=== PATIENT | female | born 1950 | race Caucasian/White ===

== ENCOUNTER → 2017-08-03 | Outpatient (CLI) | payer OTHER, MEDICAID ==
[~2017-08-03] MED LIST: ABILIFY 5 MG TAB5 M1 PO; ALBUTEROL SULF8.5 GM INH; AMBIEN 10 MG TA10 MG PO; AMBIEN 5 MG TABL5 M1 PO; ASPIR 8181 MG PO; ASPIRIN EC81 M1 PO; ASPIRIN81 M2 PO; AUGMENTIN 875-1 EACH PO; AUGMENTIN 875875 MG PO; AZITHROMYCIN 2250 MG PO; BACLOFEN20 MG PO; CALCIUM PO; CARBIDOPA-LEVO1 EAC6 PO; CARBIDOPA-LEVO1 EAC8 PO; CARBIDOPA-LEVO1 EAC9 PO; CARDIZEM30 MG PO; CEFDINIR300 MG PO; CEFUROXIME250 MG PO; CLONAZEPAM 0.50.5 M1 PO; CLONAZEPAM 1 MG1 M1 PO; COLACE100 MG PO; COUMADIN 3 MG TA3 M1 PO; CRESTOR5 MG PO; DILAUDID2 MG PO; DILTIAZEM 24HR120 M1 PO; DOXYCYCLINE 10100 MG PO; DUONEB 2.5-0.5 M3 ML INH; EFFEXOR XR150 MG PO; EFFEXOR XR75 MG PO; ESZOPICLONE3 MG PO; FENTANYL PA25 MCG/HR TRANSDERM; FENTANYL PA50 MCG/HR TRANSDERM; FLEXERIL PO; FLUCONAZOLE 10100 MG PO; FUROSEMIDE 20 M20 M1 PO; GABAPENTIN 100100 MG PO; HYDROCODON-ACE1 EAC7 PO; HYDROXYZINE HCL50 MG PO; IBUPROFEN 600600 M1 PO; IRON325 PO; K-DUR10 MEQ PO; KLONOPIN0.5 MG PO; KLOR-CON M2020 MEQ PO; LASIX 40 MG TAB40 M2 PO; LEVAQUIN 500 M500 M2 PO; LEVOTHYROXINE0.05 MG PO; LIDOCAINE 4% K1 EACH TOP; LIORESAL 10 MG10 MG PO; LIPITOR 10 MG10 M1 PO; LIPITOR10 MG PO; LISINOPRIL5 MG PO; LUNESTA3 MG PO; MELATONIN1 MG PO; MELATONIN3 M1 PO; MELATONIN5 M4 PO; METOPROLOL SUCC25 M1 PO; MIRALAX17 GM PO; MUCINEX600 MG PO; NEBULIZER MISCELL; NEURONTIN 300300 M1 PO; NEURONTIN100 MG PO; NORCO 5-325 TA1 EACH PO; OMEPRAZOLE 20 M20 M1 PO; OMEPRAZOLE20 M2 PO; OMEPRAZOLE20 MG PO; ONDANSETRON HCL4 M2 PO; OXYGEN MISCELL; PAROXETINE HCL10 MG PO; PAXIL 20 MG TAB20 MG PO; PAXIL10 MG; PAXIL10 MG PO; PAXIL20 MG PO; PERCOCET 5-3251 EACH PO; PERCOCET 7.5-31 EACH PO; POTASSIUM20 PO; PREDNISONE 10 M10 MG PO; PREDNISONE 20 M20 MG PO; PRILOSEC20 MG PO; PROAIR HFA8.5 GM INH; PROTONIX40 M4 PO; PROVENTIL HFA6.7 G1 INH; RANITIDINE 150150 M1 PO; RECLAST 55 MG/1002 IV; SENNA LAX8.6 MG PO; SENOKOT-S1 TA1 PO; SINEMET 25-1001 EAC1 PO; SPIRIVA INH; SSD CREAM 1% 5050 G1; SYNTHROID88 MCG PO; TRAMADOL 50 MG50 MG PO; TRAZODONE HCL50 MG PO; VENTOLIN HFA 1818 GM INH; VISTARIL 25 MG25 M1 PO; VITAMIN D31000 UNI2 PO; ZOFRAN ODT4 MG PO; [UNRECOGNIZED DRUG - OTHER] TOP
== END ==
LOC: M.MRI 08-01 07:30
DX: M51.36 Other intervertebral disc degeneration, lumbar region (principal); M25.551 Pain in right hip; M25.552 Pain in left hip; G20 Parkinson's disease; G62.9 Polyneuropathy, unspecified; R26.9 Unspecified abnormalities of gait and mobility

== ENCOUNTER → 2017-09-07 | Outpatient (CLI) | payer OTHER, MEDICAID ==
--- NOTE | 2017-10-11 13:59 | PAINCON ---
[address] [address] PAIN MANAGEMENT CONSULTATION Name: JOELCORAJOANNA PABLO Room: [facility] Fabian#: [id number] Admission: 09/07/17 Attend Phys: Anurag Boudreaux MD Discharge: Date of : 52 Report #: [id number] THIS REPORT FOR: //name// CC: Maylin Doty DATE OF SERVICE: 09/07/2017 CHIEF COMPLAINT: Chronic pain in the low back, hips, and knees. FOLLOWUP HISTORY: The patient is a 67-year-old female who has been referred to the pain clinic. She has a history of chronic pain. She has been on opioid medications. A number of months ago, she was on a Duragesic patch as well as 10 mg Broseley for pain control. The patient had a number of falls as well as orthostatic hypotension. As a result of that, the patient has been tapered from her medication opioids. At this juncture, she seems to be at the lowest effective dose without side effects. The patient also uses Neurontin. Chronic pain continues to limit the patient's activity levels. She spends a significant amount of her time in a wheelchair. She also suffers from Parkinson's disease and is followed by her doctor in that regard. She feels that her pain is about 50% improved with use of her current medications. She rates her pain as a 6/10. The patient feels that she is "hurting all the time." Describes as it is continuous, shooting and sharp. She has had hip replacements. The patient has been noting some constipation. She has been started on most Movantik to help with this narcotic-induced constipation. ALLERGIES: NEOSPORIN, BUSPAR AND TIZANIDINE. CURRENT MEDICATIONS: CompAir nebulizer, aspirin 81 mg daily, stool softener 100 mg 2 tablets by mouth at bedtime, omeprazole 20 mg, Lasix 20 mg p.r.n. edema, trazodone 50 mg at bedtime, paroxetine 20 mg, Lidoderm cream external painful areas, levothyroxine 81 mcg, carbidopa/levodopa 25/175 mg in the a.m. and 4 times daily, MiraLax 17 grams, baclofen 10 mg t.i.d. spasms, gabapentin 100 mg t.i.d., Broseley 5/325 one p.o. t.i.d., Klonopin 0.5 mg t.i.d. anxiety, Symbicort 160/4.5 aerosol pulse 2 times daily, benzonatate 200 mg p.r.n. cough t.i.d., ProAir 2 puffs q. 4 hours p.r.n. shortness of breath, ipratropium-albuterol 0.5/2.5 nebulizer q.i.d., shortness of breath, oxygen 3 liters 24 hours daily, Claritin 10 mg and Movantik 12.5 mg. PAST MEDICAL HISTORY: Anxiety/depression, hypertension, atrial fibrillation, peripheral vascular disease, colonic polyp, gastritis, metabolic syndrome, chronic obstructive pulmonary disease, gastroesophageal reflux, hypothyroidism, hyperlipidemia, non-Hodgkin's lymphoma, degenerative joint disease, chronic pain, osteoarthritis, diverticulosis, Parkinson's disease, atrophic vaginitis, and iron deficiency anemia. [address] [place] [address] PAIN MANAGEMENT CONSULTATION Name: CORA MALDONADO [id number] Admission: 09/07/17 Attend Phys: Anurag Boudreaux MD Discharge: Date of : 52 Report #: [id number] PAST SURGICAL HISTORY: Hysterectomy 1982, cholecystectomy in 2006, left hip fracture and nailing, left hip total replacement and revision in 1993 -- 01/2010, right elbow bone spur removed, right elbow fracture and repair, right elbow surgery in 2000 -- 12/2008 -- 06/2009, breast biopsy 2005, right axillary lymph node resection, polypectomy in 2006, left browplasty 07/2009, bilateral eye Lasik surgery, right cataract removal in 10/2011, trimalleolar fracture, status post ORIF in Fall 12/2016. HOSPITALIZATIONS/MAJOR DIAGNOSTIC PROCEDURES: 1. Bronchitis in 2011; pneumonia, nausea and vomiting in 2011; lethargy, low oxygen on 05/18/2012; tremors; Cardiac oxygen, started to 2013; pneumonia in 06/2015; Congestive heart failure in 10/2015; Congestive failure in 12/2015. SOCIAL HISTORY: The patient is a former smoker, quit in 2012. Marital status, devoiced; ambulates, using a wheelchair. REVIEW OF SYSTEMS: A 12-point review recent weight change, fatigue, weakness, headaches, wears glasses, walking, shortness of breath, swelling of feet, ankles, frequent coughs, shortness of breath, constipation, wakes at night to urinate, joint pain, joint stiffness, weakness of muscles, muscle pain and cramps, back pain, difficulty walking; varicose veins; frequent recurrent headaches, lightheadedness, dizziness, numbness and tingling, tremors, memory loss, nervousness, depression, slow to heal. LABORATORY DATA: MRI of the cervical spine dated 12/11/2012 reveals findings of C3-C4 widely patent foramen. Mild broad-based disk bulge. This represents the level of greatest disk bulge. It does not impinge upon the spinal cord or foramen. C4-C5 widely patent broad disk bulge. C5-C6 widely patent broad disk bulge. C6-C7 right foraminal narrowing, left foramen intact, mild broad-based disk bulge. C7-T1 widely patent bilaterally. No significant bulging. MRI lumbar spine without contrast on 08/03/2017 reveals lumbar spine is anatomically aligned. The L1-L2, L2-L3 and L3-L4 spaces are normal in appearance. There is minimal degenerative disk disease at L4-L5 without disk bulge. Spinal stenosis or neural foraminal narrowing. Mild degenerative disk disease at L5-S1 with mild broad-based disk bulge with no spinal stenosis or neural foraminal narrowing. IMPRESSION: Very mild degenerative disk disease of the lower lumbar spine. PAIN CLINIC ASSESSMENT: 1. The patient has osteoarthritis, right hip and left hip. 2. Height 5 feet 10 inches, weight 247 pounds. BMI not listed. 3. VITAL SIGNS: Blood pressure 100/67, heart rate 76, respiratory rate 16, room air saturation 96%, temperature 97.6. 4. Pain intensity 8-10. [place] [address] PAIN MANAGEMENT CONSULTATION Name: CORA MALDONADO [facility] Peralta[facility] [id number] Admission: 09/07/17 Attend Phys: Anurag Boudreaux MD Discharge: Date of : 52 Report #: [id number] 5. Fall risk. The patient has not fallen in the last 3 months. She has fallen in the past and notes some increased chronic pain in her right hip, which can be problematic. 6. Blood thinner. The patient is not on a blood thinning medication. 7. History of hypertension. The patient is not being treated for hypertension. 8. Opioid greater than 6 weeks. The patient has been using opioids for some time. She has been weaned down to 5 mg p.o. hydrocodone t.i.d. 9. Risk assessment tool. 10. Functional assessment tool. 11. Recreational drugs. The patient denies use of recreational drugs. 12. Tobacco: The patient quit smoking about 4 years ago; 50-year smoking history. 13. Alcohol: The patient denies use of alcoholic beverages. PHYSICAL EXAMINATION: GENERAL: The patient is a well-developed white female. She is alert and oriented. Does have some symptomatology consistent with parkinsonian disease. HEENT: Normocephalic, atraumatic. Extraocular muscles intact. Sclerae nonicteric. Mucous membranes moist. Hearing within normal limits. NECK: Without adenopathy reasonable range of motion, some limitations. CHEST: Decreased breath sounds. HEART: Regular rate. EXTREMITIES: Upper extremities muscle strength 4+/5; lower muscle strength 4+/5. The patient complains of pain and discomfort in her hips, right and left. The patient is in a wheelchair. Some decrease muscle strength in her lower extremities. She complains of pain in the knees and low back. IMPRESSION: 1. Chronic pain treated with opioid therapy in the past and tapered to her current dose at this juncture. 2. Hypertension. 3. Atrial fibrillation history. 4. Peripheral vascular disease. 5. Gastritis. 6. Metabolic syndrome. 7. Chronic obstructive pulmonary disease, uses CPAP machine. 8. Gastroesophageal reflux. 9. Hypothyroidism. 10. Hyperlipidemia. 11. Non-Hodgkin's lymphoma. 12. Degenerative joint disease. 13. Osteoarthritis. 14. Diabetes ketoacidosis. 15. Parkinson's disease. 16. Atrophic vaginitis. 17. Depression with anxiety. [address] [address] PAIN MANAGEMENT CONSULTATION Name: CORA MALDONADO Room: [facility] [place] Peralta#: [id number] Admission: 09/07/17 Attend Phys: Anurag Boudreaux MD Discharge: Date of : 52 Report #: [id number] RECOMMENDATIONS: We discussed treatment options with the patient. We explained that the CDC has set forth guidelines for opioid use. Her doctor has tried to taper her down to a level that would be helpful with pain. We are aware that more than likely we will not be able to quell the patient's pain completely, but hopefully with use of opioid medications will continue to be helpful. We will provide the patient with hydrocodone 5 mg 1 p.o. t.i.d. We will note its efficacy. She will call us if she has any problems with her medications. We would like to thank you for letting us participate in her care. The patient will follow up in the pain clinic in the near future. <ELECTRONICALLY SIGNED> By: Anurag Boudreaux MD 10/11/17 1359 1549 0036N. José Boudreaux MD /nt
== END ==
LOC: M.PC 01:37
DX: M54.5 Low back pain (principal); M25.561 Pain in right knee; M25.562 Pain in left knee; M25.551 Pain in right hip; M25.552 Pain in left hip

== ENCOUNTER 2017-10-02 14:55 | Inpatient (IN) | payer OTHER, MEDICAID ==
[~2017-10-02] VITALS: Ht 177.8 cm; Wt 115.7 kg
[~2017-10-02 14:55] MED LIST changes: -AZITHROMYCIN 2250 MG PO; -CEFDINIR300 MG PO; -MUCINEX600 MG PO
[2017-10-02 15:24] VITALS: BP 130/67
[2017-10-02 16:21] LABS: ABSOLUTE EOSINOPHILS 0.1 thou/uL (0.0-0.7); ABSOLUTE LYMPHOCYTES 0.6 thou/uL (0.8-5.3); ABSOLUTE MONOCYTES 0.5 thou/uL (0.0-1.2); ABSOLUTE NEUTROPHILS 3.5 thou/uL (1.6-8.1); BASOPHILS 0.5 %; EOSINOPHILS 2.4 %; HEMATOCRIT 35.6 % (37.0-47.0); HEMOGLOBIN 11.7 gm/dL (12.0-15.0); LYMPHOCYTES 12.6 %; MCH 29.9 pg (26.0-34.0); MCHC 32.8 g/dL (28.0-37.0); MONOCYTES 11.3 %; MPV 8.5 fl. (7.2-11.1); NUCLEATED RBCS 0 /100WBC; PLATELET COUNT* 169 thou/uL (150-400); POLYS 73.2 %; RBC 3.91 mil/uL (4.20-5.00); RDW-CV 15.5 % (10.5-14.5); WBC 4.7 thou/uL (4.0-11.0)
[2017-10-02 16:30] LABS: ANION GAP 4 mmol/L (7-16); BUN 10 mg/dL (7-18); CALCIUM 8.7 mg/dL (8.5-10.1); CHLORIDE 105 mmol/L (98-107); CO2 34 mmol/L (21-32); CREATININE 0.8 mg/dL (0.6-1.3); GLUCOSE 111 mg/dL (70-99); POTASSIUM 3.7 mmol/L (3.5-5.1); SODIUM 143 mmol/L (136-145)
[2017-10-02 16:37] LABS: ALBUMIN 3.1 g/dL (3.4-5.0); ALKALINE PHOSPHATASE 84 U/L (46-116); SGOT 18 U/L (15-37); SGPT 6 U/L (30-65); TOTAL BILIRUBIN 0.3 mg/dL (<0.1-1.0); TROPONIN-I LEVEL <0.06 ng/mL (<0.06)
[2017-10-02 17:32] VITALS: BP 170/97
[2017-10-02 18:50] VITALS: BP 146/84
--- NOTE | 2017-10-02 19:45 | NUR ---
PATIENT ADMITTED TO ROOM 308 VIA CART FROM ER AT 1750. ADMISSION HISTORY, ASSESSMENT, AND VITALS CHARTED. IV FLUIDS STARTED AND IV ANTIBIOTICS INFUSING. URINE SAMPLE AND SPUTUM SAMPLE SENT. UP SBA TO BSC. SCDS IN PLACE. O2 IN PLACE AT 3L/NC. PATIENT'S DAUGHTER BROUGHT IN HOME CPAP. ORIENTED TO ROOM AND ENVIRONMENT. CALL LIGHT WITHIN REACH. HOURLY ROUNDING COMPELTED. WILL CONTINUE WITH PLAN OF CARE.
[2017-10-02 19:58] LABS: URINE BILIRUBIN NEGATIVE (Negative); URINE BLOOD NEGATIVE (Negative); URINE CLARITY CLEAR; URINE COLOR YELLOW; URINE GLUCOSE-RANDOM NEGATIVE (Negative); URINE KETONES NEGATIVE (Negative); URINE LEUKOCYTES-REFLEX NEGATIVE (Negative); URINE NITRITE-REFLEX NEGATIVE (Negative); URINE PROTEIN NEGATIVE (Negative); URINE UROBILINOGEN 0.2 E.U./dl (0.2-1.0)
[2017-10-02 21:00] VITALS: BP 100/64
[2017-10-03 00:02] VITALS: BP 88/38; BP 96/54
[2017-10-03 03:36] VITALS: BP 118/67
[2017-10-03 04:38] LABS: HEMATOCRIT 33.7 % (37.0-47.0); MCH 29.5 pg (26.0-34.0); MCHC 32.6 g/dL (28.0-37.0); MCV 90.6 fL (80.0-100.0); MPV 8.2 fl. (7.2-11.1); RBC 3.72 mil/uL (4.20-5.00); RDW-CV 14.8 % (10.5-14.5); WBC 3.8 thou/uL (4.0-11.0)
[2017-10-03 04:55] LABS: CREATININE 0.8 mg/dL (0.6-1.3); MAGNESIUM 2.1 mg/dL (1.8-2.4); POTASSIUM 4.6 mmol/L (3.5-5.1)
--- NOTE | 2017-10-03 05:36 | NUR ---
PATIENT SLEPT PART OF THE NIGHT. IV FLUIDS CONTINUE TO INFUSE ORDERED. PATIENT REMAINS ON OXYGEN AT 3L PER NASAL CANNULA. PATIENT WAS GIVEN PAIN MEDICINE TWICE THIS SHIFT. WILL CONTINUE TO MONITOR.
[2017-10-03 08:10] VITALS: BP 136/62
[2017-10-03] MEDS ORDERED: CLONAZEPAM 0.50.5 M1 PO (10:36)
--- NOTE | 2017-10-03 13:56 | EKG ---
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 Helper: [place] : 1950 Requested By: Michelle Rogers Order Number: [id number] MD: Bob Jones Measurements Intervals [place] Rate: 102 P: 41 PA: 192 QRS: 95 QRSD: 106 T: -20 QT: 343 QTc: 447 Interpretive Statements Sinus tachycardia Right axis deviation Borderline repolarization abnormality Compared to ECG 03/16/2017 11:59:45 Sinus rate has increased Electronically Signed On 10-03-2017 13:56:52 CDT by Bob Jones [email or web address] <ELECTRONICALLY SIGNED> By: Bob Jones MD, [facility] 10/03/17 1356 1615 1615 Bob Jones MD, [facility] /EPI
--- NOTE | 2017-10-03 14:56 | NUR ---
SW met with pt to complete initial assessment, introduce self, and SW role. Pt alert and oriented. Pt lives at home with her dtr. Pt has wc, RW, cane, O2 and CPAP. Pt has hx of [facility] and hx [facility]. Pt said she is not current with OP therapy in [place] and plans to return home with dtr and resume OP therapies at nd. SW to continue to follow. No needs anticipated.
[2017-10-03 16:00] VITALS: BP 128/41
--- NOTE | 2017-10-03 18:07 | NUR ---
PATIENT HAS BEEN A/O X 4 THIS SHIFT. MEDICATED FOR GENERALIZED PAIN WITH PARTIAL RELIEF. O2 IN PLACE AT 3L/NC, CONTINUES ON RT TREATMENTS AND TESSALON PERLES. PATIENT UP SBA TO BSC. PATIENT TOLERATING DIET. PATIENT TO BE SALINE LOCKED AFTER CURRENT IVF COMPLETED. CONTINUES ON IV STEROIDS. TO HAVE CHEST XRAY IN AM. HOURLY ROUNDING COMPLETED. CALL LIGHT WITHIN REACH. WILL CONTINUE WITH PLAN OF CARE.
[2017-10-04 00:40] VITALS: BP 101/70
[2017-10-04 04:37] LABS: HEMATOCRIT 34.2 % (37.0-47.0); HEMOGLOBIN 11.4 gm/dL (12.0-15.0); MCH 30.3 pg (26.0-34.0); MCHC 33.4 g/dL (28.0-37.0); MCV 90.9 fL (80.0-100.0); MPV 8.2 fl. (7.2-11.1); NUCLEATED RBCS 0 /100WBC; PLATELET COUNT* 187 thou/uL (150-400); RBC 3.77 mil/uL (4.20-5.00); RDW-CV 15.1 % (10.5-14.5); WBC 6.6 thou/uL (4.0-11.0)
[2017-10-04 04:44] LABS: CALCIUM 8.1 mg/dL (8.5-10.1); MAGNESIUM 2.4 mg/dL (1.8-2.4); POTASSIUM 4.5 mmol/L (3.5-5.1)
--- NOTE | 2017-10-04 05:57 | NUR ---
PATIENT SLEPT MOST OF THE NIGHT. IV REMAINS SALINE LOCKED. PATIENT WAS GIVEN PAIN MEDICINE ONCE THIS SHIFT. PATIENT REMAINS ON OXYGEN AT 3L PER NASAL CANNULA WITH CPAP AT NIGHT. WILL CONTINUE TO MONITOR.
[2017-10-04 06:15] LABS: ABSOLUTE MONOCYTES 0.2 thou/uL (0.0-1.2); ABSOLUTE NEUTROPHILS 5.4 thou/uL (1.6-8.1)
[2017-10-04 06:16] LABS: PLATELET ESTIMATE ADEQUATE
[2017-10-04 08:15] VITALS: BP 144/79
[2017-10-04 17:15] VITALS: BP 129/73
--- NOTE | 2017-10-04 19:33 | NUR ---
PATIENT HAS BEEN A/O X 4 THIS SHIFT. MEDICATED FOR GENERALIZED PAIN WITH PARTIAL RELIEF THIS SHIFT. SALINE LOCK PATENT. PATIENT CONTINUES ON O2 AT 3L/NC. PATIENT WITH HARSH NON PRODUCTIVE COUGH, TESSALON PERLES HELPING COUGH. PATIENT HAD REPEAT CHEST XRAY THIS SHIFT. UP TO CHAIR FOR MEALS. SBA TO BSC. IV STEROIDS TAPERING DOWN. FAMILY IN THIS AFTERNOON TO VISIT. PER PATIENT TENTATIVE DISCHARGE ON MONDAY. HOURLY ROUNDING COMPLETED. CALL LIGHT WITHIN REACH. WILL CONTINUE WITH PLAN OF CARE.
[2017-10-05 00:38] VITALS: BP 105/62
--- NOTE | 2017-10-05 05:51 | NUR ---
PATIENT SLEPT MOST OF THE NIGHT. IV REMAINS SALINE LOCKED. PATIENT WAS GIVEN PAIN MEDICINE ONCE THIS SHIFT. PATIENT REMAINS ON OXYGEN AT 3L. PATIENT IS POSSIBLY GOING HOME TODAY. WILL CONTINUE TO MONITOR.
[2017-10-05 09:00] VITALS: BP 148/92
[2017-10-05] MEDS ORDERED: AZITHROMYCIN 2250 MG PO (09:46)
[2017-10-05] MEDS ORDERED: CEFDINIR300 MG PO (09:46)
[2017-10-05] MEDS ORDERED: PREDNISONE 10 M10 MG PO (09:46)
[2017-10-05] MEDS ORDERED: MUCINEX600 MG PO (09:46)
[2017-10-05 11:21] VITALS: BP 148/92
--- NOTE | 2017-10-05 16:35 | NUR ---
PATIENT DISCHARGED TO HOME WITH DAUGHTER. PATIENT VERBALIZES UNDERSTANDING OF PAPERWORK AND SCRIPTS. IV DC'D. 02 3L NC AT HOME. ALL BELONGINGS SENT WITH PATIENT. NO COMPLAINTS OF PAIN THIS SHIFT. PATIENT TAKEN OUT VIA WHEELCHAIR.
== END 2017-10-05 16:37 | disposition home or self-care (01) | DRG 871 ==
LOC: M.ERS 14:55 → M.TBA-ER 16:39 → M.3W 16:39
PROVIDERS: Physician Assistant; ADMIT Internal Medicine
DX: A41.9 Sepsis, unspecified organism (principal); J96.21 Acute and chronic respiratory failure with hypoxia; J15.9 Unspecified bacterial pneumonia; E44.1 Mild protein-calorie malnutrition; J44.1 Chronic obstructive pulmonary disease with (acute) exacerbation; J44.0 Chronic obstructive pulmonary disease with (acute) lower respiratory infection; I48.91 Unspecified atrial fibrillation; Z96.642 Presence of left artificial hip joint; G89.29 Other chronic pain; M54.9 Dorsalgia, unspecified; M19.90 Unspecified osteoarthritis, unspecified site; G20 Parkinson's disease; E05.90 Thyrotoxicosis, unspecified without thyrotoxic crisis or storm; Z99.81 Dependence on supplemental oxygen; Z92.21 Personal history of antineoplastic chemotherapy; Z85.71 Personal history of Hodgkin lymphoma; Z79.899 Other long term (current) drug therapy; Z88.1 Allergy status to other antibiotic agents; Z88.8 Allergy status to other drugs, medicaments and biological substances; Z68.36 Body mass index [BMI] 36.0-36.9, adult

== ENCOUNTER 2018-06-12 08:44 | Emergency (ER) | payer OTHER, MEDICAID ==
[~2018-06-12] VITALS: Ht 177.8 cm; Wt 110.7 kg
[~2018-06-12 08:44] MED LIST changes: +AZITHROMYCIN 2250 MG PO; +CEFDINIR300 MG PO; +MUCINEX600 MG PO
[2018-06-12] MEDS ORDERED: MOBIC15 MG PO (09:17)
[2018-06-12 09:37] LABS: URINE BILIRUBIN NEGATIVE (Negative); URINE BLOOD NEGATIVE (Negative); URINE CLARITY CLEAR; URINE COLOR YELLOW; URINE GLUCOSE-RANDOM NEGATIVE (Negative); URINE KETONES NEGATIVE (Negative); URINE LEUKOCYTES-REFLEX 1+ (Negative); URINE NITRITE-REFLEX NEGATIVE (Negative); URINE PROTEIN NEGATIVE (Negative); URINE UROBILINOGEN 0.2 E.U./dl (0.2-1.0)
[2018-06-12 09:46] LABS: SQUAMOUS 0-3 Few /LPF (0-3)
[2018-06-12 09:47] LABS: BACTERIA-REFLEX 1-9 Few /HPF (None Seen); CASTS None Seen /LPF (None Seen); CRYSTALS None Seen /LPF (None Seen); MUCUS 0-3 Light strn/LPF (None Seen); URINE RBC None Seen /HPF (0-2); URINE WBC-REFLEX 0-5 Rare /HPF (0-5)
[2018-06-12] MEDS ORDERED: KEFLEX500 M1 PO (09:48)
[2018-06-12] MEDS ORDERED: BACTRIM DS TAB1 EACH PO (09:55)
[2018-06-12 10:03] VITALS: BP 139/76
== END 2018-06-12 10:03 | disposition home or self-care (01) ==
LOC: M.ERS 08:44
PROVIDERS: Personal Emergency Response Attendant
DX: M25.561 Pain in right knee (principal); N39.0 Urinary tract infection, site not specified; I48.91 Unspecified atrial fibrillation; G89.29 Other chronic pain; M54.9 Dorsalgia, unspecified; J44.9 Chronic obstructive pulmonary disease, unspecified; G20 Parkinson's disease; E03.9 Hypothyroidism, unspecified; J96.11 Chronic respiratory failure with hypoxia; M19.90 Unspecified osteoarthritis, unspecified site; F17.210 Nicotine dependence, cigarettes, uncomplicated; Z86.2 Personal history of diseases of the blood and blood-forming organs and certain disorders involving the immune mechanism; Z96.642 Presence of left artificial hip joint; Z88.1 Allergy status to other antibiotic agents; Z88.8 Allergy status to other drugs, medicaments and biological substances

== ENCOUNTER → 2018-06-13 | Outpatient (CLI) | payer OTHER, MEDICAID ==
[~2018-06-13] MED LIST changes: +BACTRIM DS TAB1 EACH PO; +KEFLEX500 M1 PO; +MOBIC15 MG PO
[2018-06-13 14:35] LABS: ABSOLUTE EOSINOPHILS 0.1 thou/uL (0.0-0.7); ABSOLUTE MONOCYTES 0.4 thou/uL (0.0-1.2); ABSOLUTE NEUTROPHILS 4.6 thou/uL (1.6-8.1); BASOPHILS 0.6 %; EOSINOPHILS 1.4 %; HEMATOCRIT 38.3 % (37.0-47.0); HEMOGLOBIN 12.2 gm/dL (12.0-15.0); LYMPHOCYTES 16.5 %; MCHC 31.7 g/dL (28.0-37.0); MCV 91.4 fL (80.0-100.0); MONOCYTES 6.5 %; MPV 7.9 fl. (7.2-11.1); NUCLEATED RBCS 0 /100WBC; PLATELET COUNT* 183 thou/uL (150-400); RBC 4.19 mil/uL (4.20-5.00); WBC 6.1 thou/uL (4.0-11.0)
[2018-06-13 14:55] LABS: ALBUMIN 3.2 g/dL (3.4-5.0); CALCIUM 8.5 mg/dL (8.5-10.1); CREATININE 1.1 mg/dL (0.6-1.3); POTASSIUM 4.2 mmol/L (3.5-5.1); TOTAL BILIRUBIN 0.3 mg/dL (<0.1-1.0); TOTAL PROTEIN 7.1 g/dL (6.4-8.2)
[2018-06-13 15:55] LABS: ESR (SEDRATE) 36 mm/hr (0-30)
[2018-06-13 23:06] LABS: IgA 132 mg/dL (87-352); IgG 1033 mg/dL (700-1600); IgM 174 mg/dL (26-217)
== END ==
LOC: M.LAB 14:04
PROVIDERS: Psychiatry & Neurology Neuromuscular Medicine
DX: G20 Parkinson's disease (principal); G62.9 Polyneuropathy, unspecified; R26.9 Unspecified abnormalities of gait and mobility; J44.9 Chronic obstructive pulmonary disease, unspecified

== ENCOUNTER 2019-03-24 18:17 | Emergency (ER) | payer OTHER, MEDICAID ==
[~2019-03-24] VITALS: Ht 177.8 cm; Wt 113.4 kg
[2019-03-24] MEDS ORDERED: PROMETHAZINE-D473 M1 PO (18:32)
[2019-03-24] MEDS ORDERED: CEFDINIR300 MG PO (18:33)
[2019-03-24] MEDS ORDERED: MIRALAX119 GM PO (18:34)
[2019-03-24] MEDS ORDERED: BENZONATATE200 MG PO (18:34)
[2019-03-24] MEDS ORDERED: MELOXICAM15 MG PO (18:35)
[2019-03-24] MEDS ORDERED: MUCINEX600 MG PO (18:36)
[2019-03-24] MEDS ORDERED: SYMBICORT160 MCG/4. INH (18:36)
[2019-03-24] MEDS ORDERED: TRAZODONE 150150 M1 PO (18:36)
[2019-03-24] MEDS ORDERED: FUROSEMIDE 20 M20 MG PO (18:37)
[2019-03-24] MEDS ORDERED: OMEPRAZOLE40 MG PO (18:37)
[2019-03-24] MEDS ORDERED: CLONAZEPAM 0.50.5 M1 PO (18:47)
[2019-03-24 18:51] LABS: ABSOLUTE EOSINOPHILS 0.1 thou/uL (0.0-0.7); ABSOLUTE LYMPHOCYTES 0.9 thou/uL (0.8-5.3); ABSOLUTE MONOCYTES 0.5 thou/uL (0.0-1.2); ABSOLUTE NEUTROPHILS 5.2 thou/uL (1.6-8.1); BASOPHILS 0.5 %; EOSINOPHILS 2.2 %; HEMATOCRIT 36.5 % (37.0-47.0); HEMOGLOBIN 11.7 gm/dL (12.0-15.0); LYMPHOCYTES 13.2 %; MCH 28.9 pg (26.0-34.0); MCHC 32.2 g/dL (28.0-37.0); MCV 89.8 fL (80.0-100.0); MONOCYTES 7.3 %; MPV 7.6 fl. (7.2-11.1); NUCLEATED RBCS 0 /100WBC; PLATELET COUNT* 233 thou/uL (150-400); POLYS 76.8 %; RBC 4.06 mil/uL (4.20-5.00); RDW-CV 15.8 % (10.5-14.5); WBC 6.7 thou/uL (4.0-11.0)
[2019-03-24 19:01] LABS: APTT 24.3 Seconds (25.0-31.3); CALCIUM 8.2 mg/dL (8.5-10.1); CREATININE 1.1 mg/dL (0.6-1.3); POTASSIUM 4.2 mmol/L (3.5-5.1); PROTIME 10.1 Seconds (9.20-11.50)
[2019-03-24 19:25] LABS: CK-MB MASS 0.5 ng/mL (<0.5-3.6); MAGNESIUM 1.8 mg/dL (1.8-2.4); TOTAL BILIRUBIN 0.2 mg/dL (<0.1-1.0); TOTAL PROTEIN 7.1 g/dL (6.4-8.2)
[2019-03-24 19:45] VITALS: BP 124/73
--- NOTE | 2019-03-25 13:11 | EKG ---
[place] [address] ELECTROCARDIOGRAM REPORT Name: CORA MALDONADO Room: [facility]#: [id number] Admission: 03/24/19 Attend Phys: Discharge: 03/24/19 Date of : 52 Report #: [id number] THIS REPORT FOR: //name// [facility] ED Test Date: 2019-03-24 Test Time: 18:21:58 Pat Name: CORA MALDONADO Department: Room: Gender: F Teamsite Developer: KRISTINA : 1950 Requested By: Kelvin Winston Order Number: [id number] MD: Jose Shoemaker Measurements Intervals [place] Rate: 85 P: 32 ID: 160 QRS: 85 QRSD: 104 T: 62 QT: 379 QTc: 451 Interpretive Statements Sinus rhythm Borderline right axis deviation Nonspecific T abnormalities, anterior leads Compared to ECG 10/02/2017 16:15:59 Sinus tachycardia no longer present Electronically Signed On 03-25-2019 13:11:05 GROUP THERAPY COUNSELOR by Jose Shoemaker [email or web address] <ELECTRONICALLY SIGNED> By: Jose Shoemaker MD, [facility] 03/25/19 1311 20 20 Jose Shoemaker MD, FAC /EPI
== END 2019-03-24 19:45 | disposition home or self-care (01) ==
LOC: M.ERS 18:17
PROVIDERS: Family Medicine
DX: M94.0 Chondrocostal junction syndrome [Tietze] (principal); I48.91 Unspecified atrial fibrillation; G89.29 Other chronic pain; M54.9 Dorsalgia, unspecified; E03.9 Hypothyroidism, unspecified; M19.90 Unspecified osteoarthritis, unspecified site; Z88.1 Allergy status to other antibiotic agents

== ENCOUNTER 2019-07-15 15:36 | Inpatient (IN) | payer OTHER, MEDICAID ==
[~2019-07-15] VITALS: Ht 177.8 cm; Wt 113.4 kg
[~2019-07-15 15:36] MED LIST changes: +BENZONATATE200 MG PO; +FUROSEMIDE 20 M20 MG PO; +MELOXICAM15 MG PO; +MIRALAX119 GM PO; +OMEPRAZOLE40 MG PO; +ONDANSETRON ODT4 MG PO; +PREDNISONE 5 MG5 M1 PO; +PROMETHAZINE-D473 M1 PO; +SYMBICORT160 MCG/4. INH; +SYNTHROID88 MC1 PO; +TRAZODONE 150150 M1 PO
[2019-07-15 15:47] VITALS: BP 106/67
[2019-07-15 16:38] LABS: ABSOLUTE BASOPHILS 0.1 thou/uL (0.0-0.2); ABSOLUTE LYMPHOCYTES 2.1 thou/uL (0.8-5.3); ABSOLUTE MONOCYTES 0.9 thou/uL (0.0-1.2); ABSOLUTE NEUTROPHILS 7.8 thou/uL (1.6-8.1); BASOPHILS 0.5 %; EOSINOPHILS 0.4 %; HEMATOCRIT 40.5 % (37.0-47.0); HEMOGLOBIN 13.3 gm/dL (12.0-15.0); LYMPHOCYTES 19.4 %; MCH 29.2 pg (26.0-34.0); MCHC 32.9 g/dL (28.0-37.0); MONOCYTES 7.9 %; MPV 7.8 fl. (7.2-11.1); NUCLEATED RBCS 0 /100WBC; PLATELET COUNT* 326 thou/uL (150-400); POLYS 71.8 %; RBC 4.55 mil/uL (4.20-5.00); RDW-CV 15.4 % (10.5-14.5); WBC 10.9 thou/uL (4.0-11.0)
[2019-07-15 16:44] LABS: CALCIUM 9.1 mg/dL (8.5-10.1); CREATININE 1.1 mg/dL (0.6-1.3); POTASSIUM 3.6 mmol/L (3.5-5.1)
[2019-07-15 16:55] LABS: ALBUMIN 3.5 g/dL (3.4-5.0); TOTAL BILIRUBIN 0.4 mg/dL (<0.1-1.0); TOTAL PROTEIN 7.5 g/dL (6.4-8.2)
[2019-07-15 17:01] LABS: URINE BILIRUBIN NEGATIVE (Negative); URINE BLOOD TRACE (Negative); URINE CLARITY CLEAR; URINE COLOR YELLOW; URINE GLUCOSE-RANDOM NEGATIVE (Negative); URINE KETONES NEGATIVE (Negative); URINE LEUKOCYTES-REFLEX 1+ (Negative); URINE NITRITE-REFLEX NEGATIVE (Negative); URINE PROTEIN NEGATIVE (Negative); URINE SPECIFIC GRAVITY 1.015 (1.005-1.030); URINE UROBILINOGEN 0.2 E.U./dl (0.2-1.0)
[2019-07-15 17:13] LABS: BACTERIA-REFLEX 1-9 Few /HPF (None Seen); CASTS None Seen /LPF (None Seen); SQUAMOUS 0-3 Few /LPF (0-3); URINE RBC 0-2 Rare /HPF (0-2); URINE WBC-REFLEX 0-5 Rare /HPF (0-5)
[2019-07-15 17:14] LABS: URIC ACID CRYSTALS 0-3 Few /LPF (None Seen)
--- NOTE | 2019-07-15 18:54 | NUR ---
attempted to due CTA IV infiltrated with saline, I attempted to start IV 2 times patient returned to ED for new IV exam not compleated
[2019-07-15 20:48] LABS: AMP/METHAMP Negative (Negative); BARBITURATES Negative (Negative); BENZODIAZEPINES Negative (Negative); COCAINE Negative (Negative); METHADONE Negative (Negative); OPIATES POSITIVE (Negative); PCP Negative (Negative); THC Negative (Negative)
[2019-07-15 22:50] VITALS: BP 119/68
[2019-07-15 23:15] VITALS: BP 129/66
--- NOTE | 2019-07-16 05:53 | NUR ---
PATIENT ARRIVED ON FLOOR FROM ER AT ABOUT 2300. PATIENT ADMISSION HISTORY AND ASSESSMENT WAS COMPLETED CHARTED. IV FLUIDS WERE STARTED AT 100 ML/HR. PATIENT IS ON OXYGEN AT 3L AND WEARS THAT AT HOME. WILL CONTINUE TO MONITOR.
[2019-07-16 08:20] VITALS: BP 124/69
[2019-07-16 08:43] VITALS: BP 120/72
[2019-07-16 08:45] VITALS: BP 113/62
[2019-07-16 08:49] VITALS: BP 108/69
--- NOTE | 2019-07-16 12:08 | NUR ---
CM SPOKE TO THE PT TO DISCUSS HER HOME SITUATION, AND DISCHARGE PLANNING NEEDS. PT HAD RECENTLY BEEN DISCHARGED FROM THIS HOSPITAL ON 07/09/19 TO HER HOME WITH HER DTR BEATRICE AND HER GRANDSON. PT NORMALLY INDEPENDENT AT HOME WITH BATHING AND DRESSING. PATIENT OWNS A WALKER, CANE, AND W/C FOR MOBILITY. PT HAS HOME 02 @ 3L AND CPAP THROUGH [facility]. PT HAS A HX OF SNF AT [facility]. PT IS CURRENTLY ON-SERVICE WITH [facility]. CM CONFIRMED THIS WITH [facility] AND PT IS ON-SERVICE WITH [facility] FOR NURSING ONLY. CM INFORMED PHYSICIAN OF ALL OF THE ABOVE INFO AND THE NEED FOR PT/OT ORDERS, AND ORDERS TO RESUME HH AT ID. CM WILL REMAIN AVAILABLE TO ASSIST AND FOLLOW NEEDED. [facility] PH: [phone] FAX: [phone]
--- NOTE | 2019-07-16 12:40 | EKG ---
[place] [address] ELECTROCARDIOGRAM REPORT Name: CORA MALDONADO Room: [address] ADM IN M.R.#: [id number] Admission: 07/15/19 Attend Phys: Tesfaye Arora, Discharge: Date of : 52 Date of Service: 07/15/19 1644 Report #: [id number] THIS REPORT FOR: //name// [facility] ED Test Date: 2019-07-15 Test Time: 16:44:54 Pat Name: CORA MALDONADO Department: Room: [facility] Gender: F Recreation Therapy Teacher: VICKIE : 1950 Requested By: Kallie Winslow Order Number: [id number] MD: Jose Shoemaker Measurements Intervals [place] Rate: 79 P: 26 SD: 160 QRS: 82 QRSD: 108 T: 46 QT: 379 QTc: 435 Interpretive Statements Sinus rhythm Borderline right axis deviation Abnormal T, consider ischemia, anterior leads Artifact in lead(s) I,II,aVR Compared to ECG 07/03/2019 14:55:48 Possible ischemia still present Electronically Signed On 07-16-2019 12:39:07 CDT by Jose Shoemaker [email or web address] <ELECTRONICALLY SIGNED> By: Jose Shoemaker MD, FACC 07/16/19 1239 1644 1644 Jose Shoemaker MD, FAC /EPI
--- NOTE | 2019-07-16 15:47 | 2DMMODE ---
[place] [address] 2 D/M-MODE ECHOCARDIOGRAM Name: MALDONADOCORA Room: [address] IN ..#: [id number] Admission: 07/15/19 Attend Phys: Tesfaye Arora, Discharge: Date of : 52 Date of Service: 07/16/19 1546 Report #: [id number] THIS REPORT FOR: cc: Maylin Morillo,Jose Mcacrty MD [facility] ~ APPROVED REPORT Study performed: 07/16/2019 14:13:51 EXAM: Comprehensive 2D, Doppler, and color-flow Echocardiogram Patient Location: In-Patient Room #: 304 Status: routine BSA: 2.29 HR: 73 bpm BP: 108/69 mmHg Rhythm: NSR Other Information Study Quality: Good Indications Hypotension Syncope 2D Dimensions IVSd: 14.42 (7-11mm) LVOT Diam: 19.56 (18-24mm) LVDd: 52.03 mm PWd: 13.57 (7-11mm) Ascending Ao: 36.09 (22-36mm) LVDs: 31.01 (25-40mm) Aortic Root: 37.57 mm Volumes Left Atrial Volume (Systole) LA ESV Index: 24.70 mL/m2 Aortic Valve AoV Peak Miguel Angel.: 1.30 m/s AO Peak Gr.: 6.71 mmHg LVOT Max P.46 mmHg AO Mean Gr.: 3.62 mmHg LVOT Mean P.80 mmHg LVOT Max V: 1.27 m/s AO V2 VTI: 24.88 cm LVOT Mean V: 0.75 m/s GENIA (VTI): 2.90 cm2 LVOT V1 VTI: 24.06 [place] [address] 2 D/M-MODE ECHOCARDIOGRAM Name: CORA MALDONADO Room: [address] IN ..#: [id number] Admission: 07/15/19 Attend Phys: Tesfaye Arora, Discharge: Date of : 52 Date of Service: 07/16/19 1546 Report #: [id number] Mitral Valve E/A Ratio: 0.75 MV Decel. Time: 339.69 ms MV E Max Miguel Angel.: 0.48 m/s MV PHT: 98.51 ms MVA (PHT): 2.23 cm2 TDI E/Lateral E': 6.86 E/Medial E': 4.80 Medial E' Miguel Angel.: 0.10 m/s Lateral E' Miguel Angel.: 0.07 m/s Pulmonary Valve PV Peak Miguel Angel.: 0.97 m/s PV Peak Gr.: 3.73 mmHg Tricuspid Valve RAP Estimate: 5.00 mmHg TR Peak Gr.: 21.68 mmHg RVSP: 26.00 mmHg PA Pressure: 26.00 mmHg Left Ventricle The left ventricle is normal size. There is normal LV segmental wall motion. Mild concentric left ventricular hypertrophy. Left ventricular systolic function is normal. The left ventricular ejection fraction is within the normal range. LVEF is 55-60%. Grade I - abnormal relaxation pattern. Right Ventricle The right ventricle is normal size. The right ventricular systolic function is normal. Atria The left atrium size is normal. The right atrium size is normal. Aortic Valve The aortic valve is normal in structure. No aortic regurgitation is present. There is no aortic valvular stenosis. Mitral Valve The mitral valve is normal in structure. Trace mitral regurgitation. No evidence of mitral valve stenosis. Tricuspid Valve The tricuspid valve is normal in structure[place] [address] 2 D/M-MODE ECHOCARDIOGRAM Name: MALDONADOCORA Room: [address]#: [id number] Admission: 07/15/19 Attend Phys: Tesfaye Arora, Discharge: Date of : 52 Date of Service: 07/16/19 1546 Report #: [id number] regurgitation. Pulmonic Valve The pulmonary valve is normal in structure. Trace pulmonic regurgitation. Great Vessels The aortic root is normal in size. IVC is normal in size and collapses >50% with inspiration. Pericardium There is no pericardial effusion. <Conclusion> Mild concentric left ventricular hypertrophy. LVEF is 55-60%. <ELECTRONICALLY SIGNED> By: Jose Shoemaker MD, [facility] 07/16/19 1546 1546 1546 Jose Shoemaker MD, FACC /INF
[2019-07-16 16:00] VITALS: BP 106/62
[2019-07-16 19:45] VITALS: BP 111/66
--- NOTE | 2019-07-17 00:09 | NUR ---
INITAL ASSESMENT COMPLETED AT 1944. PT PLEASANT AND COOPERATIVE. PT GIVEN PRN NORCO FOR PAIN AT THAT TIME WITH GOOD RESULTS. CALL LIGHT IN REACH, PT USING PROPERLY.
[2019-07-17 07:30] VITALS: BP 100/63
[2019-07-17 12:00] VITALS: BP 91/50
[2019-07-17 12:22] VITALS: BP 91/60
[2019-07-17 12:24] VITALS: BP 97/67
[2019-07-17 14:21] LABS: HEMATOCRIT 35.8 % (37.0-47.0); HEMOGLOBIN 11.8 gm/dL (12.0-15.0); MCHC 32.9 g/dL (28.0-37.0); MCV 91.2 fL (80.0-100.0); MPV 8.3 fl. (7.2-11.1); NUCLEATED RBCS 0 /100WBC; RBC 3.92 mil/uL (4.20-5.00); RDW-CV 15.4 % (10.5-14.5); WBC 10.4 thou/uL (4.0-11.0)
[2019-07-17 14:26] LABS: PLATELET COUNT* 205 thou/uL (150-400)
[2019-07-17 14:33] LABS: ALBUMIN 2.7 g/dL (3.4-5.0); CALCIUM 7.2 mg/dL (8.5-10.1); POTASSIUM 4.4 mmol/L (3.5-5.1); TOTAL BILIRUBIN 0.2 mg/dL (<0.1-1.0); TOTAL PROTEIN 6.1 g/dL (6.4-8.2)
[2019-07-17 15:41] LABS: ABSOLUTE LYMPHOCYTES 0.1 thou/uL (0.8-5.3); ABSOLUTE MONOCYTES 0.1 thou/uL (0.0-1.2); ABSOLUTE NEUTROPHILS 10.2 thou/uL (1.6-8.1); PLATELET ESTIMATE ADEQUATE
[2019-07-17 15:42] LABS: ANISOCYTOSIS Occasional
--- NOTE | 2019-07-17 18:19 | NUR ---
REMAINS A&OX4. RESPIRATIONS EVEN AND UNLABORED ON O2 AT 3L. CONTINUES TO BE HOARSE. C/OS HEADACHE. MEDICATED WITH PAIN MED PER MD ORDER. IVFS INFUSING WITHOUT DIFFICULTY. UP TO BSC WITH STAND BY ASSIST. CALL CARROLL IN REACH. NSG WILL CONTINUE TO ASSESS.
[2019-07-17 19:30] VITALS: BP 138/66
--- NOTE | 2019-07-18 00:13 | NUR ---
PT RANG CALL LIGHT AND REPORTED HEARTBURN. PT STATES SHE TAKES PROTONIX AT HOME AND HAS NOT HAD IT SINCE ADMIT. SPOKE WITH DR MCMAHAN AND RECIEVED ORDERS.
[2019-07-18 08:00] VITALS: BP 100/70
[2019-07-18] MEDS ORDERED: DEPAKOTE ER250 MG PO (12:46)
[2019-07-18] MEDS ORDERED: PREDNISONE 5 MG5 M1 PO (12:57)
--- NOTE | 2019-07-18 13:35 | NUR ---
Pt to dc home with family today and HH services to resume care. SW faxed referral and resumption of care RN orders plus PT OT ST orders to pt current HH and preference of [facility].
[2019-07-18 13:37] VITALS: BP 138/66
[2019-07-18 13:55] VITALS: BP 138/66
[2019-07-18 14:01] VITALS: BP 138/66
[2019-07-18 15:22] VITALS: BP 138/66
--- NOTE | 2019-07-18 18:56 | NUR ---
ASSESSMENT COMPLETED DOCUMENTED THIS MORNING. STABLE AND NO ACUTE ISSUES NOTED. DR. PRESCOTT ROUNDING AND DC ORDERS REC'D. 1430 PATIENT DC'D VIA W/C TO DAUGHTER'S CAR, DC INSTRUCTIONS GIVEN WITH UNDERSTANDING AND SIGNATURE. ALL PERSONAL BELONGINGS SENT.
== END 2019-07-18 14:30 | disposition home or self-care (01) | DRG 189 ==
LOC: M.ERS 15:36 → M.3W 22:06 → M.TBA-ER 22:06 → M.3W 23:00
PROVIDERS: Emergency Medicine; Internal Medicine; Physician Assistant; ADMIT Internal Medicine
PROC: 5A09357 Assistance with Respiratory Ventilation, Less than 24 Consecutive Hours, Continuous Positive Airway Pressure (ICD-10-PCS; principal; 2019-07-18)
DX: J96.21 Acute and chronic respiratory failure with hypoxia (principal); I95.1 Orthostatic hypotension; I48.91 Unspecified atrial fibrillation; Z96.642 Presence of left artificial hip joint; M54.9 Dorsalgia, unspecified; G89.29 Other chronic pain; J44.9 Chronic obstructive pulmonary disease, unspecified; G20 Parkinson's disease; M19.90 Unspecified osteoarthritis, unspecified site; F11.11 Opioid abuse, in remission; I87.8 Other specified disorders of veins; G47.33 Obstructive sleep apnea (adult) (pediatric); E03.9 Hypothyroidism, unspecified; Z79.82 Long term (current) use of aspirin; Z79.01 Long term (current) use of anticoagulants; Z85.72 Personal history of non-Hodgkin lymphomas; Z87.440 Personal history of urinary (tract) infections; Z79.891 Long term (current) use of opiate analgesic; Z79.899 Other long term (current) drug therapy; Z88.8 Allergy status to other drugs, medicaments and biological substances

== ENCOUNTER 2019-09-01 13:43 | Inpatient (IN) | payer OTHER, MEDICAID ==
[~2019-09-01] VITALS: Ht 180.3 cm; Wt 133.5 kg
[~2019-09-01 13:43] MED LIST changes: +DEPAKOTE ER250 MG PO
[2019-09-01 13:48] VITALS: BP 95/48
[2019-09-01 14:27] LABS: ABSOLUTE EOSINOPHILS 0.1 thou/uL (0.0-0.7); ABSOLUTE MONOCYTES 0.8 thou/uL (0.0-1.2); ABSOLUTE NEUTROPHILS 5.9 thou/uL (1.6-8.1); BASOPHILS 0.4 %; EOSINOPHILS 1.3 %; HEMATOCRIT 34.5 % (37.0-47.0); HEMOGLOBIN 11.4 gm/dL (12.0-15.0); LYMPHOCYTES 13.2 %; MCH 29.9 pg (26.0-34.0); MCV 90.5 fL (80.0-100.0); MONOCYTES 9.9 %; MPV 7.3 fl. (7.2-11.1); NUCLEATED RBCS 0 /100WBC; PLATELET COUNT* 278 thou/uL (150-400); POLYS 75.2 %; RBC 3.81 mil/uL (4.20-5.00); RDW-CV 16.2 % (10.5-14.5); WBC 7.8 thou/uL (4.0-11.0)
[2019-09-01 14:36] LABS: CALCIUM 8.3 mg/dL (8.5-10.1); CREATININE 1.3 mg/dL (0.6-1.3); POTASSIUM 3.8 mmol/L (3.5-5.1)
[2019-09-01 14:40] LABS: ALBUMIN 2.9 g/dL (3.4-5.0); TOTAL BILIRUBIN 0.5 mg/dL (<0.1-1.0); TOTAL PROTEIN 6.7 g/dL (6.4-8.2)
[2019-09-01 14:51] LABS: APTT 25.7 Seconds (25.0-31.3); PROTIME 10.4 Seconds (9.20-11.50)
[2019-09-01 15:29] LABS: URINE BILIRUBIN NEGATIVE (Negative); URINE BLOOD NEGATIVE (Negative); URINE CLARITY CLEAR; URINE COLOR YELLOW; URINE GLUCOSE-RANDOM NEGATIVE (Negative); URINE KETONES NEGATIVE (Negative); URINE LEUKOCYTES-REFLEX NEGATIVE (Negative); URINE NITRITE-REFLEX NEGATIVE (Negative); URINE PROTEIN NEGATIVE (Negative); URINE UROBILINOGEN 0.2 E.U./dl (0.2-1.0)
[2019-09-01 18:15] VITALS: BP 108/60
--- NOTE | 2019-09-01 19:46 | NUR ---
I TOOK REPORT ON THE PATIENT FROM MORGAN IN THE ER AND SHE ARRIVED AT 1835. SHE WAS TRANSFERED BEDS AND SKIN WAS CHECKED. MONITOR WAS PLACED AND FLUIDS WERE HUNG. PAIN MEDS WERE GIVEN. SHE HAD A BOX LUNCH FOR DINNER. REPORT GIVEN TO SERGIO. SHE CAME ON A NRB AT 15 LITERS AND I TITRATED DOWN TO 5 LITERS NC. POOLE WAS DRAINED. ER SAID THAT ORTHO CONSULT WAS CALLED.
[2019-09-01 20:30] VITALS: BP 100/54
[2019-09-02 01:00] VITALS: BP 108/64
[2019-09-02 05:18] VITALS: BP 106/70
[2019-09-02 05:19] LABS: CALCIUM 7.8 mg/dL (8.5-10.1); CREATININE 1.3 mg/dL (0.6-1.3); MAGNESIUM 2.2 mg/dL (1.8-2.4); POTASSIUM 3.7 mmol/L (3.5-5.1)
--- NOTE | 2019-09-02 06:09 | NUR ---
PT CARE ASSUMED AT 1930. SAT MAINTAINED IN O2. ALERT AND ORIENTED X4. PT IS PAINFUL. DENIES SOB. CALL LOGHT WITHIN REACH AND BED IN LOW POSITION. HOURLY ROUNDING DONE FOR PT SAFETY.
[2019-09-02 08:00] VITALS: BP 90/53
--- NOTE | 2019-09-02 10:39 | EKG ---
[place] [address] ELECTROCARDIOGRAM REPORT Name: CORA MALDONADO Room: [address] IN .R.#: [id number] Admission: 09/01/19 Attend Phys: Jeffy Chandler, Discharge: Date of : 52 Date of Service: 09/01/19 1351 Report #: [id number] THIS REPORT FOR: //name// [facility] ED Test Date: 2019-09-01 Test Time: 13:51:21 Pat Name: CORA MALDONADO Department: Room: [facility] Gender: F Electrician Marine: SAIRA : 1950 Requested By: Sonia Hughes Order Number: [id number] MD: Jose Shoemaker Measurements Intervals [place] Rate: 79 P: 40 CA: 174 QRS: 91 QRSD: 103 T: 57 QT: 407 QTc: 467 Interpretive Statements Sinus rhythm Right axis deviation Abnormal T, consider ischemia, anterior leads Compared to ECG 07/15/2019 16:44:54 No significant changes Electronically Signed On 09-02-2019 10:37:36 CDT by Jose Shoemaker [email or web address] <ELECTRONICALLY SIGNED> By: Jose Shoemaker MD, FAC 09/02/19 1037 1351 1351 Jose Shoemaker MD, [facility] /EPI
[2019-09-02 12:00] VITALS: BP 96/52
--- NOTE | 2019-09-02 13:04 | NUR ---
ASSUMED PT CARE AT 0730, PT RESTING IN BED, SATTING LOW 90'S ON 4L AND INCREASED TO 5L, SATTING 94%. PT C/O PAIN TO RT ANKLE, FENTANYL GIVEN. UPON REASSESSMENT OF PAIN, PT WAS FOUND SLEEPING W/ SATS IN THE 80'S, OXYGEN INCREASED TO 6L, PT NOW SATTING MID 90'S. ORTHO SAW PT TODAY, SEE NOTES. PT GOAL IS PAIN MANAGEMENT, TITRATE OXYGEN DOWN AND REMAIN FREE FROM FALLS. AM ASSESSMENT CHARTED, MEDS PER MAR, BED IN LOW POSITION, BED ALARM ON, CALL LIGHT W/IN REACH, HOURLY ROUNDING OBSERVED, WILL CONTINUE POC.
[2019-09-02 16:00] VITALS: BP 83/59
--- NOTE | 2019-09-02 18:22 | NUR ---
NO ACUTE CHANGES THROUGHOUT SHIFT. PT TITRATED BACK DOWN TO 4L, SATTING MID 90'S. PT CONTINUED TO C/O PAIN TO RT ANKLE THROUGHOUT SHIFT, PRN FENTANYL GIVEN W/ PARTIAL RELIEF. PT NPO AFTER MIDNIGHT FOR POSSIBLE RT HEMIARTHROPLASTY IN AM. PT REFUSES Q2H TURNS, HOURLY ROUNDING OBSERVED, BED IN LOW POSITION, BED ALARM ON, MEDS PER JUN, CALL LIGHT W/IN REACH, WILL CONTINUE POC.
[2019-09-02 20:20] VITALS: BP 99/62
[2019-09-03] VITALS: BP 130/55
[2019-09-03 04:00] VITALS: BP 112/61
[2019-09-03 07:25] LABS: HEMOGLOBIN 9.4 gm/dL (12.0-15.0)
[2019-09-03 08:00] VITALS: BP 91/52
--- NOTE | 2019-09-03 08:33 | NUR ---
PT CARE ASSUMED AT 1930. SAT DROPPED, O2 TITRATED TO PT NEEDS. ALERT AND ORIENTED X4. C/O PAIN, MEDICATION GIVEN PER EMAR. CALL LIGHT WITHIN REACH AND BED IN LOW POSITON. POOLE IIN PLACE AND DRAINING. CALL LIGHT WITHIN REACH AND BED IN LOW POSITION. HOURLY ROUNDING DONE FOR PT SAFETY.
[2019-09-03 11:34] LABS: BE 4.9 mmol/L (-2 to +3); PO2 89.9 mmHg (75.0-100.0); pH 7.328 (7.340-7.450)
[2019-09-03 11:41] LABS: PCO2 63.1 mmHg (35.0-45.0)
--- NOTE | 2019-09-03 11:49 | NUR ---
UPON INITIAL ASSESSMENT, PT FOUND WITH CPAP ON WITHOUT O2 TUBING CONNECTED. PT O2 SAT AT THAT TIME WAS 60. O2 TUBING APPLIED BRINGING PT UP TO 92%. SPOKE WITH RT WHO THEN PLACED PT ON 5L NC. ON NEXT ROUNDING PT FOUND WITHOUT NC IN PLACE. O2 REAPPLIED AT 5L NC AND PT O2 SAT COULD NOT GET ABOVE 70'S. O2 INCREASED TO 8L NC AND PHYSICIAN NOTIFIED. PHYSICIAN ORDERED ABG AND DISCONTINUED IV PAIN MEDICATION. LAB CALLED WITH CRITICALS AND PHYSICIAN IMMEDIATELY NOTIFIED OF PCO2 OF 63.1.WCTM CLOSELY
[2019-09-03 12:00] VITALS: BP 96/53
--- NOTE | 2019-09-03 15:00 | NUR ---
PT TAKEN TO SURGERY AT THIS TIME
--- NOTE | 2019-09-03 15:32 | NUR ---
CM spoke with Pt's dtr via phone. Pt resides at home with 2 of her dtrs. Pt is independent with ADLs, dtrs complete IADLs, dtrs available to assist as needed. Dtrs do have to assist Pt into the shower. Pt has a shower chair, walker, cane and wc at home. Pt wears home o2 continuous at 3L and has a cpap, both provided through [employer]. [facility]. Hx of skilled at [place]. Pt is currently on 8L of o2. Per , Pt will need either skilled or acute rehab. Therapy evals pending. Dtr is unsure if Pt can tolerate 3 hours/day of therapy, if Pt does need skilled, preference would be either [facility] or [facility]. JESUS spoke with Rochelle at [facility], they continue to not be accepting new admissions. Pt to have surgery today. CM to fax referral to [facility]. Following.
[2019-09-03 22:30] VITALS: BP 120/68
[2019-09-04] VITALS: BP 155/77
[2019-09-04 01:49] LABS: PO2 VENOUS 41.2 mmHg (35.0-45.0)
[2019-09-04 01:50] LABS: BE 6.2 mmol/L (-2 to +3)
[2019-09-04 01:52] LABS: HEMOGLOBIN 9.4 gm/dL (12.0-15.0); MCH 29.6 pg (26.0-34.0); MCHC 32.4 g/dL (28.0-37.0); MCV 91.6 fL (80.0-100.0); MPV 8.1 fl. (7.2-11.1); NUCLEATED RBCS 0 /100WBC; PLATELET COUNT* 223 thou/uL (150-400); RBC 3.17 mil/uL (4.20-5.00); RDW-CV 15.8 % (10.5-14.5); WBC 12.4 thou/uL (4.0-11.0)
[2019-09-04 02:00] LABS: ALBUMIN 2.2 g/dL (3.4-5.0); CALCIUM 7.6 mg/dL (8.5-10.1); CREATININE 1.1 mg/dL (0.6-1.3); POTASSIUM 4.1 mmol/L (3.5-5.1); TOTAL BILIRUBIN 0.4 mg/dL (<0.1-1.0); TOTAL PROTEIN 5.9 g/dL (6.4-8.2)
[2019-09-04 04:00] VITALS: BP 100/53
[2019-09-04 04:18] LABS: ABSOLUTE LYMPHOCYTES 0.4 thou/uL (0.8-5.3); PLATELET ESTIMATE ADEQUATE
[2019-09-04 04:19] LABS: CLUMPED PLTS RARE; LARGE PLATELETS OCCASIONAL
--- NOTE | 2019-09-04 04:57 | NUR ---
PT RECEIVED FROM PACU. ALERT AND ORIENTED X4. SAT MAINTAINED IN O2. C/O PAIN, MEDICATION GIVEN PER EMAR. PT ON CONTINUOS PULSE OXIMETRY. ABDUCTOR PILLOW IN PLACE. ICE PACK APPLIED. DRESSING C/D/I. CALL LIGHT WITHIN REACH AND BED IN LOW POSITION. HOURLY ROUNDING DONE FOR PT SAFETY.
[2019-09-04 08:00] VITALS: BP 114/67
[2019-09-04 15:29] VITALS: BP 96/51
[2019-09-04 16:04] VITALS: BP 100/60
[2019-09-04 20:00] VITALS: BP 96/60
[2019-09-05 00:05] VITALS: BP 108/63
--- NOTE | 2019-09-05 03:08 | NUR ---
PT ALERT ORIENTED. TURNING Q 2 HRS. REFUSING AT TIMES. RIGHT HIP WOUND VAC INTACT. R BRYANNA ERNST WRAPED WITH IMMOBILIZER. NORCO REQUIRED Q 4 HRS. POOLE WITH YELLOW. 1/2 NS AT 75MLS/HR. WCTM
[2019-09-05 04:00] VITALS: BP 102/63
[2019-09-05 04:43] LABS: ABSOLUTE LYMPHOCYTES 0.5 thou/uL (0.8-5.3); ABSOLUTE MONOCYTES 0.6 thou/uL (0.0-1.2); ABSOLUTE NEUTROPHILS 9.7 thou/uL (1.6-8.1); BASOPHILS 0.1 %; HEMATOCRIT 24.4 % (37.0-47.0); LYMPHOCYTES 4.4 %; MCH 30.3 pg (26.0-34.0); MCHC 32.9 g/dL (28.0-37.0); MONOCYTES 5.2 %; MPV 8.4 fl. (7.2-11.1); NUCLEATED RBCS 0 /100WBC; PLATELET COUNT* 207 thou/uL (150-400); POLYS 90.3 %; RBC 2.65 mil/uL (4.20-5.00); RDW-CV 16.5 % (10.5-14.5); WBC 10.7 thou/uL (4.0-11.0)
[2019-09-05 05:05] LABS: CALCIUM 7.4 mg/dL (8.5-10.1); POTASSIUM 4.1 mmol/L (3.5-5.1); TOTAL BILIRUBIN 0.2 mg/dL (<0.1-1.0); TOTAL PROTEIN 5.4 g/dL (6.4-8.2)
[2019-09-05 08:00] VITALS: BP 103/61
[2019-09-05 12:05] VITALS: BP 87/46
--- NOTE | 2019-09-05 13:08 | NUR ---
Per , Pt will need skilled, CM faxed referrals to [facility] and [facility]. Following.
--- NOTE | 2019-09-05 14:04 | NUR ---
ASSUMED PT CARE AT 0730, PT RESTING IN BED, SATTING 95% ON 3L, TRACING SR W/ A 1D ON THE PHOTOCOMPOSING MACHINE OPERATOR, C/O PAIN TO BACK AND RT LEG. PRN HYDROCODONE GIVEN W/ PARTIAL RELIEF. PT GOAL IS TO WORK W/ PT/OT, TITRATE OXYGEN DOWN, PAIN MANAGEMENT, MAINTAIN MAP OF 66 AND DC PLANNING TO A INTERMEDIATE FACILITY. AM ASSESSMENT CHARTED, BED IN LOW POSITION, BED ALARM ON, CALL LIGHT W/IN REACH, MEDS PER JUN, HOURLY ROUDING OBSERVED, WILL CONTINUE POC.
[2019-09-05 17:23] VITALS: BP 96/46
--- NOTE | 2019-09-05 19:05 | NUR ---
NO ACUTE CHANGES THROUGHOUT SHIFT, PT CONTINUES TO SAT MID 90'S ON 3L AND TRACE SR ON THE SALVAGE DIVER. PT CONTINUED TO HAVE C/O PAIN TO BACK AND RT LEG, PRN PAIN MEDS GIVEN PER JUN. PT WORKED W/ PT TODAY TO SIT UP TO SIDE OF BED. MEDS PER MAR, BED IN LOW POSITION, BED ALARM ON, CALL LIGHT W/IN REACH, HOURLY ROUNDING OBSERVED, WILL CONTINUE POC.
[2019-09-05 20:00] VITALS: BP 98/54
[2019-09-06] VITALS (7 sets, daily range): BP systolic 80–108; BP diastolic 42–57
--- NOTE | 2019-09-06 04:09 | NUR ---
INITAL ASSESSMENT PT ALERT ORIENTED X 4. R LEG ERNST WRAPPED WITH ABDUCTOR PILLOW. R HIP WITH WOUND VAC. ICE TO R ANKLE OFF AND ON THROUGH OUT THE SHIFT. NORCO 2 Q 4 HRS GIVEN. BACLOFEN HS TO HELP WITH MUSCLE SPASMS. BENADRYL FOR ITCHING. TRAZODONE SCHEDULED. PT REQUESTED CLONAZEPAM FOR SLEEP. THE ORDER READ CLONAZEPAM 0.5MG PO DAILY AT 0900. PT TEACHING RE CLONAZEPAM FOR ANXIETY AND NOT SLEEP. PT CALLING OUT FREQUENTLY REQUESTING CLONAZEPAM. PT SAYING I DON'T SEE WHAT THE BIG DEAL IS. PT EDUCATION ON NARCOTICS AND FOLLOWING DRS ORDERS FOR USE. TURNING PT Q 2 HRS. TELEMETRY SHOWS SR. POOLE FOR IMMOBILIZATION DRAINING CLEAR YELLOW. LOZENGES REQUESTED AT START OF SHIFT. OBTAINED FOR PATIENT. [facility]
[2019-09-06 04:47] LABS: HEMATOCRIT 23.5 % (37.0-47.0); HEMOGLOBIN 7.7 gm/dL (12.0-15.0)
--- NOTE | 2019-09-06 13:20 | NUR ---
Pt not medically stable to dc today to [facility], but will likely be ready over the weekend. Updated Dtr. Pt has her Cpap in the room and will take it with her to [place], they have insurance auth for a weekend dc. DC orders will need to be faxed to [phone]. Contact [facility] at [phone] to inform that Pt is ready to dc. CM updated dtr, Dot, of probable weekend dc, dtr in agreement with POC. Nurse report number is [phone]. If [facility] cannot arrange dc transportation, arrange through [employer] [phone]
--- NOTE | 2019-09-06 13:43 | NUR ---
ASSUMED PT CARE AT 0730, PT RESTING IN BED, SATTING 95% ON 3L, TRACING SR ON THE CONTRACTOR FIELD HAULING AND C/O PAIN TO HER RT LEG, PRN NORCO GIVEN. PT CONTINUES TO C/O PAIN THROUGHOUT SHIFT W/ PRN NORCO GIVEN PER JUN. PT WORKED W/ PT TODAY AND GOT UP TO CHAIR TO EAT LUNCH. GOAL IS TO TITRATE OXYGEN DOWN, DECREASE PAIN AND INCREASE ACTIVITY. AM ASSESSMENT CHARTED, MEDS PER JUN, BED IN LOW POSITION, BED ALARM ON, CALL LIGHT W/IN REACH, HOURLY ROUNDING OBSERVED, WILL CONTINUE POC.
--- NOTE | 2019-09-06 17:43 | NUR ---
NO ACUTE CHANGES THROUGHOUT SHIFT, PT CONTINUES TO TRACE SR ON THE SENIOR MANUFACTURING SUPERVISOR AND SAT MID 90'S ON 3L. PT CONTINUED TO HAVE C/O PAIN THROUGHOUT SHIFT, PRN NORCO GIVEN W/ NO RELIEF REPORTED, THOUGH PT SLEPT QUITE A BIT THIS AFTERNOON AFTER WORKING W/ PT. MEDS PER JUN, HOURLY ROUNDING OBSERVED, BED IN LOW POSITION, BED ALARM ON, CALL LIGHT W/IN REACH, WILL CONTINUE POC.
--- NOTE | 2019-09-06 20:00 | NUR ---
RECEIVED REPORT AND ASSUMED CARE OF PT, ASSESSMENT COMPLETED. PT NEEDS ENCOURAGEMENT TO DO FOR HERSELF. REFUSING TO REPOSITION. C/O RT ANKLE PAIN, ENCOURAGED TO WIGGLE TOES. SPLINT AND ACEWRAP INTACT TO RT ANKLE. WOUND VAC TO RT HIP. TELEMETRY ON SHOWING SR. WILL CONT TO MONITOR AND ASSIST NEEDED.
[2019-09-07 04:09] VITALS: BP 103/54
[2019-09-07 05:01] LABS: ABSOLUTE EOSINOPHILS 0.1 thou/uL (0.0-0.7); ABSOLUTE LYMPHOCYTES 1.1 thou/uL (0.8-5.3); ABSOLUTE MONOCYTES 0.7 thou/uL (0.0-1.2); ABSOLUTE NEUTROPHILS 3.8 thou/uL (1.6-8.1); BASOPHILS 0.5 %; EOSINOPHILS 1.1 %; HEMATOCRIT 23.4 % (37.0-47.0); HEMOGLOBIN 7.6 gm/dL (12.0-15.0); LYMPHOCYTES 18.9 %; MCH 30.2 pg (26.0-34.0); MCHC 32.5 g/dL (28.0-37.0); MCV 92.7 fL (80.0-100.0); MONOCYTES 11.9 %; MPV 8.2 fl. (7.2-11.1); NUCLEATED RBCS 0 /100WBC; PLATELET COUNT* 203 thou/uL (150-400); POLYS 67.6 %; RBC 2.53 mil/uL (4.20-5.00); RDW-CV 16.4 % (10.5-14.5); WBC 5.7 thou/uL (4.0-11.0)
[2019-09-07 05:20] LABS: CALCIUM 7.1 mg/dL (8.5-10.1); CREATININE 0.9 mg/dL (0.6-1.3); POTASSIUM 4.1 mmol/L (3.5-5.1)
--- NOTE | 2019-09-07 06:08 | NUR ---
SLEPT WELL TONIGHT. REFUSING TO BE REPOSITIONED, EDUCATION GIVEN. NO CHANGE IN ASSESSMENT. TELEMETRY CONT TO SHOW SR. HS GOALS OF REST AND SAFETY ACHIEVED. HOURLY ROUNDING OBSERVED.
[2019-09-07 12:00] VITALS: BP 107/49
[2019-09-07 16:00] VITALS: BP 99/74
--- NOTE | 2019-09-07 18:03 | NUR ---
PT TURNED Q 2 HOURS IN BED AND PLACED ON BED SCHWARTZ SEVERAL TIMES. PT HAD MOD SIZE BM TO DAY. PT WILL DISCAHRGE TO SKIILED NURSING FACILITY SO PER DR. HIRSCH. WILL CONTINUE TO ASSESS.
[2019-09-07 20:00] VITALS: BP 95/58
[2019-09-08 00:14] VITALS: BP 111/61
--- NOTE | 2019-09-08 03:24 | NUR ---
PT ALERT ORIENTED. HYDROCODONE GIVEN HS WITH BENADRYL AND MELATONIN. PT HAD ONE LARGE SOFT BM. DOING BETTER WITH PAIN CONTROL THIS SHIFT. TELEMETRY SHOWS SR. TURNING Q 2 HRS. WOUND VAC ON R HIP. WCTM
[2019-09-08 04:41] VITALS: BP 102/60
--- NOTE | 2019-09-08 07:00 | NUR ---
CHAMGE OF SHIFT, BEDSIDE REPORT GIVEN PATIENT SEEN AT BEDSIDE, IN BED ASLEEP ASSUMED PATIENT CARE
[2019-09-08 08:00] VITALS: BP 109/57
[2019-09-08] MEDS ORDERED: HYDROCODON-ACE1 EAC7 PO (09:03)
[2019-09-08] MEDS ORDERED: LIORESAL 10 MG10 MG PO ×2 (09:03→12:37)
[2019-09-08] MEDS ORDERED: ULTRAM 50MG TAB50 MG PO (09:03)
[2019-09-08] MEDS ORDERED: CLONAZEPAM 0.50.5 M1 PO (09:03)
[2019-09-08] MEDS ORDERED: BISACODYL10 MG RECTAL (12:02)
[2019-09-08] MEDS ORDERED: BISACODYL5 MG PO (12:03)
[2019-09-08] MEDS ORDERED: COLACE100 MG PO (12:09)
[2019-09-08] MEDS ORDERED: FIBERCON625 M1 PO (12:16)
[2019-09-08] MEDS ORDERED: IBUPROFEN 600600 M1 PO (12:24)
[2019-09-08] MEDS ORDERED: LIDODERM1 EACH TRANSDERM (12:28)
[2019-09-08] MEDS ORDERED: MIRALAX17 G1 PO (12:31)
[2019-09-08] MEDS ORDERED: MELATONIN10 M3 PO (12:32)
[2019-09-08] MEDS ORDERED: LOVENOX40 MG/0.4 SUBQ (12:35)
[2019-09-08] MEDS ORDERED: PROTONIX40 M4 PO (12:44)
[2019-09-08] MEDS ORDERED: CEPACOL SORE T1 EAC7 PO (12:47)
[2019-09-08] MEDS ORDERED: VITAJOY DAILY25 MCG PO (13:04)
[2019-09-08] MEDS ORDERED: ACETAMINOPHEN325 M1 PO (13:11)
[2019-09-08 13:13] VITALS: BP 109/57
--- NOTE | 2019-09-08 13:20 | NUR ---
DISCHARGE TO [facility] REMOVED PAERSONAL BELONGINGS RETURNED DISCHARGE INSTRUCTIONS GIVEN AND CHART COPIES SENT PATIENT SENT VIA GOOD CONDTION REPORT GIVEN TO MORALES AT SNF
--- NOTE | 2019-09-09 20:56 | OP ---
[address] [address] OPERATIVE REPORT Name: CORA MALDONADO Room: [address]R.#: [id number] Admission: 09/01/19 Attend Phys: Jeffy Chandler MD Discharge: 09/08/19 Date of : 52 Report #: [id number] THIS REPORT FOR: //name// cc: Maylin Morillo Ahmad W. DO ~ THIS REPORT FOR: //name// CC: Maylin Chandler DATE OF SERVICE: 09/03/2019 PREOPERATIVE DIAGNOSES: 1. 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 2. Right ankle bimalleolar fracture with fracture blisters. 3. Morbid obesity. POSTOPERATIVE DIAGNOSES: 1. 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 2. Right ankle bimalleolar fracture with fracture blisters. 3. Morbid obesity. PROCEDURES: 1. Revision right matti-hip arthroplasty. 2. Right ankle closed reduction and splint application. SURGEON: Jeffy Harvey DO PACKAGE YARNS DRYING MACHINE OPERATOR: Ramses Mayfield DO ANESTHESIA: General. ANTIBIOTICS: Ancef. INTRAVENOUS FLUIDS: 1450 mL lactated Ringer's. ESTIMATED BLOOD LOSS: 300 mL. URINE OUTPUT: 110 mL. COMPLICATIONS: None. SPECIMENS: None. [address] [place] [address] OPERATIVE REPORT Name: CORA MALDONADO Room: [address] IN ..#: [id number] Admission: 09/01/19 Attend Phys: Jeffy Chandler MD Discharge: 09/08/19 Date of : 52 Report #: [id number] DRAINS: None. CONDITION OF PATIENT: Stable to PACU. IMPLANTS: Castrejon [employer] Nephew size 47 mm unipolar head with +8 mm neck adapter. INDICATIONS FOR PROCEDURE: The patient presented to [facility] after a fall with an ankle fracture. Closed reduction was performed. She had what appeared to be a failure of the matti-hip arthroplasty with dissociation of the unipolar component from the trunnion. She felt like this was something worsening since her fall; however, she has had chronic pain ever since her surgery. I went over with her daughter the diagnosis, treatment options, plan of surgery; please see previous notes for details; gave consent to proceed. DESCRIPTION OF PROCEDURE: I marked the right lower extremity in the presence of operative team members. Everyone agreed this was correct. She was taken back to the operative suite where a briefing was performed indicating correct patient, procedure, site, antibiotics, and that implants were present and sterile. All team members agreed. General anesthetic was administered and transferred over to the operating table in the left lateral decubitus position with the right lower extremity being sterilely prepped and draped in standard fashion. Time-out was performed indicating correct patient, procedure, site, antibiotics, and that implants were present and sterile. All team members agreed. We utilized an anterolateral approach, scalpel through the skin, full thickness flaps down to iliotibial band and fascia; significant scar tissue identified, worked through this; incised through this; very adhered down to the gluteus, we found the permanent suture from before; however, there was evidence of nonhealing gluteus and significant HO formation. We worked through that interval. We were able to work through some of the HO carefully and worked through our anterolateral approach to the glute medius and minimus. 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 There was even some erosion of the posterior wall as was evident superiorly. After debulking, we were able to remove the unipolar head. We inspected the femoral stem carefully. There were no obvious signs of loosening of the stem nor any fracture. We therefore engaged a new 47 mm head, -3; however, the -3 left us significantly short and was having instability. We therefore removed that and then engaged the +8 just by judgment. The +8 gave a significantly better tension, better reduction, and leg lengths compared to her other leg as well as stability; taking through full range of motion, it was stable. Breaux taper was fully engaged. We tried to pry off the unipolar head after we engaged the Breaux taper with quite a bit of force and it was not coming off indicating a full engagement. It should be noted that we examined the trunnion carefully along the stem and noted there appeared to be no damage to the mechanism. With the hip reduced with full range of motion and no instability, we then irrigated thoroughly with normal saline, closed our capsule with #1 Vicryl, closed gluteus [address] [address] OPERATIVE REPORT Name: CORA MALDONADO Room: M.232-P DIS IN M.R.#: [id number] Admission: 09/01/19 Attend Phys: Jeffy Chandler MD Discharge: 09/08/19 Date of : 52 Report #: [id number] with through bone sutures back to the trochanter with #5 FiberWire and then oversewn with #1 Vicryl; continued to irrigate thoroughly. We dropped 1 gram of vancomycin powder within the wound. Iliotibial band and fascia were closed with #1 Vicryl and oversewed with Stratafix. Deep fatty layers were closed down to the fascia with 0 Vicryl [id number] running. Subcutaneous and skin were closed with 2-0 Monocryl buried deep and tomasa. Debriefing performed confirming that our procedure at that point was correct and the counts were final. We still had to perform evaluation of the ankle. We applied a sterile Prevena incisional VAC dressing sterilely and it was functioning appropriately. We then carefully took the patient off the table back onto her bed in the supine position and checked leg lengths. She was actually somewhat short compared to her other side; however, the other side was quite lengthened from what we can tell and we were already at +8. We carefully transitioned her back onto the operative table in supine position and took her splint down. She had blisters. Some of these were already ruptured. No signs of infection, breakdown, pressure ulceration, or gross deformity. We brought in C-arm, confirmed our reduction on multiplanar imaging, placed her into a very well-padded and molded plaster splint to get a better hold of reduction. This was able to be performed quite nicely; stable and congruent reduction of joint while the splint hardened. Once fully hardened, she was transferred off the operative table and taken to PACU stable. We performed a full debriefing confirming the procedure, blood loss, and all counts were correct and final. All team members agreed. She was able to be extubated. POSTOPERATIVE COURSE AND EVALUATION: I spoke with her daughter per her wishes; addressed questions she had to stated satisfaction. She is very thankful for my time and efforts. The patient was resting in PACU with stable vital signs, pain controlled, neurovascularly intact, negative Homans sign, dressing functioning appropriately. PACU films showed stable prosthesis with re-engagement of the unipolar head with the trunnion and stable ankle reduction with well-padded splint. She will be nonweightbearing on the right lower extremity; range of motion okay; dressing care instructions given; deep vein thrombosis prophylaxis will be both pharmacological and mechanical until instructed otherwise; Case Management to help with discharge planning; will require surgery at the ankle; however, once fracture blisters are resolved; explained this to them that this can be several weeks. I encouraged nursing, medical staff, patient, and family to call anytime with questions or concerns; should be noted the COVID protocol was followed throughout the entirety of the patient care. <ELECTRONICALLY SIGNED> By: Jeffy Harvey DO 09/09/19 [id number] Harvey DO /nt
== END 2019-09-08 13:50 | DRG 469 ==
LOC: M.ERS 13:43 → M.2W 15:58 → M.TBA-ER 15:58 → M.2W 18:49
PROVIDERS: Internal Medicine Pulmonary Disease; Nurse Practitioner; Nurse Practitioner Family; Orthopaedic Surgery; ADMIT Internal Medicine
PROC: 2W3QX1Z Immobilization of Right Lower Leg using Splint (ICD-10-PCS; principal; 2019-09-03)
PROC: 0SRA0JZ Replacement of Right Hip Joint, Acetabular Surface with Synthetic Substitute, Open Approach (ICD-10-PCS; principal; 2019-09-03)
DX: M80.071A Age-related osteoporosis with current pathological fracture, right ankle and foot, initial encounter for fracture (principal); J96.01 Acute respiratory failure with hypoxia; T84.020A Dislocation of internal right hip prosthesis, initial encounter; J96.11 Chronic respiratory failure with hypoxia; R65.10 Systemic inflammatory response syndrome (SIRS) of non-infectious origin without acute organ dysfunction; Z68.41 Body mass index [BMI] 40.0-44.9, adult; J44.1 Chronic obstructive pulmonary disease with (acute) exacerbation; D62 Acute posthemorrhagic anemia; G89.29 Other chronic pain; G20 Parkinson's disease; E03.9 Hypothyroidism, unspecified; M19.90 Unspecified osteoarthritis, unspecified site; Z96.642 Presence of left artificial hip joint; I87.8 Other specified disorders of veins; G47.33 Obstructive sleep apnea (adult) (pediatric); F41.1 Generalized anxiety disorder; K21.9 Gastro-esophageal reflux disease without esophagitis; N18.3 Chronic kidney disease, stage 3 (moderate); E66.01 Morbid (severe) obesity due to excess calories; I48.91 Unspecified atrial fibrillation; K59.00 Constipation, unspecified; F02.80 Dementia in other diseases classified elsewhere, unspecified severity, without behavioral disturbance, psychotic disturbance, mood disturbance, and anxiety; Z85.71 Personal history of Hodgkin lymphoma; Z79.82 Long term (current) use of aspirin; Z79.899 Other long term (current) drug therapy; Z99.81 Dependence on supplemental oxygen; Z88.1 Allergy status to other antibiotic agents; Z87.891 Personal history of nicotine dependence; Y93.89 Activity, other specified; Y92.89 Other specified places as the place of occurrence of the external cause; Y99.8 Other external cause status

== ENCOUNTER → 2019-09-17 | Day surgery (SDC) | payer OTHER, MEDICAID ==
[~2019-09-17] MED LIST changes: +ACETAMINOPHEN325 M1 PO; +BISACODYL10 MG RECTAL; +BISACODYL5 MG PO; +CEPACOL SORE T1 EAC7 PO; +FIBERCON625 M1 PO; +LIDODERM1 EACH TRANSDERM; +LOVENOX40 MG/0.4 SUBQ; +MELATONIN10 M3 PO; +MIRALAX17 G1 PO; +ULTRAM 50MG TAB50 MG PO; +VITAJOY DAILY25 MCG PO
[2019-09-17 11:33] LABS: HEMATOCRIT 26.1 % (37.0-47.0); HEMOGLOBIN 8.6 gm/dL (12.0-15.0); MCH 30.5 pg (26.0-34.0); MCHC 32.9 g/dL (28.0-37.0); MCV 92.8 fL (80.0-100.0); MPV 7.9 fl. (7.2-11.1); RBC 2.81 mil/uL (4.20-5.00); RDW-CV 17.6 % (10.5-14.5); WBC 10.2 thou/uL (4.0-11.0)
[2019-09-17 11:39] LABS: CALCIUM 8.2 mg/dL (8.5-10.1); CREATININE 0.9 mg/dL (0.6-1.3); POTASSIUM 4.4 mmol/L (3.5-5.1)
--- NOTE | 2019-09-18 22:00 | OP ---
[address] [address] OPERATIVE REPORT Name: CORA MALDONADO Room: [facility].#: [id number] Admission: 09/17/19 Attend Phys: Jeffy Harvey DO Discharge: Date of : 52 Report #: [id number] THIS REPORT FOR: //name// cc: Maylin Morillo Ahmad W. DO ~ THIS REPORT FOR: //name// CC: Maylin Harvey PREOPERATIVE DIAGNOSIS: Right trimalleolar ankle fracture, closed. POSTOPERATIVE DIAGNOSIS: Right trimalleolar ankle fracture, closed. PROCEDURE: Closed reduction, right ankle and short leg plaster splint application. SURGEON: Jeffy Harvey DO FLASH RANGING CREWMEMBER: Kalia Blanton DO ANESTHESIA: Local MAC. ANTIBIOTICS: None. BLOOD LOSS: None. FLUIDS: 400 mL lactated Ringer's. COMPLICATIONS: None. SPECIMENS: None. DRAINS: None. CONDITION OF PATIENT: Stable to PACU. INDICATIONS FOR PROCEDURE: The patient brought from her facility to [facility] for her ankle, splint was taken down in the preoperative area. Blistering had not resolved, nor was there any wrinkling of the skin edges, but there was no necrosis or skin breakdown or any evidence of deformity of the ankle. It should be noted that she was originally scheduled to come to my office for a prior examination; however, she had COVID testing done at her facility due to a suspected pneumonia, therefore, coming direct to the hospital, was deemed to be the best appropriate treatment. I spoke with her daughter who is power of real estate associate attorney. We went over the fact that the skin is not ready yet. External fixation would not be a good option due to pin site care and the high [facility] [address] [place] [address] OPERATIVE REPORT Name: CORA MALDONADO Room: [facility]#: [id number] Admission: 09/17/19 Attend Phys: Jeffy Harvey DO Discharge: Date of : 52 Report #: [id number] likelihood of complications associated with external fixation to the fact that her ankle has remained stable within the splint. I believe it is a good sign and she should be able to be placed back into a well-padded and molded splint for another week to try to let the skin resolved and get to the point that we can perform fixation. We talked about other risks. Given all pressure breakdown from the splint, loss of reduction and instability that could even lead to necrosis from pressure of the bone on the skin and that could even ultimately lead to an amputation. Continued risks of prolonged immobilization would involve a DVT, PE, , stroke, MS, other related imponderables as well. She gave consent to proceed and agreed with the plan. DESCRIPTION OF PROCEDURE: I marked the right lower extremity in the presence of operative team members, everyone agreed. She was taken back to the operative suite. Local MAC anesthesia performed. Timeout was performed indicating correct patient, procedure, site, all team members agreed. At that point in time, we only took down her splint, fully examined the skin. No evidence of breakdown or ulceration, just remaining blisters and no wrinkling yet in areas of potential incisions. We cleaned off the area. Placed Xeroform, soft roll, brought in our x-ray machine to make sure that our reduction was stable and it was with the talus centered over the tibia. Posterior and Stirrup plaster and that reduction in place, though this was hardened. After the splint had hardened, final flat plate images showed stable ankle joint well reduced on AP and lateral images. It should be noted that on her right hip, she had surgery on that at her last visit, we checked her incisions. The tomasa are in place. There is no evidence of infection or dehiscence. No drainage. Flat plate AP image was obtained showing a stable hip prosthesis with no dissociation from the trunion. No evidence of new fracture or other pathologic process. At that point in time, she was taken to PACU in stable condition. POSTOPERATIVE COURSE AND EVALUATION: I made attempts to call her daughter. For some reason, the call was not going through postoperatively, I left voicemail and I will attempt to reach back out to her. She is stable to be discharged back to the facility. We had spoken at length with the nursing farm management supervisor in the hospital as well as administration and the chief of medical service and it was felt that adequate care could be provided at her facility and she would have less risk to COVID exposure at her facility as there have been no reported cases nor any positive cases at that facility and she will get appropriate postoperative care. Therefore was discharged back to home. DVT prophylaxis will be both pharmacological and mechanical as directed. Nonweightbearing. Maintain the splint clean, dry and intact. Keep pressure of the heel. We will be calling with an anticipated plan to bringing her back next week for again a reevaluation due to the patient's comorbidities, coming from the facility, most likely will continue with this plan and doing in a splint change without any sedation occur, medical [place] [address] OPERATIVE REPORT Name: CORA MALDONADO Room: [facility]#: [id number] Admission: 09/17/19 Attend Phys: Jeffy Harvey DO Discharge: Date of : 52 Report #: [id number] difficult, so even if a splint change does look as necessary at the next visit, then it will be most likely done in the current setting. <ELECTRONICALLY SIGNED> By: Jeffy Harvey DO 09/18/190 1211 [id number] Harvey DO /nt
== END | disposition home or self-care (01) ==
LOC: M.SUR 07:51
PROVIDERS: Orthopaedic Surgery
DX: S82.854A Nondisplaced trimalleolar fracture of right lower leg, initial encounter for closed fracture (principal); M25.571 Pain in right ankle and joints of right foot; N18.3 Chronic kidney disease, stage 3 (moderate); J44.9 Chronic obstructive pulmonary disease, unspecified; K21.9 Gastro-esophageal reflux disease without esophagitis; E05.80 Other thyrotoxicosis without thyrotoxic crisis or storm; I48.91 Unspecified atrial fibrillation; F41.1 Generalized anxiety disorder; Z98.890 Other specified postprocedural states; Z79.899 Other long term (current) drug therapy; Z96.642 Presence of left artificial hip joint; Z85.72 Personal history of non-Hodgkin lymphomas

== ENCOUNTER → 2019-09-24 | Day surgery (SDC) | payer OTHER, MEDICAID ==
[~2019-09-24] MED LIST changes: +NORCO 5-325 TA1 EAC1 PO
--- NOTE | 2019-09-25 16:49 | OP ---
[address] [address] OPERATIVE REPORT Name: CORA MALDONADO Room: [facility].#: [id number] Admission: 09/24/19 Attend Phys: Jeffy Harvey DO Discharge: Date of : 52 Report #: [id number] THIS REPORT FOR: //name// cc: Maylin Morillo Ahmad W. DO ~ THIS REPORT FOR: //name// CC: Maylin Harvey DATE OF SERVICE: 09/24/2019 PREOPERATIVE DIAGNOSIS: Osteoporotic right bimalleolar fracture/subluxation of the ankle. POSTOPERATIVE DIAGNOSIS: Osteoporotic right bimalleolar fracture/subluxation of the ankle with severe osteoporosis. SURGERY PERFORMED: Open reduction and internal fixation of the right ankle medial and lateral sides with Santa fixation and syndesmotic screw fixation. SURGEON: Javier Ferguson DO ARMORED CAR MESSENGER: Dr. Carrington ANESTHESIA: General anesthetic. ANTIBIOTICS: The patient received Ancef 2 g IV piggyback preoperatively. SPECIMENS: She has no specimens. COMPLICATIONS: None. DRAINS: None. ESTIMATED BLOOD LOSS: 100 mL. GROSS FINDINGS: Prior to Surgery, Dr. Harvey, my partner, has been treating and seeing this patient, but she had significant skin issues with edema blisters secondary to the fracture/subluxation dislocation history and appropriately at this time, the skin was evaluated preoperatively, demonstrated already resolved blisters. Skin was healthy otherwise with no breakdown areas noted anywhere on the lower leg. Internal fixation demonstrated satisfactory reduction, although the severe osteoporosis was noted to be present throughout the entire case and fixation as best could be was accomplished at this stage, where there is definitive [place] [id number] OPERATIVE REPORT Name: CORA MALDONADO Room: [facility].#: [id number] Admission: 09/24/19 Attend Phys: Jeffy Harvey DO Discharge: Date of : 52 Report #: [id number] SURGERY IN DETAIL: The patient was taken to the operating room, while in the bed given a general anesthetic and slid over onto the fracture table, had a well-padded tourniquet placed high on the right lower leg. The patient underwent a Hibiclens scrub, chlorhexidine prep, and sterile draping for right leg surgery. Surgery began with a timeout called and verified by everyone in the room for the right leg. Initially, we started the incision laterally with a 15 blade scalpel through skin and subcutaneous tissues over the tip of the fibula extending proximally, but did eventually had Esmarch the extremity, inflated the tourniquet to 250 mmHg. The longitudinal incision was carried proximally. The fibula was exposed and the fracture was identified. At this time, I elected to try an attempt to do a lag screw fixation just where the fibula set. As I tried to pull and distend her, she would easily broke into further pieces. At this point in time, a 3.5 mm cortical lag screw was easily placed and then I did a locking plate and securely fixated initially distally and then proximally. I fixated it with small cortical screws and the syndesmotic screws varying wherever I think I could get good purchase. She did have a severely externally rotated leg from Carnation class 4 fixation of the hip, so she could not rotate this leg hardly at all. We had to airplane the table to even get any anterior placement of the screw into the tibia, which we actually did on 2 good screws. At this point in time, we did go ahead and also then made a medial incision over the malleolar fracture, freed it up and then put 2 additional stabilized K-wires in place. It looked like a good reduction there and put 2 cannulated screw fixations over that medial malleolar fracture, demonstrated near anatomic reduction on that side. K-wires were then removed. We copiously irrigated both sides. The medial side was closed with 2-0 Monocryl in inverted fashion, 2-0 nylon in [id number] fashion. Subcutaneous tissues on the deep side were closed with 1-0 Vicryl, 2-0 Monocryl superficially and a Prolene to close the skin on the most lateral side secondary to better fixation with Prolene. Surgery continued Xeroform dressings followed by 4 x 4, 2 Kerlix, 3 soft rolls, and 3 fiberglass padding. We well-padded the entire foot and the ankle complex region, bivalve the cast was secured in place with Cal wrap. Transferred off the table, taken to recovery in stable condition. I attest I was present for all critical aspects of surgery. Needle, instrument, sponge counts correct. <ELECTRONICALLY SIGNED> By: Javier Ferguson DO 09/25/19 1649 1718 1808Javier Ferguson DO /nt
== END | disposition home or self-care (01) ==
LOC: M.SUR 09:45
DX: M80.071A Age-related osteoporosis with current pathological fracture, right ankle and foot, initial encounter for fracture (principal); I48.91 Unspecified atrial fibrillation; F32.9 Major depressive disorder, single episode, unspecified; F41.9 Anxiety disorder, unspecified; G47.33 Obstructive sleep apnea (adult) (pediatric); E03.9 Hypothyroidism, unspecified; K21.9 Gastro-esophageal reflux disease without esophagitis; Z98.890 Other specified postprocedural states; Z79.899 Other long term (current) drug therapy; Z79.01 Long term (current) use of anticoagulants; Z88.8 Allergy status to other drugs, medicaments and biological substances

== ENCOUNTER 2019-10-09 05:00 | Inpatient (IN) | payer OTHER, MEDICAID ==
[~2019-10-09] VITALS: Ht 175.3 cm; Wt 120.7 kg
[2019-10-09] VITALS (17 sets, daily range): BP systolic 87–172; BP diastolic 45–111
[~2019-10-09 05:00] MED LIST changes: -GABAPENTIN 100100 MG PO; +NEURONTIN 400M400 M2 PO; -ONDANSETRON ODT4 MG PO
[2019-10-09] MEDS ORDERED: ASPERCREME1 EACH TOP (05:34)
[2019-10-09] MEDS ORDERED: MUCINEX600 MG PO (05:35)
[2019-10-09] MEDS ORDERED: ZOLOFT50 M1 PO (05:35)
[2019-10-09] MEDS ORDERED: TRAMADOL 50 MG50 MG PO (05:36)
[2019-10-09] MEDS ORDERED: BREO ELLIPTA 11 EACH PO (05:36)
[2019-10-09] MEDS ORDERED: OMEPRAZOLE40 MG PO (05:36)
[2019-10-09] MEDS ORDERED: OXYCONTIN15 MG PO (05:37)
[2019-10-09] MEDS ORDERED: LAXATIVE5 M1 PO (05:38)
[2019-10-09] MEDS ORDERED: PROAIR DIGIHAL90 MCG INH (05:38)
[2019-10-09] MEDS ORDERED: SINEMET 25-1001 EAC1 PO (05:39)
[2019-10-09] MEDS ORDERED: MILK OF MA400 MG/5 M PO (05:39)
[2019-10-09 05:45] LABS: ABSOLUTE BASOPHILS 0.1 thou/uL (0.0-0.2); ABSOLUTE MONOCYTES 0.6 thou/uL (0.0-1.2); ABSOLUTE NEUTROPHILS 8.3 thou/uL (1.6-8.1); BASOPHILS 0.5 %; EOSINOPHILS 0.3 %; HEMATOCRIT 36.3 % (37.0-47.0); HEMOGLOBIN 11.3 gm/dL (12.0-15.0); MCH 28.3 pg (26.0-34.0); MCHC 31.2 g/dL (28.0-37.0); MCV 90.9 fL (80.0-100.0); MONOCYTES 5.5 %; MPV 8.4 fl. (7.2-11.1); NUCLEATED RBCS 0 /100WBC; PLATELET COUNT* 348 thou/uL (150-400); POLYS 83.7 %; RBC 3.99 mil/uL (4.20-5.00); RDW-CV 16.9 % (10.5-14.5)
[2019-10-09 05:55] LABS: CALCIUM 8.4 mg/dL (8.5-10.1); POTASSIUM 4.2 mmol/L (3.5-5.1)
[2019-10-09 06:04] LABS: PROTIME 10.7 Seconds (9.20-11.50)
[2019-10-09 06:05] LABS: ALBUMIN 3.1 g/dL (3.4-5.0); MAGNESIUM 1.7 mg/dL (1.8-2.4); TOTAL BILIRUBIN 0.4 mg/dL (<0.1-1.0)
[2019-10-09 06:10] LABS: BE 4.8 mmol/L (-2 to +3); PO2 76.3 mmHg (75.0-100.0); pH 7.329 (7.340-7.450)
[2019-10-09 06:12] LABS: PCO2 62.6 mmHg (35.0-45.0)
[2019-10-09 06:24] LABS: URINE BILIRUBIN NEGATIVE (Negative); URINE BLOOD 3+ (Negative); URINE CLARITY CLEAR; URINE COLOR YELLOW; URINE GLUCOSE-RANDOM NEGATIVE (Negative); URINE KETONES NEGATIVE (Negative); URINE LEUKOCYTES-REFLEX 1+ (Negative); URINE NITRITE-REFLEX NEGATIVE (Negative); URINE PROTEIN NEGATIVE (Negative); URINE SPECIFIC GRAVITY 1.025 (1.005-1.030); URINE UROBILINOGEN 0.2 E.U./dl (0.2-1.0)
[2019-10-09 06:36] LABS: SQUAMOUS 0-3 Few /LPF (0-3); URINE WBC-REFLEX 0-5 Rare /HPF (0-5)
[2019-10-09 06:37] LABS: CASTS None Seen /LPF (None Seen); CRYSTALS None Seen /LPF (None Seen); MUCUS 0-3 Light strn/LPF (None Seen)
--- NOTE | 2019-10-09 07:48 | NUR ---
PT PLACED ON BIPAP
--- NOTE | 2019-10-09 08:42 | NUR ---
ASSESSMENT CHARTED. VSS. NO COMPLAINTS OF CHEST PAIN THIS MORNING. REPORT GIVEN TO TELE NURSE.
[2019-10-09] MEDS ORDERED: BACLOFEN 10MG T10 MG PO (10:39)
[2019-10-09] MEDS ORDERED: DIVALPROEX SOD250 M1 PO (10:40)
[2019-10-09] MEDS ORDERED: NORCO 5-325 TA1 EAC1 PO (10:41)
[2019-10-09] MEDS ORDERED: IBU600 MG PO (10:42)
[2019-10-09] MEDS ORDERED: CLONAZEPAM 0.50.5 M1 PO (10:42)
[2019-10-09] MEDS ORDERED: TRAZODONE HCL50 MG PO (10:46)
[2019-10-09] MEDS ORDERED: VITAMIN D325 MC1 PO (10:46)
[2019-10-09] MEDS ORDERED: TRAMADOL HCL E100 MG PO (10:47)
[2019-10-09 11:42] LABS: BE 1.1 mmol/L (-2 to +3); PCO2 41.4 mmHg (35.0-45.0); PO2 100.4 mmHg (75.0-100.0); pH 7.413 (7.340-7.450)
[2019-10-09 12:38] LABS: AMP/METHAMP Negative (Negative); BARBITURATES Negative (Negative); BENZODIAZEPINES Negative (Negative); COCAINE Negative (Negative); METHADONE Negative (Negative); OPIATES POSITIVE (Negative); PCP Negative (Negative); THC Negative (Negative)
[2019-10-09 13:48] LABS: CALCIUM 8.3 mg/dL (8.5-10.1); POTASSIUM 3.5 mmol/L (3.5-5.1)
--- NOTE | 2019-10-09 15:12 | NUR ---
RIGHT BASILIC VESSEL ACCESSED FOR TRIPLE LUMEN 5 MALAY POWER PICC. LINE PRE-TRIMMED TO 42 CM AND ADVANCED TO THE ZERO CORY WITH NO RESISTANCE MET. UPPER ARM CIRCUMFERENCE ABOVE INSERTION SITE= 11 1/2". SHERLOCK MAGNET AND 3CG CONFIRMATION OF TIP TERMINATION AT THE CAVOATRIAL JUNCTION APPRECIATED. GUIDEWIRE REMOVED, LINE FLUSED AND INSERTION SITE DRESSED. REPORT GIVEN TO LUISANA DELGADO.
--- NOTE | 2019-10-09 17:05 | EKG ---
[place] [address] ELECTROCARDIOGRAM REPORT Name: CORA MALDONADO Room: [address] ADM IN M.R.#: [id number] Admission: 10/09/19 Attend Phys: Arnaud vidal Sa Discharge: Date of : 52 Date of Service: 10/09/19 0607 Report #: [id number] THIS REPORT FOR: //name// [facility] ED Test Date: 2019-10-09 Test Time: 06:07:55 Pat Name: CORA MALDONADO Department: Room: [facility] Gender: F Medical Office Manager: HAZEL : 1950 Requested By: Gisele Jewell Order Number: [id number] MD: Bob Jones Measurements Intervals [place] Rate: 88 P: 45 LA: 160 QRS: 89 QRSD: 95 T: -18 QT: 353 QTc: 427 Interpretive Statements Sinus rhythm Borderline right axis deviation Nonspecific repol abnormality, diffuse leads Compared to ECG 09/01/2019 13:51:21 Early repolarization now present T-wave abnormality no longer present Possible ischemia no longer present Electronically Signed On 10-09-2019 17:04:19 CDT by Bob Jones [email or web address] <ELECTRONICALLY SIGNED> By: Bob Jones MD, [facility] 10/09/19 1704 6 6 Bob Jones MD, [facility] /EPI
--- NOTE | 2019-10-09 17:15 | NUR ---
PATIENT'S DAUGHTER UPDATED REGARDING INTUBATION. SHE AGREES TO INTUBATION.
[2019-10-09 18:25] LABS: CALCIUM 7.2 mg/dL (8.5-10.1); POTASSIUM 3.3 mmol/L (3.5-5.1)
[2019-10-09 19:03] LABS: BE 4.7 mmol/L (-2 to +3); PO2 67.7 mmHg (75.0-100.0); pH 7.394 (7.340-7.450)
[2019-10-09 19:05] LABS: PCO2 51.1 mmHg (35.0-45.0)
--- NOTE | 2019-10-09 20:06 | NUR ---
ASSESSMENT CHARTED. VITAL SIGNS CHARTED. BP SOFT DURING SOME OF THE SHIFT. 500 ML BOLUS GIVEN AND IV FLUIDS CHANGED. POOLE ONLY 150 OUT. PT NON-RESPONSIVE MOST OF THE SHIFT. ORDERS RECEIVED AT 1700 FOR INTUBATION. FAMILY UPDATED. NON-EVENTFUL INTUBATION WITH NO COMPLICATIONS. RESTRAINTS PLACED PATIENT BECAME MORE ALERT AND BEGAN PULLING AT LINES AND BANGING HANDS AGAINST SIDE RAILS. NEW SEDATION ORDERS RECEIVED WITH RASS GOAL OF -2 TO -3. WILL CONTINUE TO MONITOR.
[2019-10-10] VITALS (51 sets, daily range): BP systolic 80–161; BP diastolic 34–81
[2019-10-10 02:07] LABS: GLYCOHEMOGLOBIN (HGB A1C) 5.3 % (4.8-5.6)
--- NOTE | 2019-10-10 04:52 | NUR ---
PT. FI02 DOWN TO 50%. REMAINS ADEQUATELY SEDATED, C/O PAIN X1 THIS SHIFT, FENTANYL INCREASED TO 50MCG/HR. VERSED GTT AT 5MG/HR. BILAT SOFT WRIST RESTRAINTS REMAIN IN PLACE. CHEST XRAY DONE THIS A.M. TURNED Q2H TO MAINTAIN SKIN INTEGRITY. WILL CONTINUE TO MONITOR.
[2019-10-10 05:11] LABS: HEMATOCRIT 29.7 % (37.0-47.0); HEMOGLOBIN 9.4 gm/dL (12.0-15.0); MCH 28.4 pg (26.0-34.0); MCHC 31.6 g/dL (28.0-37.0); MCV 89.8 fL (80.0-100.0); MPV 8.8 fl. (7.2-11.1); NUCLEATED RBCS 0 /100WBC; RBC 3.31 mil/uL (4.20-5.00); RDW-CV 17.3 % (10.5-14.5); WBC 18.7 thou/uL (4.0-11.0)
[2019-10-10 05:20] LABS: PLATELET COUNT* 232 thou/uL (150-400)
[2019-10-10 05:35] LABS: ALBUMIN 2.4 g/dL (3.4-5.0); CALCIUM 7.8 mg/dL (8.5-10.1); CREATININE 1.1 mg/dL (0.6-1.3); MAGNESIUM 2.1 mg/dL (1.8-2.4); POTASSIUM 3.6 mmol/L (3.5-5.1); TOTAL BILIRUBIN 0.5 mg/dL (<0.1-1.0); TOTAL PROTEIN 6.3 g/dL (6.4-8.2)
[2019-10-10 06:05] LABS: ABSOLUTE LYMPHOCYTES 2.2 thou/uL (0.8-5.3); ABSOLUTE MONOCYTES 0.4 thou/uL (0.0-1.2); ABSOLUTE NEUTROPHILS 16.1 thou/uL (1.6-8.1); ANISOCYTOSIS 1+; ATYPICAL LYMPHS 2 %; PLATELET ESTIMATE ADEQUATE
[2019-10-10 08:15] LABS: BE 4.7 mmol/L (-2 to +3); pH 7.413 (7.340-7.450)
[2019-10-10 08:18] LABS: PO2 55.7 mmHg (75.0-100.0)
--- NOTE | 2019-10-10 11:56 | NUR ---
ICU rounds: Pt intubated last evening. Soft pressures. Start tube feeds. Garcia in place. Picc. CM spoke with dtr via phone. Pt was discharged to [place] the end of last month for SNF, SNF discharged Pt to home d/t NWB status. Pt resides at home with her 2 dtrs. Dtrs complete IADLs and assist with ADLs as needed. Pt has been at home, per dtr, Pt wasn't able to do much but they were able to manage her care. Pt is current with [facility]. Pt has o2 through [facility], cpap through [employer]. Pt has a walker, cane and wc at home for mobility. Pt also has a shower chair. Pt's WBS will need to be clarified prior to dc to determine what level of care Pt needs, dtr is ok with Pt returning home with HH if needed at dc, but knows that Pt will need skilled once she is able to bare weight. Following.
--- NOTE | 2019-10-10 12:55 | 2DMMODE ---
[place] [address] 2 D/M-MODE ECHOCARDIOGRAM Name: CORA MALDONADO Room: [address] IN .R.#: [id number] Admission: 10/09/19 Attend Phys: Arnaud vidal Sa Discharge: Date of : 52 Date of Service: 10/10/19 1254 Report #: [id number] THIS REPORT FOR: cc: Maylin Morillo,Baltazar Hutson MD [facility] ~ APPROVED REPORT Study performed: 10/10/2019 11:49:54 EXAM: Comprehensive 2D, Doppler, and color-flow Echocardiogram Patient Location: In-Patient BSA: 2.33 HR: 66 bpm BP: 96/55 mmHg Other Information Study Quality: Fair Technically limited study due to body habitus, inability to position patient. Indications Sepsis 2D Dimensions IVSd: 12.66 (7-11mm) LVOT Diam: 21.21 (18-24mm) LVDd: 44.40 mm PWd: 10.75 (7-11mm) Ascending Ao: 32.58 (22-36mm) LVDs: 33.47 (25-40mm) Aortic Root: 30.05 mm Volumes Left Atrial Volume (Systole) LA ESV Index: 21.70 mL/m2 Aortic Valve AoV Peak Miguel Angel.: 1.31 m/s AO Peak Gr.: 6.84 mmHg LVOT Max P.83 mmHg AO Mean Gr.: 3.61 mmHg LVOT Mean P.54 mmHg LVOT Max V: 1.21 m/s AO V2 VTI: 25.23 cm LVOT Mean V: 0.72 m/s GENIA (VTI): 3.32 cm2 LVOT V1 VTI: 23.70 [place] [address] 2 D/M-MODE ECHOCARDIOGRAM Name: CORA MALDONADO Room: [address] IN .R.#: [id number] Admission: 10/09/19 Attend Phys: Arnaud vidal Sa Discharge: Date of : 52 Date of Service: 10/10/19 1254 Report #: [id number] Mitral Valve E/A Ratio: 0.76 MV Decel. Time: 366.73 ms MV E Max Miguel Angel.: 0.64 m/s MV PHT: 106.35 ms MVA (PHT): 2.07 cm2 TDI E/Lateral E': 7.11 E/Medial E': 8.00 Medial E' Miguel Angel.: 0.08 m/s Lateral E' Miguel Angel.: 0.09 m/s Pulmonary Valve PV Peak Miguel Angel.: 1.14 m/s PV Peak Gr.: 5.21 mmHg Tricuspid Valve RAP Estimate: 20.00 mmHg TR Peak Gr.: 14.05 mmHg RVSP: 34.05 mmHg PA Pressure: 34.05 mmHg Left Ventricle The left ventricle is normal size. There is normal LV segmental wall motion. Mild concentric left ventricular hypertrophy. Left ventricular systolic function is normal. LVEF is 60-65%. Grade I - abnormal relaxation pattern. Right Ventricle Right ventricle is mild to moderately dilated. The right ventricular systolic function is normal. Atria The left atrium size is normal. The right atrium size is normal. Aortic Valve The aortic valve is normal in structure. No aortic regurgitation is present. There is no aortic valvular stenosis. Mitral Valve The mitral valve is normal in structure. There is no mitral valve regurgitation noted. No evidence of mitral valve stenosis. Tricuspid Valve The tricuspid valve is normal in structure. Trace [place] [address] 2 D/M-MODE ECHOCARDIOGRAM Name: KHLOE MALDONADOLEY BEV Room: [address] IN [facility]#: [id number] Admission: 10/09/19 Attend Phys: Arnaud vidal Sa Discharge: Date of : 52 Date of Service: 10/10/19 1254 Report #: [id number] Pulmonic Valve The pulmonary valve is normal in structure. Trace pulmonic regurgitation. Great Vessels The aortic root is normal in size. IVC is dilated. Pericardium There is no pericardial effusion. <Conclusion> The left ventricle is normal size. Mild concentric left ventricular hypertrophy. Left ventricular systolic function is normal. LVEF is 60-65%. Grade I - abnormal relaxation pattern. Right ventricle is mild to moderately dilated. Trace tricuspid regurgitation. IVC is dilated. <ELECTRONICALLY SIGNED> By: Baltazar Kulkarni MD, FACC 10/10/19 1254 1254 1254 Baltazar Kulkarni MD, FACC /INF
[2019-10-10 18:28] LABS: CALCIUM 7.5 mg/dL (8.5-10.1); CREATININE 0.9 mg/dL (0.6-1.3); POTASSIUM 3.7 mmol/L (3.5-5.1)
--- NOTE | 2019-10-10 18:31 | NUR ---
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
[2019-10-11] VITALS (97 sets, daily range): BP systolic 79–146; BP diastolic 36–84
[2019-10-11 04:19] LABS: ABSOLUTE LYMPHOCYTES 0.5 thou/uL (0.8-5.3); ABSOLUTE MONOCYTES 0.5 thou/uL (0.0-1.2); ABSOLUTE NEUTROPHILS 11.5 thou/uL (1.6-8.1); BASOPHILS 0.1 %; HEMATOCRIT 26.2 % (37.0-47.0); HEMOGLOBIN 8.2 gm/dL (12.0-15.0); LYMPHOCYTES 3.9 %; MCHC 31.2 g/dL (28.0-37.0); MCV 89.5 fL (80.0-100.0); MONOCYTES 3.7 %; MPV 8.7 fl. (7.2-11.1); NUCLEATED RBCS 0 /100WBC; PLATELET COUNT* 214 thou/uL (150-400); POLYS 92.3 %; RBC 2.93 mil/uL (4.20-5.00); RDW-CV 17.1 % (10.5-14.5); WBC 12.4 thou/uL (4.0-11.0)
[2019-10-11 04:46] LABS: ALBUMIN 2.6 g/dL (3.4-5.0); CALCIUM 7.6 mg/dL (8.5-10.1); MAGNESIUM 2.1 mg/dL (1.8-2.4); PHOSPHORUS* 2.8 mg/dL (2.5-4.9); TOTAL BILIRUBIN 0.4 mg/dL (<0.1-1.0); TOTAL PROTEIN 6.1 g/dL (6.4-8.2)
--- NOTE | 2019-10-11 07:08 | NUR ---
ASSESSMENTS CHARTED. PATIENT WAS HAVING DIFFICULTY STAYING SEDATED AND RELAXED TO PHYSICIAN'S ORDERS NEAR THE BEGINNING OF THE SHIFT ON CURRENT SEDATION LEVELS. SPOKE WITH DR. DUDLEY AND OBTAINED ORDERS TO INCREASE THE MAX DOSE ON VERSED AND FENTANYL. TITRATING BOTH MEDICATIONS PER ORDERS. PATIENT STILL OCCASIONALLY REQUIRES IV PUSH DOSES TO KEEP RELAXED AND CALM. REMAINS INTUBATED ON VENT. RLE CAST IN PLACE WITH NO SIGNS OF ANY COMPLICATIONS. INCREASED TUBE FEEDING TO 50 ML/HR. URINE OUTPUT SLIGHTLY IMPROVED THIS SHIFT, THOUGH STILL DARK YELLOW AND CLOUDY. VSS FOR MOST OF THE SHIFT. PATIENT WAS HYPOTENSIVE EARLIER IN THE SHIFT AND REQUIRED LEVOPHED TO BE STARTED. PATIENT WAS TAKEN OFF LEVOPHED SHORTLY SHE BECAME HYPERTENSIVE AFTER STARTING ON LOW DOSE OF THE MEDICATION. NO OTHER SIGNIFICANT EVENTS THIS SHIFT. WCTM
[2019-10-11 08:08] LABS: BE 0.9 mmol/L (-2 to +3); PCO2 44.7 mmHg (35.0-45.0); PO2 91.1 mmHg (75.0-100.0); pH 7.385 (7.340-7.450)
--- NOTE | 2019-10-11 13:43 | NUR ---
ICU rounds: Pt intubated and on vent. Per , possible weaning trial today. Tube feeds going well.
[2019-10-11 18:24] LABS: CALCIUM 7.4 mg/dL (8.5-10.1); CREATININE 0.9 mg/dL (0.6-1.3); POTASSIUM 3.7 mmol/L (3.5-5.1)
--- NOTE | 2019-10-11 19:27 | NUR ---
ASSESSMENT CHARTED. VSS THROUGHOUT SHIFT. BP SOFT BUT LEVO NOT RESTARTED. MAPS MAINTAINING ABOVE 65. SEDATION SWITCHED PER PULM. SEE TITRATION RECORD. PATIENT APPEARS TO BE BETTER SEDATED WITH PROPOFOL AND STILL AROUSABLE TO TOUCH/NAME. SUPPOSITORY GIVEN WITH SMALL LIQUID BM. POOLE 1650 OUT. NO OTHER EVENTS THIS SHIFT.
[2019-10-12] VITALS (97 sets, daily range): BP systolic 89–156; BP diastolic 45–105
[2019-10-12 05:58] LABS: ABSOLUTE LYMPHOCYTES 0.5 thou/uL (0.8-5.3); ABSOLUTE MONOCYTES 0.5 thou/uL (0.0-1.2); ABSOLUTE NEUTROPHILS 9.4 thou/uL (1.6-8.1); BASOPHILS 0.2 %; HEMATOCRIT 25.5 % (37.0-47.0); HEMOGLOBIN 8.4 gm/dL (12.0-15.0); LYMPHOCYTES 4.5 %; MCH 29.3 pg (26.0-34.0); MCHC 32.9 g/dL (28.0-37.0); MCV 89.1 fL (80.0-100.0); MONOCYTES 4.8 %; MPV 9.1 fl. (7.2-11.1); NUCLEATED RBCS 0 /100WBC; PLATELET COUNT* 228 thou/uL (150-400); POLYS 90.5 %; RBC 2.86 mil/uL (4.20-5.00); WBC 10.4 thou/uL (4.0-11.0)
[2019-10-12 06:14] LABS: ALBUMIN 2.9 g/dL (3.4-5.0); CALCIUM 7.2 mg/dL (8.5-10.1); MAGNESIUM 2.1 mg/dL (1.8-2.4); PHOSPHORUS* 2.9 mg/dL (2.5-4.9); TOTAL BILIRUBIN 0.4 mg/dL (<0.1-1.0); TOTAL PROTEIN 6.2 g/dL (6.4-8.2)
--- NOTE | 2019-10-12 07:34 | NUR ---
PATIENT REMAINS INTUBATED AND SEDATED ON VENT. VERSED GTT NOW OFF. SEE TITRATION RECORD FOR OTHER DETAILS. TUBE FEEDING STILL IFNUSING AT GOAL AND TOLERATING WELL. OG HAD SLID OUT FARTHER NEAR THE END OF SHIFT. TUBE PLACED BACK AT ORIGNIAL POSITION AND X RAY CONFIRMED PLACEMENT. NO SIGNIFICANT EVENTS THIS SHIFT. VSS. WCTM
--- NOTE | 2019-10-12 18:38 | NUR ---
VENT SUPP CONTD, SAME SETTINGS, NO WEANING TRIAL TODAY. MINIMAL SEDATION WITH FENTANYL AND PROPOFOL, 100 AND 30 RESPECTIVELY. Q2 TURNS AND ORAL CARE GIVEN. TOLERATING TUBE FEEDS, INSULIN PER PROTOCOL. UOP 3050 MLS. DAUGHTER UPDATED.
[2019-10-13] VITALS (80 sets, daily range): BP systolic 90–179; BP diastolic 46–99
[2019-10-13 05:50] LABS: ABSOLUTE LYMPHOCYTES 1.1 thou/uL (0.8-5.3); ABSOLUTE MONOCYTES 0.8 thou/uL (0.0-1.2); ABSOLUTE NEUTROPHILS 8.6 thou/uL (1.6-8.1); BASOPHILS 0.2 %; EOSINOPHILS 0.1 %; HEMATOCRIT 26.1 % (37.0-47.0); HEMOGLOBIN 8.4 gm/dL (12.0-15.0); LYMPHOCYTES 10.4 %; MCH 28.4 pg (26.0-34.0); MCHC 32.3 g/dL (28.0-37.0); MCV 87.9 fL (80.0-100.0); MONOCYTES 7.2 %; MPV 8.3 fl. (7.2-11.1); NUCLEATED RBCS 0 /100WBC; PLATELET COUNT* 200 thou/uL (150-400); POLYS 82.1 %; RBC 2.97 mil/uL (4.20-5.00); RDW-CV 17.1 % (10.5-14.5); WBC 10.4 thou/uL (4.0-11.0)
[2019-10-13 06:01] LABS: ALBUMIN 2.9 g/dL (3.4-5.0); CALCIUM 7.5 mg/dL (8.5-10.1); MAGNESIUM 2.1 mg/dL (1.8-2.4); POTASSIUM 3.3 mmol/L (3.5-5.1); TOTAL BILIRUBIN 0.3 mg/dL (<0.1-1.0)
[2019-10-13 06:15] LABS: PHOSPHORUS* 3.3 mg/dL (2.5-4.9)
[2019-10-13 08:28] LABS: BE 6.5 mmol/L (-2 to +3); pH 7.421 (7.340-7.450)
[2019-10-13 08:30] LABS: PCO2 50.3 mmHg (35.0-45.0); PO2 53.9 mmHg (75.0-100.0)
--- NOTE | 2019-10-13 08:54 | NUR ---
PATIENT REMAINS ON VENTILATOR THROUGHOUT SHIFT. PATIENT WAKING UP EASILY OVER SEDATION AND IS ABLE TO FOLLOW COMMANDS. TUBE FEEDING STILL INFUSING AT GOAL. NO SIGNIFICANT EVENTS THIS SHIFT. VSS
--- NOTE | 2019-10-13 10:54 | NUR ---
RE: pharmacy vancomycin dosing. Dr. Pfeiffer requests trough level check prior to next vancomycin dose. Will order & follow. thank you.
--- NOTE | 2019-10-13 10:56 | NUR ---
PT EXTUBATED AT 1051, EXTUBATION UNEVENTFUL. 02 SUPPORT WTIH NC AT 4L/MIN.
--- NOTE | 2019-10-13 20:12 | NUR ---
PT A&O x4, TOLERATING NC 3L/MIN. PASSED BEDSIDE SWALLOW. VSS. BM x2 TODAY. DAUGHTER UPDATED. ASSISTED WITH Q2 TURNS. PROGRESSING TOWARDS GOALS.
--- NOTE | 2019-10-13 21:46 | CON ---
[address] [address] CONSULTATION Name: CORA MALDONADOAN Room: [address] IN M.R.#: [id number] Admission: 10/09/19 Attend Phys: Arnaud Arroyo Discharge: Date of : 52 Report #: [id number] THIS REPORT FOR: //name// cc: Maylin Morillo Ahmad W. DO ~ THIS REPORT FOR: //name// CC: Maylin Bassett DATE OF SERVICE: 10/09/2019 REQUESTING PHYSICIAN: Consult has been requested by Dr. Valedz. INDICATION FOR CONSULTATION: Acute hypoxemic respiratory failure. HISTORY OF PRESENT ILLNESS: This is a 69-year-old female. Her past medical history is as mentioned below, which includes a history of oxygen-dependent COPD. The patient also does have a history of obstructive sleep apnea. The patient has had a recent surgery on her right leg, both her right hip as well as ankle in this hospital about 2 weeks ago. The patient is reported to also have had COVID-19 testing done last month, which was reported to be negative. The patient is now admitted during the night, presentation is with altered mental status and respiratory distress. The patient is reported to have been found by family having vomited and having coughing fits. The patient is suspected to have had aspiration. The patient also was poorly responsive and was hypoxemic, requiring a 100% nonrebreather mask to maintain O2 saturation initially. The patient is reported to have had a Garcia catheter in place upon arrival in the ICU. I do not have details regarding how long this Garcia catheter was in place. The patient is reported to have had 500 mL of urine output noted at that time. Since then, the Garcia catheter has been changed. The patient currently has only had 15 mL of urine over the last 3 hours despite having had IV fluids. The patient currently is on a BiPAP. She has been requiring around 80% FiO2 to maintain O2 saturation; however, I do see a trend towards improvement in her O2 saturations. The patient is now saturating around 98-99%. The patient initially was reported to be tachypneic and tachycardic as well, both of these do appear to be subsiding now. The patient, however, does appear to be spiking a fever. Temperature is 39.3 at this time and therefore, she has a high-grade fever. Currently, the patient's respiratory rate is down to around 22-23. The patient does, however, remain poorly responsive. In fact, while she was moving extremities spontaneously, she did not have a response to verbal commands to me, but she did respond to pain. The patient initially had significant elevation in blood pressures up to 172 systolic, recorded. The patient's blood pressure has now returned to the normal range. The patient has a peripheral IV access, gauge 20 and another one at gauge 22 [place] [address] CONSULTATION Name: CORA MALDONADO Room: [address] IN M.R.#: [id number] Admission: 10/09/19 Attend Phys: Arnaud Arroyo Discharge: Date of : 52 Report #: [id number] The patient is unable to provide a further history or review of systems. The patient is reported to have had some anticoagulation recently due to recent surgeries. I do see record of prophylactic dose of Lovenox in her records, it is not known to me as to whether the patient also has had oral anticoagulants recently. PAST MEDICAL HISTORY: COPD, on oxygen 3 liters continuous at home; obstructive sleep apnea, on a CPAP, compliance to CPAP is not known at this time; morbid obesity; recent ankle as well as a hip surgery on the right side; previous left hip replacement; chronic back pain; long-term use of narcotics; parkinsonism; hyperthyroidism; osteoarthritis; frequent UTIs; previous history of hip surgery on the right side in 2014 as well; Hodgkin's lymphoma; chronic venous insufficiency. The patient's last available echocardiogram shows a normal left ventricular ejection fraction without elevation in right heart pressures. SOCIAL HISTORY: The patient is reported to have had a history of smoking in the past and she was reported to have discontinued now. I am unable to ask the patient further details. CURRENT MEDICATIONS: The list is in [place], reviewed. HOME MEDICATIONS: The list also in [place], reviewed. Discussion regarding whether the patient may have had anticoagulants recently is as above. ALLERGIES: NEOSPORIN IS MENTIONED AN ALLERGY. PHYSICAL EXAMINATION: GENERAL: The patient is markedly lethargic. She is responding to painful stimuli. She is moving all extremities spontaneously. The patient, however, did not have a response to verbal commands. VITAL SIGNS: She initially had a pulse of 111 and a blood pressure of 172/111. This has settled down to a heart rate of around 100 now with a blood pressure around 120/80 without administration of antihypertensive medications. The patient, however, has spiked a high-grade fever at 39.3 this morning. Her respiratory rate is around 23 or 24. The patient is on a BiPAP of 14/6. With 80% FiO2, she was oxygenating 98-99%. Body mass index is elevated to 39. HEENT: Head is normocephalic and atraumatic. Throat and eye examination is limited to the BiPAP in place. NECK: Does not show raised JVP, asymmetry, mass or lymph nodes. CHEST: Symmetrical expansion on inspection and palpation. On auscultation, breath sounds are bilaterally equal, decreased. I do not hear added sounds. Breath sounds are bilaterally equal. HEART: Regular. There is no murmur. ABDOMEN: Soft and nontender. EXTREMITIES: Lower extremities show minimal edema only. There are changes consistent with chronic venous insufficiency present. [place] [address] CONSULTATION Name: CORA MALDONADO Room: [address] IN ..#: [id number] Admission: 10/09/19 Attend Phys: Arnaud Arroyo Discharge: Date of : 52 Report #: [id number] on the right lower extremity. NEUROLOGICAL: As discussed above. A detailed neurological examination is not possible at this time. LABORATORY DATA: The patient's arterial blood gases consistent with acute hypercarbic and hypoxemic respiratory failure in [facility] reviewed. I did have another arterial blood gas repeated now, this is also reviewed. The patient's CBC as well as chemistries are in [facility] and these are reviewed. Coagulation studies showing a markedly elevated D-dimer in [facility] reviewed. The patient was positive for opiates and does take opiates at home. There are several cultures pending at this time. The patient did have a CTA chest performed this morning. It does show pulmonary infiltrates. There is no pulmonary embolism identified; however, the study is limited for evaluation for a pulmonary embolus. ASSESSMENT AND PLAN: 1. Acute hypoxemic and hypercarbic respiratory failure. The patient is on a BiPAP at this time. She has had a trend towards improvement and therefore, I decided to only watch her on BiPAP for now. I did go ahead and adjust the BiPAP settings. We will be watching her very closely in the ICU. Should she fail to improve, I will have a low threshold of endotracheally intubating her. The patient does have a peripheral access of 20 gauge and another one, which is 22 gauge. She may need the placement of a PICC line for additional IV access. 2. Sepsis with high-grade fever and pulmonary infiltrates/aspiration pneumonia. The patient is reported to have aspirated earlier today. Considering that she has also recently been in the hospital, I fully agree with initially treating her with broad-spectrum antibiotics as is currently ordered. Considering high-grade fever and infiltrates, I also recommend that we proceed with COVID-19 testing. The patient, however, is too unstable to remove BiPAP for the testing at this time. Should she become more stable and able to have the BiPAP off for the testing performed, then I will consider the same. Also, we will consider the same if we endotracheally intubate her. Meanwhile, we will keep her on enhanced precautions as COVID-19 is not ruled out at this time. There are multiple cultures and serologies ordered by the primary service and I agree with the same, we will follow along. 3. Chronic obstructive pulmonary disease exacerbation. The patient is on nebulized bronchodilators, we will continue the same. We will also treat her with Solu-Medrol. 4. Obstructive sleep apnea. She is on a CPAP alf. We do have her on a BiPAP at this time. 5. Low urine output. We will continue with IV fluids. I, in fact, increased the IV fluids. Should the patient not be able to tolerate IV fluids, I will be inclined to endotracheally intubate her. 6. Recent orthopedic surgery/history of chronic back pain. The patient does have a history of narcotic use, also has been using clonazepam at home. [address] [place] [address] CONSULTATION Name: CORA MALDONADO Room: [address] IN [facility]#: [id number] Admission: 10/09/19 Attend Phys: Arnaud vidal [place] Discharge: Date of : 52 Report #: [id number] Considering the patient's altered mental status, I did not restart any narcotics at this time. Should the patient become more awake, I will perhaps be initially inclined to treat her with fentanyl. 7. Chronic venous stasis/evaluation for thromboembolic phenomena. We will also go ahead and do venous Dopplers. 8. History of Parkinson's disease. 9. History of Hodgkin's lymphoma. 10. Past medical history of atrial fibrillation, details not available at this time. The patient is critically ill at this time. Total time spent providing critical care to this patient today exceeds 45 minutes. <ELECTRONICALLY SIGNED> By: Ismael Pfeiffer MD 10/13/19 2146 [id number] [id number] Pfeiffer MD /nt
[2019-10-14] VITALS (7 sets, daily range): BP systolic 104–145; BP diastolic 47–77
[2019-10-14 05:19] LABS: ABSOLUTE LYMPHOCYTES 0.6 thou/uL (0.8-5.3); ABSOLUTE MONOCYTES 0.6 thou/uL (0.0-1.2); ABSOLUTE NEUTROPHILS 6.3 thou/uL (1.6-8.1); BASOPHILS 0.3 %; HEMATOCRIT 26.6 % (37.0-47.0); HEMOGLOBIN 8.5 gm/dL (12.0-15.0); LYMPHOCYTES 8.3 %; MCH 27.7 pg (26.0-34.0); MCHC 31.8 g/dL (28.0-37.0); MCV 87.3 fL (80.0-100.0); MPV 8.6 fl. (7.2-11.1); NUCLEATED RBCS 0 /100WBC; PLATELET COUNT* 211 thou/uL (150-400); POLYS 83.4 %; RBC 3.05 mil/uL (4.20-5.00); RDW-CV 16.8 % (10.5-14.5); WBC 7.6 thou/uL (4.0-11.0)
[2019-10-14 05:33] LABS: ALBUMIN 2.6 g/dL (3.4-5.0); CALCIUM 7.3 mg/dL (8.5-10.1); CREATININE 0.8 mg/dL (0.6-1.3); POTASSIUM 3.6 mmol/L (3.5-5.1); TOTAL BILIRUBIN 0.4 mg/dL (<0.1-1.0); TOTAL PROTEIN 5.5 g/dL (6.4-8.2)
--- NOTE | 2019-10-14 06:57 | NUR ---
ASSUMED CARE OF PT AFTER REPORT AT 1930. PT A&OX4. VSS. PHYSICAL ASSESSMENT COMPLETED AND CHARTED. PT ON O2 AT 3L NC/BIPAP AT HS. PT TRACING SR ON TELE. PT WITH POOLE TO DEPENDENT DRAIN. PT COMPLAINED OF RIGHT ANKLE & BACK PAIN-MED GIVEN PER JUN. PT REFUSED TURNS AT TIMES EVEN AFTER EDUCATION. CALL LIGHT WITHIN REACH.
--- NOTE | 2019-10-14 08:44 | CON ---
[address] [address] CONSULTATION Name: CORA MALDONADOAN Room: [address] IN M.R.#: [id number] Admission: 10/09/19 Attend Phys: Arnaud Arroyo Discharge: Date of : 52 Report #: [id number] THIS REPORT FOR: //name// cc: Maylin Morillo Ahmad W. DO ~ THIS REPORT FOR: //name// CC: Maylin Bassett DATE OF SERVICE: 10/14/2019 INFECTIOUS DISEASE CONSULTATION ATTENDING PHYSICIAN: Dr. Bassett. REASON FOR EVALUATION: Coag negative Staph, septicemia. HISTORY OF PRESENT ILLNESS: Chart reviewed, patient examined. This is a 69-year-old woman with underlying O2 requiring COPD, who was admitted through the Emergency Room on 10/09/2019. She was found to be very weak, suspected aspiration with episode of emesis. Of note, within the last few weeks, had a fall and developed a right ankle fracture. She was confirmed to be hypoxemic. She was progressively encephalopathic, he has required intubation with mechanical ventilatory support. Initial imaging was fairly unremarkable. Subsequently, developed diffuse bilateral interstitial opacities. She has been eventually weaned off support. In the interim, her blood cultures returned positive for Staphylococcus hominis. Did have Apoorva albicans in her sputum culture as well and started on broad-spectrum therapy, which is continued including vancomycin as well as Zosyn and fluconazole. She is mildly encephalopathic. At this point, she is on her baseline 3 liters nasal cannula supplemental oxygen. She denies significant cough. She had some mild nausea and diminished appetite. ALLERGIES: LISTED TO NEOSPORIN COMPONENTS. MEDICATIONS: Include vancomycin, trazodone, ondansetron, fentanyl, methylprednisolone, bisacodyl, furosemide, Zosyn, Sinemet, fluconazole, saccharomyces, pantoprazole, sliding scale insulin, enoxaparin. PAST MEDICAL HISTORY: As described above, O2 requiring COPD, history of atrial fibrillation, chronic pain syndrome including her Parkinson's, hypothyroidism, arthritis, frequent urinary tract infections, anemia, history of Hodgkin's lymphoma in remission, obstructive sleep apnea requiring CPAP, chronic venous stasis insufficiency, obesity, [place] [address] CONSULTATION Name: CORA MALDONADO Room: [address] IN [facility].#: [id number] Admission: 10/09/19 Attend Phys: Arnaud Arroyo Discharge: Date of : 52 Report #: [id number] SOCIAL HISTORY: Nonsmoker, no ethanol, no illicit drug use. FAMILY HISTORY: Noncontributory. REVIEW OF SYSTEMS: Otherwise, did admit to some 20-pound weight loss. Otherwise unremarkable review of systems with exception of the above. PHYSICAL EXAMINATION: GENERAL: She is generally alert, cooperative, in mild encephalopathy, moderate distress. She is undernourished. VITAL SIGNS: Temperature 98.6, pulse 69, respirations 9, blood pressure 104/47. SKIN: Warm, dry. No rashes, HEENT: She has got nasal cannula in place. NECK: Supple. HEENT: Extraocular muscles intact. Normocephalic. LUNGS: Diminished breath sounds overall. Scattered crackles at the bases. HEART: Regular with some ectopy. ABDOMEN: Obese, soft, nontender. EXTREMITIES: She has got an immobilizing dressing over her right ankle. GENITOURINARY AND RECTAL: Deferred. LABORATORY DATA: CBC: White count of 7.6, H and H 8.5 and 26.6, platelets of 211. Electrolytes: Sodium 143, potassium 3.6, chloride 105, bicarbonate is 34, anion gap of 4, BUN and creatinine 20 and 0.8, glucose of 103. LFTs unremarkable. Albumin of 2.6, total protein 5.5. Estimated GFR of 71. ABGs from yesterday, pH 7.421, pCO2 of 50.3, pO2 of 53.9, it was actually on FiO2 of 40% via the ventilator. Chest x-ray, most recently showed medial basilar atelectasis versus infiltrate. ASSESSMENT: Coag negative Staph septicemia. It is not entirely clear. It is only a skin source, unaware if that was what has triggered the sequence of events that led to her respiratory failure, worsening. We will continue with combination therapy at this point, may well not defined in the deep infection. We will monitor expectantly. Continue support. I do not think the Apoorva albicans is a significant pathogen in this setting despite the fact that showed up in a sputum culture. Clinically, he has improved, we would expect approximately 10-14 day course of therapy total. <ELECTRONICALLY SIGNED> By: Carlos Duarte MD 10/14/19 0844 0744 [id number] Duarte MD /nt
--- NOTE | 2019-10-14 13:19 | NUR ---
ICU rounds: Extubated. Tele status. Ortho to confirm weight bearing status. Therapy evals ordered.
--- NOTE | 2019-10-14 13:29 | NUR ---
PT HAS BEEN A/O X4 AND TEARFUL,VSS,MEDICAL HISTORIAN IN PLACE.PT DOWNGRADED TO TELE STATUS.REMAINS ON 3L O2 NC.PAIN MANAGED WELL WITH PO MEDICATIONS.LASIX GIVEN WITH ADEQUATE OUTPUT.MESSAGE LEFT FOR PRIMER PRESS OPERATOR TO FIND OUT WEIGHT BEARING STATUS-NO RESPONSE OF YET.PT REFUSED TO WORK WITH ST.NAUSEA MANAGED WITH MEDICATIONS.PT TO TRANSFER TO ROOM 210.REPORT GIVEN AT BEDSIDE.ALL PERSONAL BELONGINGS PACKED AND TAKEN WITH PT.
--- NOTE | 2019-10-14 19:22 | NUR ---
PT. TRANSFERED FROM ICU ABOUT 1530, REPORT RECEIVED FROM ELIZABETH DELGADO. TRANSPORTED BY BED, PRN MEDS ADMINISTERED FOR PAIN AND NAUSEA, NOW UNDER CONTROL. DISCUSSED SOME MEDS NOT SHOWING UP ACTIVE ON PROFILE, WITH [facility]. PT. ORIENDTED TO ROOM, CALL LIGHT, PHONE AND PERSONAL BELONGINGS PLACED WITHIN REACH. HOURLY ROUNDING PERFORMED.
[2019-10-15] VITALS: BP 127/63
[2019-10-15 04:00] VITALS: BP 127/72
[2019-10-15 05:09] LABS: CALCIUM 7.8 mg/dL (8.5-10.1); CREATININE 0.8 mg/dL (0.6-1.3); MAGNESIUM 2.3 mg/dL (1.8-2.4); POTASSIUM 3.4 mmol/L (3.5-5.1)
[2019-10-15 05:20] LABS: ABSOLUTE LYMPHOCYTES 1.4 thou/uL (0.8-5.3); ABSOLUTE MONOCYTES 0.8 thou/uL (0.0-1.2); ABSOLUTE NEUTROPHILS 5.6 thou/uL (1.6-8.1); BASOPHILS 0.1 %; EOSINOPHILS 0.5 %; HEMATOCRIT 28.5 % (37.0-47.0); HEMOGLOBIN 9.2 gm/dL (12.0-15.0); LYMPHOCYTES 17.5 %; MCH 27.9 pg (26.0-34.0); MCHC 32.4 g/dL (28.0-37.0); MONOCYTES 9.9 %; MPV 8.9 fl. (7.2-11.1); NUCLEATED RBCS 0 /100WBC; PLATELET COUNT* 244 thou/uL (150-400); RBC 3.32 mil/uL (4.20-5.00); WBC 7.8 thou/uL (4.0-11.0)
--- NOTE | 2019-10-15 07:32 | NUR ---
VSS. SEE MAR. SEE CHARTING. HOME CPAP USED. RESTED COMFORTABLY THROUGH NIGHT.
[2019-10-15 08:00] VITALS: BP 144/84
[2019-10-15 12:06] VITALS: BP 119/58
--- NOTE | 2019-10-15 15:21 | NUR ---
LEFT A VOICEMAIL RE: R LE WB STATUS PER DR. HUFF SX 09/[address] KEN SX 09/23.
[2019-10-15 16:13] VITALS: BP 112/60
--- NOTE | 2019-10-15 19:14 | NUR ---
PT. VSS, AOX4, PAIN UNDER CONTROL, ST ON MONITOR. ORTHO CONSULTED, ORDERS RECEIVED. DENIES NAUSEA. BM PER BEDPAIN. IV AND PO POTASSIUM ADMINISTERED FOR K 3.4 WITH LASIX. LAB CALLED TO REPORT GRAM POS COCCI IN 1ST BLOOD CX. dR OBANDO NOTIFIED. NO ORDERS RECEIVED. HOURLY ROUNDING PERFORMED. CALL LIGHT AND PERSONAL BELONGINGS PLACED WITHIN REACH.
[2019-10-15 19:50] VITALS: BP 125/78
[2019-10-16] VITALS: BP 124/61
[2019-10-16 04:00] VITALS: BP 105/57
[2019-10-16 08:00] VITALS: BP 142/70
[2019-10-16 08:25] LABS: ALBUMIN 2.8 g/dL (3.4-5.0); CALCIUM 7.6 mg/dL (8.5-10.1); CREATININE 0.7 mg/dL (0.6-1.3); POTASSIUM 3.7 mmol/L (3.5-5.1); TOTAL BILIRUBIN 0.3 mg/dL (<0.1-1.0); TOTAL PROTEIN 5.4 g/dL (6.4-8.2)
--- NOTE | 2019-10-16 08:59 | NUR ---
Per roderick, Pt is NWB for 10 post her surgery, Pt to be NWB until around 12/02, updated dtr and informed that Pt would need to return home with [facility] for the remainder of her NWB status, then could transition to SNF v rehab if still needed. Dtr voiced understanding and in agreement with POC. CM to update dtr on dc date once confirmed. CM updated HH on dispo plan. Following.
[2019-10-16 12:06] VITALS: BP 143/68
--- NOTE | 2019-10-16 15:54 | NUR ---
ASSUMED PT CARE AT 0730, PT A&O AND C/O SOME PAIN IN HER BACK AND RT HIP AND ANKLE, TREATED W/ PRN NORCO W/ NO RELIEF. PT REQUESTING BENADRYL INSTEAD, DR VILLARREAL CONSULTED, AWAITING ORDERS. PT HAS BEEN TURNED Q2H. PT WORKED W/ OT TODAY AND PT GOAL IS TO CONTINUE TO INCREASE ACTIVITY AND REMAIN FREE FROM SKIN BREAKDOWN. AM ASSESSMENT CHARTED, MEDS PER MAR, HOURLY ROUNDING OBSERVED, FALL PRECAUTIONS IN PLACE, CALL LIGHT W/IN REACH, WILL CONTINUE POC.
[2019-10-16 16:41] VITALS: BP 101/45
--- NOTE | 2019-10-16 17:39 | NUR ---
NO ACUTE CHANGES THROUGHOUT SHIFT, PT CONTINUED TO C/O PAIN TO BACK, RT HIP AND RT ANKLE, PRN NORCO GIVEN AND BENADRYL ADDED TO MAR AND ALSO GIVEN W/ RELIEF. PT WAS TURNED Q2H, MEDS PER JUN, HOURLY ROUNDING OBSERVED, FALL PRECAUTIONS IN PLACE, CALL LIGHT W/IN REACH, WILL CONTINUE POC.
[2019-10-16 20:00] VITALS: BP 145/74
[2019-10-17] VITALS: BP 149/76
[2019-10-17 08:00] VITALS: BP 130/75
[2019-10-17 08:25] LABS: ABSOLUTE EOSINOPHILS 0.1 thou/uL (0.0-0.7); ABSOLUTE LYMPHOCYTES 1.2 thou/uL (0.8-5.3); ABSOLUTE MONOCYTES 0.6 thou/uL (0.0-1.2); ABSOLUTE NEUTROPHILS 4.4 thou/uL (1.6-8.1); BASOPHILS 0.1 %; EOSINOPHILS 0.9 %; HEMATOCRIT 31.9 % (37.0-47.0); HEMOGLOBIN 10.4 gm/dL (12.0-15.0); LYMPHOCYTES 19.6 %; MCH 28.1 pg (26.0-34.0); MCHC 32.6 g/dL (28.0-37.0); MCV 86.1 fL (80.0-100.0); MONOCYTES 10.2 %; MPV 7.8 fl. (7.2-11.1); NUCLEATED RBCS 0 /100WBC; PLATELET COUNT* 311 thou/uL (150-400); POLYS 69.2 %; RDW-CV 17.1 % (10.5-14.5); WBC 6.3 thou/uL (4.0-11.0)
[2019-10-17 08:52] LABS: CALCIUM 8.6 mg/dL (8.5-10.1); CREATININE 0.7 mg/dL (0.6-1.3); MAGNESIUM 2.2 mg/dL (1.8-2.4); POTASSIUM 3.5 mmol/L (3.5-5.1)
[2019-10-17 09:51] LABS: BE 3.3 mmol/L (-2 to +3); PCO2 45.6 mmHg (35.0-45.0); pH 7.412 (7.340-7.450)
[2019-10-17 09:53] LABS: PO2 55.6 mmHg (75.0-100.0)
[2019-10-17 12:16] VITALS: BP 113/65
[2019-10-17 16:00] VITALS: BP 143/99
--- NOTE | 2019-10-17 18:08 | NUR ---
ASSUMED PT CARE AT 0730, PT RESTING IN BED C/O SOME PAIN TO BACK AND RLE, TREATED W/ PRN NORCO W/ SOME RELIEF. PT IS NON-WEIGHT BEARING TO RLE. PT WAS ON 2L THIS MORNING AND SATTING 93%, PT DROPPED TO 90% SO I INCREASED HER OXYGEN TO 3L, SAT 94%. PT WORKED W/ PT TODAY AND WENT DOWN FOR US OF UPPER ARMS R/T EDEMA. PT WAS TURNED Q2H AND GOAL IS TO DC TOMORROW. AM ASSESSMENT CHARTED, MEDS PER MAR, HOURLY ROUNDING OBSERVED, FALL PRECAUTIONS IN PLACE, CALL LIGHT W/IN REACH, WILL CONTINUE POC.
[2019-10-17 20:00] VITALS: BP 98/57
[2019-10-18] VITALS (7 sets, daily range): BP systolic 100–131; BP diastolic 64–71
--- NOTE | 2019-10-18 04:59 | NUR ---
PT A&O. ON 2.5-3L BY ROMÁN. MEDS GIVEN ORDERED. PAIN MANAGED WITH NORCO. PT SLEEPING THROUGH THE NIGHT WITH CPAP ON. FAMILY CONSULTANT, ZULEMA IN PLACE. HOURLY ROUNDINGS, TURNS COMPLETED. WILL CONTINUE TO MONITOR.
[2019-10-18 06:24] LABS: CALCIUM 8.2 mg/dL (8.5-10.1); CREATININE 0.8 mg/dL (0.6-1.3); POTASSIUM 3.8 mmol/L (3.5-5.1)
[2019-10-18 07:18] LABS: URINE BILIRUBIN NEGATIVE (Negative); URINE BLOOD NEGATIVE (Negative); URINE CLARITY CLEAR; URINE COLOR YELLOW; URINE GLUCOSE-RANDOM NEGATIVE (Negative); URINE KETONES NEGATIVE (Negative); URINE LEUKOCYTES-REFLEX NEGATIVE (Negative); URINE NITRITE-REFLEX NEGATIVE (Negative); URINE PROTEIN NEGATIVE (Negative); URINE UROBILINOGEN 0.2 E.U./dl (0.2-1.0)
[2019-10-18] MEDS ORDERED: CLARITIN10 MG PO (14:12)
[2019-10-18] MEDS ORDERED: LINEZOLID600 MG PO (14:12)
[2019-10-18] MEDS ORDERED: PHENAZOPYRIDIN200 M2 PO (14:12)
[2019-10-18] MEDS ORDERED: FLORASTOR250 MG PO (14:12)
[2019-10-18] MEDS ORDERED: SPIRONOLACTONE25 M1 PO (14:13)
[2019-10-18] MEDS ORDERED: LASIX 40 MG TAB40 MG PO (14:13)
--- NOTE | 2019-10-18 14:22 | NUR ---
Pt discharging to home today with [facility] . CM faxed DC orders and referral to [phone]. Updated Pt's grandson, dtr to bean picker at [place]. Updated [place] at .
[2019-10-18] MEDS ORDERED: MEDROLDOSEPACK PO (14:47)
--- NOTE | 2019-10-18 15:15 | NUR ---
ASSUMED PT CARE REPORT RECEIVED FROM NURSE.PT IS AOX4. ON 3 L NC. O2 SAT 94% TRACING SINUS RYTHM ON RISK MANAGEMENT DIRECTOR. PT COMPLAINS OF PAIN IN LOWER BACK. PAIN MEDICINE GIVEN. PT OUT OF BED TO RECLINER WITH THE PHYSICAL THERAPIST HELP. PT AT LUNCH IN BED. PT REQUESTED TO GET BACK IN BED AFTER LUNCH. NURSE , RECORD CENTER SPECIALIST AND PHYSICAL THERAPIST ASSISTED PT BACK IN BED WITH CHARISSA LIFT. PT IS TO GO HOME WITH HOME HEALTH TODAY. PT DAUGHTER WAS NOTIFIED BY BROADCAST DESIGNER. [employer] ECOLOGY PROFESSOR TIME IS SET FOR BETWEEN 17:00 AND 17:30 AFTER PT'S DAUGHTER COMES BACK FROM WORK. PT CURRENTLY IN BED. PAIN AND ANXIETY MEDICINE GIVEN. WILL CONTINUE TO MONITOR
--- NOTE | 2019-10-18 16:15 | NUR ---
Pt discharging to home today with [facility]. Faxed orders. Family to bring Pt's wc to the hospital, [facility] to provide dc transportation between 5-530.
--- NOTE | 2019-10-18 16:46 | NUR ---
WOUND NURSE: RECEIVED WOUND CONSULT FOR LOW KRISTA SCORE. HOWEVER CURRENT KRISTA SCORE DOCUMENTED TODAY IS 20. PATIENT IS ORIENTED AND HAS DOCUMENTED NUTRITIONAL ASSESSMENT FROM RD. WILL CANCEL WOUND CARE CONSULT A RESULT.
--- NOTE | 2019-10-18 18:05 | NUR ---
TRANSPORTATION [place] CAME UP WITH A WHEELCHAIR. NOT SAFE TO USE CHARISSA LIFT TO PLACE PT IN WHEELCHAIR. NO HELP IS GUARANTEED WHEN PT GETS HOME. THUS, THIS NURSE CONTACTED TRANSPORTATION AND REQUESTED THAT A STRETCHER BE SENT FOR PT TRANSFER. TRANSPORTATION IS SET UP FOR 07:00 -07:30 PM WITH A STRETCHER AND OXYGEN.
--- NOTE | 2019-10-18 18:07 | NUR ---
PICC LINE WAS REMOVED ORDERED AT 1740 AT BEDSIDE. COTTON BALL AND CO-BAND WRAPPED AROUND SITE. NO BLEEDING NOTICED. POOLE CATHETER WAS REMOVED ORDERED.
== END 2019-10-18 19:42 | disposition home health service (06) | DRG 871 ==
LOC: M.ERS 05:00 → M.TBA-ER 06:42 → M.ERS 06:42 → M.ICU 07:15 → M.TBA-ER 07:15 → M.ICU 08:46 → M.2W 10-14 15:49
PROVIDERS: Emergency Medicine; Internal Medicine Critical Care Medicine; Specialist; ADMIT Family Medicine; ATTEND Family Medicine
DX: A41.9 Sepsis, unspecified organism (principal); J15.6 Pneumonia due to other Gram-negative bacteria; J96.22 Acute and chronic respiratory failure with hypercapnia; J96.21 Acute and chronic respiratory failure with hypoxia; G92 Toxic encephalopathy; I50.33 Acute on chronic diastolic (congestive) heart failure; J96.11 Chronic respiratory failure with hypoxia; J44.1 Chronic obstructive pulmonary disease with (acute) exacerbation; J44.0 Chronic obstructive pulmonary disease with (acute) lower respiratory infection; D68.69 Other thrombophilia; E44.0 Moderate protein-calorie malnutrition; I48.91 Unspecified atrial fibrillation; Z96.642 Presence of left artificial hip joint; M54.9 Dorsalgia, unspecified; G20 Parkinson's disease; M19.90 Unspecified osteoarthritis, unspecified site; I87.8 Other specified disorders of veins; E66.9 Obesity, unspecified; G47.33 Obstructive sleep apnea (adult) (pediatric); K59.00 Constipation, unspecified; B95.8 Unspecified staphylococcus as the cause of diseases classified elsewhere; R65.20 Severe sepsis without septic shock; R73.9 Hyperglycemia, unspecified; K21.9 Gastro-esophageal reflux disease without esophagitis; E55.9 Vitamin D deficiency, unspecified; F41.9 Anxiety disorder, unspecified; G89.4 Chronic pain syndrome; N18.3 Chronic kidney disease, stage 3 (moderate); E88.09 Other disorders of plasma-protein metabolism, not elsewhere classified; Z20.828 Contact with and (suspected) exposure to other viral communicable diseases; Z87.440 Personal history of urinary (tract) infections; Z85.71 Personal history of Hodgkin lymphoma; Z68.39 Body mass index [BMI] 39.0-39.9, adult; Z79.891 Long term (current) use of opiate analgesic; Z79.899 Other long term (current) drug therapy; Z88.8 Allergy status to other drugs, medicaments and biological substances; Z99.81 Dependence on supplemental oxygen; Z79.01 Long term (current) use of anticoagulants

== ENCOUNTER 2019-12-01 20:03 | Inpatient (IN) | payer OTHER, MEDICAID ==
[~2019-12-01] VITALS: Ht 180.3 cm; Wt 108.1 kg
[~2019-12-01 20:03] MED LIST changes: +ASPERCREME1 EACH TOP; +BACLOFEN 10MG T10 MG PO; +BREO ELLIPTA 11 EACH PO; +CLARITIN10 MG PO; +DIVALPROEX SOD250 M1 PO; +FLORASTOR250 MG PO; +IBU600 MG PO; +LASIX 40 MG TAB40 MG PO; +LAXATIVE5 M1 PO; +LINEZOLID600 MG PO; +MEDROLDOSEPACK PO; +MILK OF MA400 MG/5 M PO; +OXYCONTIN15 MG PO; +PHENAZOPYRIDIN200 M2 PO; +PROAIR DIGIHAL90 MCG INH; +SPIRONOLACTONE25 M1 PO; +TRAMADOL HCL E100 MG PO; +VITAMIN D325 MC1 PO; +ZOLOFT50 M1 PO
[2019-12-01 20:23] VITALS: BP 146/91
[2019-12-01 21:52] LABS: ABSOLUTE BASOPHILS 0.1 thou/uL (0.0-0.2); ABSOLUTE EOSINOPHILS 0.2 thou/uL (0.0-0.7); ABSOLUTE MONOCYTES 0.5 thou/uL (0.0-1.2); ABSOLUTE NEUTROPHILS 6.6 thou/uL (1.6-8.1); EOSINOPHILS 1.9 %; HEMATOCRIT 34.5 % (37.0-47.0); LYMPHOCYTES 11.8 %; MCH 27.7 pg (26.0-34.0); MCV 86.6 fL (80.0-100.0); MONOCYTES 6.2 %; MPV 8.6 fl. (7.2-11.1); NUCLEATED RBCS 0 /100WBC; PLATELET COUNT* 272 thou/uL (150-400); POLYS 79.1 %; RBC 3.98 mil/uL (4.20-5.00); RDW-CV 17.3 % (10.5-14.5); WBC 8.3 thou/uL (4.0-11.0)
[2019-12-01 22:03] LABS: CALCIUM 8.6 mg/dL (8.5-10.1); CREATININE 0.9 mg/dL (0.6-1.3); POTASSIUM 3.6 mmol/L (3.5-5.1)
[2019-12-01 22:05] LABS: PROTIME 10.5 Seconds (9.20-11.50)
[2019-12-01 22:14] LABS: ALBUMIN 3.2 g/dL (3.4-5.0); MAGNESIUM 1.8 mg/dL (1.8-2.4); TOTAL BILIRUBIN 0.3 mg/dL (<0.1-1.0); TOTAL PROTEIN 7.4 g/dL (6.4-8.2)
[2019-12-02 00:25] LABS: URINE CLARITY CLEAR; URINE COLOR ORANGE; URINE SPECIFIC GRAVITY 1.025 (1.005-1.030)
[2019-12-02 00:31] LABS: URINE REDUCING SUBSTANCE NEGATIVE (Negative)
[2019-12-02 00:32] LABS: ACETEST (KETONE CONFIRMATORY) Negative (Negative); ICTOTEST (BILI CONFIRMATORY) Negative (Negative)
[2019-12-02 00:46] LABS: HYALINE CASTS 0-3 Few /LPF (None Seen); SQUAMOUS 0-3 Few /LPF (0-3)
[2019-12-02 00:47] LABS: BACTERIA-REFLEX 1-9 Few /HPF (None Seen); CRYSTALS None Seen /LPF (None Seen); URINE RBC None Seen /HPF (0-2); URINE WBC-REFLEX 0-5 Rare /HPF (0-5)
--- NOTE | 2019-12-02 07:43 | NUR ---
Admission to floor at 0330. She was admitted with an ileus. She hasn't had nausea since arrival to the floor. SONIYA is edemedous from a fracture in which she is to wear a walking boot which is in her room with her. Vitals are stable she was orientated to the room. She is resting at this time.
[2019-12-02 08:21] VITALS: BP 108/54
--- NOTE | 2019-12-02 10:44 | EKG ---
[place] [address] ELECTROCARDIOGRAM REPORT Name: CORA MALDONADO Room: [address] ADM IN M.R.#: [id number] Admission: 12/02/19 Attend Phys: Ronan Huffman Discharge: Date of : 52 Date of Service: 12/01/192026 Report #: [id number] THIS REPORT FOR: //name// [facility] ED Test Date: 2019-12-01 Test Time: 20:27:19 Pat Name: CORA MALDONADO Department: Room: [facility] Gender: F Castables Worker: JAMILAH : 1950 Requested By: Gisele Jewell Order Number: [id number] MD: Jose Shoemaker Measurements Intervals [place] Rate: 86 P: 36 MI: 170 QRS: 88 QRSD: 101 T: -10 QT: 399 QTc: 478 Interpretive Statements Sinus rhythm Ventricular premature complex Borderline right axis deviation Abnormal T, consider ischemia, anterior leads Compared to ECG 10/09/2019 06:07:55 Ventricular premature complex(es) now present T-wave abnormality now present Possible ischemia now present Electronically Signed On 12-02-2019 10:44:05 CDT by Jose Shoemaker [email or web address] <ELECTRONICALLY SIGNED> By: Jose Shoemaker MD, [facility] 12/02/19 1044 26 26 Jose Shoemaker MD, [facility] /EPI
--- NOTE | 2019-12-02 13:53 | NUR ---
CM SPOKE TO THE PT TO DISCUSS HER HOME SITUATION, DISCHARGE PLANNING, AND TO INFORM OF THE ROLE OF CM. PT A&O, AND INDEPENDENT WITH ADL'S. PT RESIDED AT HOME WITH HER DTR AND ASSIST HER NEEDED. PT'S DTR DOES THE COOKING, BOOM STICK MAN AND PROVIDES TRANSPORTAION NEEDED FOR THE PT. PT USES A WALKER FOR MOBILITY AND ALSO USES HOME O2 @ 3L PROVIDED BY [facility]. PT WAS RECENTLY D/C'D FROM HH WITH [facility] (11/26/19). PT HAS HX OF SNF AT [facility], BUT INFORMS 'I DON'T HAVE ANY SKILLED DAYS LEFT'. PT WILL LIKELY NEED HH AT D/C AND SHE IS OPEN TO HH WITH [facility]. CM WILL REMAIN AVAILABLE TO ASSIST AND FOLLOW NEEDED.
[2019-12-02 16:30] VITALS: BP 109/55
--- NOTE | 2019-12-02 18:04 | NUR ---
A&OX 4, P,W,D. 02 ON AT 2L PER NC. IV LEFT FA NS AT 100/HR INFUSING WITHOUT DIFFICULTY. LUNGS CLEAR ON LEFT WITH OCC. WHEEZING ON RIGHT SIDE. +BS X 4 QUADS. PATIENT HAS WALKING BOOT FOR RIGHT FOOT/LEG WHEN UP. UP WITH ASSIST X 1 WITH GAIT BELT AND WALKER. RIGHT LOWER LEG IS A LITTLE SWOLLEN DUE TO RT FIBULA FX. ARM TREMORS NOTED RELATED TO PARKINSON'S DX. WILL CONTINUE TO MONITOR.
[2019-12-02 19:50] VITALS: BP 108/65
--- NOTE | 2019-12-03 04:42 | NUR ---
PT A&OX4, ON 2L NC, VSS, IV FLUIDS INFUSING ORDERED, PT UP WITH ASSIST TO BSC. PAIN MEDS REQUESTED AND GIVEN ORDERED. PT SLEEPING WELL. HOURLY ROUNDINGS COMPLETE. WILL CONTINUE TO MONITOR.
[2019-12-03 07:40] VITALS: BP 117/57
--- NOTE | 2019-12-03 14:01 | NUR ---
CM RECIEVED A CALL FROM THE PT'S DTR QUESTIONING IF THE PT COULD POSSIBLY BE CONSIDERED FOR INPT REHAB HERE AT THE HOSPITAL. PER P.T. IT WAS QUESTIONED IF PT WAS SAFE TO RETURN HOME 'SHE ENTER HER HOME WITH W/C ASSITANCE UPSTAIR BY A FAMILT MEMBER'. PT'S DTR INFORMS THAT THERE IS 'NO ISSUE WITH GETTING HER INTO THE HOME'. CM INFORMED THE PHYSICIAN OF THE DTR'S REQUEST FOR INPT REHAB. CM WILL REMAIN AVAILABLE TO ASSIST AND FOLLOW NEEDED.
--- NOTE | 2019-12-03 14:21 | NUR ---
DR. ARBOLEDA NOTIFIED THAT PATIENTS IV FELL OUT WHILE PHYSICAL THERAPY WAS WORKING WITH HER. OKAY TO LEAVE IV OUT.
[2019-12-03 16:00] VITALS: BP 118/64
--- NOTE | 2019-12-03 17:55 | NUR ---
A&OX 4, PWD. NO IV PULLED OUT WHEN PHYSICAL THERAPY WAS WORKING WITH HER TODAY. NOTIFIED AND OK TO LEAVE IV OUT. IV FLUIDS DC'D. HAS WALKING BOOT FOR RIGHT FOOT AND LOWER LEG TO LISA WHEN SHE IS UP DUE TO FX OF FIBULA ON RIGHT. UP WITH MAX ASSIST X 1 WITH GAIT BELT AND WALKER. 02 ON AT 2L PER NC WITH 02 SAT'S AT 93%. TOOK 2 TRAMADOL'S (100MG) AT 1458 FOR RIGHT ANKLE PAIN AND BACK PAIN. ALSO TOOK HYDROCODONE AT 1708 FOR SAME PAIN. WILL CONTINUE TO MONITOR.
[2019-12-03 20:01] VITALS: BP 93/51
--- NOTE | 2019-12-04 05:13 | NUR ---
PT A&OX4, ON 2L NC, UP WITH ASSIST TO BSC, NO IV ACCESS - PHYSICIAN OK'D, VSS, PAIN MEDS REQUESTED AND GIVEN ORDERED, PT REFUSED MILK OF MAG FOR CONSTIPATION. ASSESSMENTS AND HOURLY ROUNDINGS COMPLETE, WILL CONTINUE TO MONITOR.
[2019-12-04 07:45] VITALS: BP 104/61
[2019-12-04] MEDS ORDERED: PAXIL40 MG PO (14:07)
[2019-12-04] MEDS ORDERED: KLOR-CON M2020 MEQ PO (14:07)
[2019-12-04] MEDS ORDERED: COLACE100 MG PO (14:08)
[2019-12-04] MEDS ORDERED: SYMBICORT160 MCG/4. PO (14:09)
[2019-12-04 16:29] VITALS: BP 108/56
--- NOTE | 2019-12-04 17:51 | NUR ---
Pt AOx4. VSS. Pt is up with assist x1 with gb and walker to [facility]. Working with PT/OT. Pt has a tremor from parkinsons, makes gait unsteady. Pt had a small BM today after laxatives given. Pt tolerating regular diet. C/o pain to RLE, tramadol po prn to manage pain. hourly rounding complete will continue to monitor
[2019-12-05 04:00] VITALS: BP 100/48
--- NOTE | 2019-12-05 04:35 | NUR ---
PT HAS HAD UNEVENTFUL NIGHT, SHE HAS SLEPT WELL ONLY WAKING TO GET TO BSC. PT HAS VERY LIMITED MOBILITY IN BLE. NC 2L AND BIPAP AT HS WITH 2L. PAIN CONTROLLED WITH ORAL MEDS. SAFETY MEASURES IN PLACE, WCTM
[2019-12-05 09:00] VITALS: BP 94/51
[2019-12-05] MEDS ORDERED: PHENERGAN 25 MG25 M1 PO (11:38)
[2019-12-05] MEDS ORDERED: BANOPHEN25 MG PO (11:38)
[2019-12-05 12:35] VITALS: BP 100/48
--- NOTE | 2019-12-05 16:20 | NUR ---
CM INFORMED BY THE PHYSICIAN THAT THE PT'S INSURANCE HAD DENIED INPT REHAB [id number] WITH THE RECOMMENDATION OF SNF PLACEMENT. CM SPOKE TO THE PT AND HER DTR TO DISCUSS THIS AND BOTH ARE IN AGREEMENT WITH THE PLAN TO D/C TO SNF AT PT'S AND DTR'S CHOSEN [facility]ACIL[facility]Y [facility] WHEN ARRANGED. CM SPOKE TO [facility] TO INFORM OF THE REFERRAL AND FAXED PT'S CLINICAL INFO. CM AWAITING A RETURN CALL TO DISCUSS ABILITY TO ACCEPT THE PT. CM WILL REMAIN AVAILABLE TO ASSIST AND FOLLOW NEEDED.
--- NOTE | 2019-12-05 19:16 | NUR ---
Pt AOx4. Pt is up to C with assist x1 with gb and walker. Pt is receiving PT/OT. C/o pain and managing with PO norco and tramadol. Pt is on regular diet and tolerates well. Orthopedic boot in place while OOB. hourly rounding complete, will continue to monitor
[2019-12-06] VITALS: BP 94/50
--- NOTE | 2019-12-06 05:06 | NUR ---
PT CONCERNED ABOUT LACK OF URINE OUTPUT, STATING SHE ONLY WENT (VOIDED) ONCE TODAY. PER TECH PT HAD GONE TWICE THIS SHIFT WHEN SHE STATED THIS. SHE COMPLAINED OF FEELING "FULL" SO THIS RN PERFORMED BLADDER SCAN POST VOID YEILDING ONLY 50 mL OF URINE. PT STILL STATES SHE DOESNT FEEL LIKE SHE IS GOING ENOUGH. WHEN QUESTIONING PT ABOUT SX, SHE STATES SHE IS HAVING A LOT OF GAS PAIN IN STOMACH. PT WAS REASSURED AND THAT SHE WOULD BE SEEN IN AM. SLEPT WELL WITH BIPAP IN PLACE, SAFETY PRECAUTIONS OBSERVED, WCTM
[2019-12-06 08:37] VITALS: BP 80/47
--- NOTE | 2019-12-06 16:00 | NUR ---
LEFT FOR [facility] AT 0945 THIS AM TO SEE IF THEY CAN ACCEPT PT.TODAY. NO RETURN CALL. TEXT [facility]GRAHAM AT [facility] AT 1026 TO SEE IF THEY RECEIVED MY MESSAGE. MANY QUESTIONS FROM [facility] D.O.M. THROUGHOUT DAY REGARDING PT. CM CALLED AND TEXT [facility] IN ADMISSIONS AT THIS TIME. LEFT WITH NO RETURN CALL.
[2019-12-06 16:15] VITALS: BP 85/49
--- NOTE | 2019-12-06 17:16 | NUR ---
PT A&Ox4. VITALS STABLE. NO IV, DR EDEN. UP WITH 1 USING GAIT BELT AND WALKER. PT WEARS BOOT ON RIGHT FOOT WHEN AMBULATING FOR PREVIOUS FRACTURE. WAITING SNF PLACEMENT. ON 3LO2 AT HOSPITAL AND AT HOME, CPAP AT NIGHT. REGULAR DIET. PAIN CONTROLLED. DENIED N/V. SOFT BP, HX OF SOFT BP. FALL PRECAUTIONS IN PLACE. CALL LIGHT WITHIN REACH. WILL CONTINUE TO MONITOR.
[2019-12-06 19:45] VITALS: BP 93/45
--- NOTE | 2019-12-07 04:31 | NUR ---
PATIENT HAS REMAINED ALERT AND ORIENTED X 4 THROUGHOUT THE SHIFT AND RESTING QUIETLY ON HOURLY ROUNDS. UP TO BSC TO VOID. MOD ASSIST SIT TO STAND. CGA WITH WALKER/GAIT BELT FOR TRANSFER WITH WALKING BOOT RLE. VITAL SIGNS STABLE. MEDICATED FOR PAIN X 1 THIS SHIFT TO GOOD EFFECT. FALL PRECAUTIONS IN PLACE. CONTINUE TO MONITOR.
[2019-12-07 08:30] VITALS: BP 111/47
--- NOTE | 2019-12-07 18:21 | NUR ---
PATIENT ALERT AND ORIENTED X 4. VITAL SIGNS STABLE ON ROOM AIR. AFEBRILE. DENIES NAUSEA AT THIS TIME. PAIN BEING MANAGED WITH PO MEDICATION. TURNED AND REPOSITIONED EVERY TWO HOURS. HOURLY ROUNDS MAINTAINED THROUGHOUT THE SHIFT. CALL LIGHT WITHIN REACH. NURSING WILL CONTINUE TO MONITOR.
[2019-12-07 20:15] VITALS: BP 108/51
[2019-12-07 23:59] VITALS: BP 92/47
[2019-12-08 08:10] VITALS: BP 104/43
[2019-12-08 15:36] VITALS: BP 93/46
--- NOTE | 2019-12-08 17:41 | NUR ---
PATIENT ALERT AND ORIENTED X 4. VITAL SIGNS STABLE ON ROOM AIR. IV PATENT AND SALINE LOCKED. DENIES NAUSEA AT THIS TIME. PAIN BEING MANAGED WITH PO MEDICATION. FALL PRECAUTIONS IN PLACE AND BED ALARM ON. HOURLY ROUNDS MAINTAINED THROUGHOUT THE SHIFT. CALL LIGHT WITHIN REACH. NURSING WILL CONTINUE TO MONITOR.
[2019-12-08 20:30] VITALS: BP 95/46
[2019-12-09 00:05] VITALS: BP 95/53
--- NOTE | 2019-12-09 06:42 | NUR ---
PATIENT HAS SLEPT WELL THROUGHOUT MOST OF THE NIGHT. VSS ON 3L 02 VIA NASAL CANNULA. MEDICATIONS GIVEN ORDERED AND CHARTED. PATIENT NOT WANTING TO GET UP D/T HER STATING THAT SHE WOULD WET THE BED BECAUSE WHEN SHE HAS TO URINATE IT COMES QUICKLY AND SHE STATED THAT SHE IS UNABLE TO MAKE IT TO THE BSC. PATIENT WAS UP WITH ASSIST X 2 TO THE BSC X 1 AND THEN REQUESTED TO USE BEDPAN. LUNGS DIMINISHED AND PATIENT HAS POSITIVE BOWEL SOUNDS. FALL PRECAUTIONS IN PLACE AND HOURLY ROUNDS MADE. WILL CONTINUE WITH PLAN OF CARE AND NURSING TO MONITOR.
[2019-12-09 08:00] VITALS: BP 130/80
--- NOTE | 2019-12-09 09:56 | NUR ---
melissa spk w/sundar at [facility] to fu on the referral sent. sundar wanted to ensure pt was aware she could not smoke, as [facility] rules have changed d/t covid and pt needs take her cpap w/her to snf. melissa confirmed the pt has her cpap w/her in her room. pt stated she has quit smoking 7 yrs a/g. melissa faxd covid results. per sundar insurance auth is pending.
[2019-12-09 15:50] VITALS: BP 111/56
--- NOTE | 2019-12-09 18:21 | NUR ---
PT A&Ox4. VITALS STABLE. NO IV. PAIN CONTROLLED WITH TRAMADOL. UP WITH 1 USING GAITBELT, WALKER AND WALKING BOOT FOR RIGHT FOOT. FREQUENT URINATION, BLADDER SCAN COMPLETE, 26ML IN BLADDER AFTER URINATING. FALL PRECAUTIONS IN PLACE. CALL LIGHT WITHIN REACH. WILL CONTINUE TO MONITOR.
[2019-12-09 20:09] VITALS: BP 118/59
--- NOTE | 2019-12-10 04:22 | NUR ---
PT A&OX4, ON 3L NC - CPAP WHILE SLEEPING, VSS, PT UP WITH ASSIST TO BSC, PAIN MEDS REQUESTED AND GIVEN ORDERED, PT SLEEPING WELL, HOURLY ROUNDINGS COMPLETE. WILL CONTINUE TO MONITOR.
--- NOTE | 2019-12-10 16:00 | NUR ---
LEFT MESSAGES THIS AM FOR [facility] THIS AM AT 9 AM REGARDING STATUS OF INSURANCE AUTH. CALL BACK FROM [facility] AT 1330 SAYING NO SKILLABLE NEED. ADMITTING DX HEADACHE/ABD.PAIN AND NAUSEA WERE NOT SKILLED DX. INFORMED HER PT.HAS HX OF PARKSINSONS, WITH DEBILITY AND NEED FOR STRENGTHENING. HAS RECENT HX OF ORIF ANKLE WITH THERAPY NEEDS AND COPD WITH ENERGY CONSERVATION AND O2 CONSERVATION NEEDS. SHE SAID SHE WOULD CHECK WITH HER D.O.N. INFORMED HER INS.SAID THEY WOULD AUTH SNF WHEN THEY DENIED INPT.REHAB. [facility] CALLED AND THIS TIME AND SAID SHE IS STILL TRYING TO GET AN ANSWER FROM THEIR BUSINESS OFFICE.
--- NOTE | 2019-12-10 18:58 | NUR ---
PT A&OX4 VSS. PT UP SBA W/WALKER AND GAIT BELT. ORTHO BOOT TO BE PLACED TO RLE WHEN AMBULATING. PT HAS NO IV ACCESS AT THIS TIME. PT HAS TREMORS R/T DX PARKINSONS. PT HAS EPISODES OF BLADDER OF INCONTINENCE. PT REQUESTED ASSISTANCE TO BSC, BUT WHEN NURSING STAFF ARRIVED TO ROOM PT WAS URINATING ON FLOOR. PT IS CURRENTLY WAITING FOR PLACEMENT/AUTH TO SNF. PT REQUIRES STRONG ENCOURAGEMENT TO PERFORM ADLS INDEPENDENTLY AND TO GET OUT OF BED AND SPEND TIME UP IN RECLINER. PT TAKES PILLS WITH THIN LIQUID W/O DIFFICULTY. PT WILL FREQUENTLY ASK ABOUT PAIN PILLS, EVEN WHEN FOUND TO BE SLEEPING SOUNDLY IN CHAIR OR BED. PT RATES PAIN AT 5/10 THIS EVENING PRIOR TO ADMINISTRATION OF 50MG TRAMADOL. PT CONINUES TO REST IN BED WITH CALL LIGHT IN REACH. WILL CONTINUE TO MONITOR.
[2019-12-10 19:40] VITALS: BP 124/76
--- NOTE | 2019-12-11 04:57 | NUR ---
PATIENT HAS REMAINED ALERT AND ORIENTED X 4 THROUGHOUT THE SHIFT AND RESTING QUIETLY ON HOURLY ROUNDS. UP TO BSC WITH MOD ASSIST OF ONE AND GAIT BELT AND WALKING BOOT RLE. HAS X 2 ALSO USED BEDPAN FOR URGENT VOIDS/INCONT. MEDICATED FOR PAIN X 3 OF THIS WRITING. PATIENT CONSISTENTLY RATING PAIN 5-6/10 UNLESS ASLEEP. NO NAUSA. MOD BM THIS SHIFT. VITAL SIGNS STABLE. CONTINUE TO MONITOR.
[2019-12-11 07:50] VITALS: BP 124/70
--- NOTE | 2019-12-11 15:46 | NUR ---
cm left vm for renita to discuss LTC options or if pt has an alternative placement option.
[2019-12-11 15:53] VITALS: BP 99/47
--- NOTE | 2019-12-11 18:07 | NUR ---
ASSUMED CARE OF PATIENT AT APPROX 0730. ALERT AND ORIENTED X4. ASSESSMENT COMPLETED AND CHARTED. VSS ON 3 . COMPLAINT OF PAIN ADDRESSED WITH ORAL PAIN MEDICATIONS. PATIENT UP WITH CAM BOOT IN PLACE TO USE BEDSIDE COMMODE. NOOTHER COMPLAINTS THIS SHIFT. PATIENT WORKED WITH THERAPIES AND IS PROGRESSING TOWARD GOALS. FALL PRECAUTIINS IN PLACE. CALL LIGHT WITHIN REACH. HOURLY ROUNDS COMPLETED. WILL CONTINUE WITH PLAN OF CARE.
[2019-12-11 20:05] VITALS: BP 95/50
--- NOTE | 2019-12-12 04:44 | NUR ---
PATIENT HAS REMAINED ALERT AND ORIENTED X 4 THROUGHOUT THE SHIFT AND RESTING QUIETLY ON HOURLY ROUNDS. UP TO BSC MIN/ MOS ASSIST WITH GAIT BELT AND RLE CAM BOOT. VITAL SIGNS STABLE. PATIENT REPORTING INCREASE SATIFACTION WITH PAIN MANAGMENT. NO STOOLS THIS SHIFT. NO NAUSEA/VOMITING. O2 AND CPAP PER HOME USE. CONTINUE TO MONITOR.
[2019-12-12 08:57] VITALS: BP 101/70
--- NOTE | 2019-12-12 12:58 | NUR ---
Nutrition: Pt admitted with ileus. Has trouble ambulating d/t ankle. Parkinsons flare. H/o COPD. Usual wt, per [facility], is ~ 250s, currently is recorded as 138# - possible 10-12# loss in 2 months. Assessed for LOS. Regular diet ordered. Pt usually eats well. Discharging to rehab or SNF. Will follow wt trends if pt remains here. Low to mild risk. Follow up 12/17/19.
--- NOTE | 2019-12-12 14:24 | NUR ---
sundar w/[facility] called to inform cm she has received insur auth and will set up transportation w/[employer] btwn 430-5p. keira advised to set up transporation w/ w/c and 3l O2. cm notified pt's dtr renita. and provided renita w/pt room number (F4) and [facility] phone number. pt nurse is agreeable to plan. number to call report is [phone]; ask for "[facility]."
[2019-12-12 14:29] VITALS: BP 100/48
== END 2019-12-12 17:00 | DRG 389 ==
LOC: M.ERS 20:03 → M.TBA-ER 12-02 02:28 → M.ORTHSURG 12-02 02:28
PROVIDERS: Emergency Medicine; ADMIT Internal Medicine; ATTEND Internal Medicine
PROC: 5A09357 Assistance with Respiratory Ventilation, Less than 24 Consecutive Hours, Continuous Positive Airway Pressure (ICD-10-PCS; principal; 2019-12-05)
PROC: 5A09357 Assistance with Respiratory Ventilation, Less than 24 Consecutive Hours, Continuous Positive Airway Pressure (ICD-10-PCS; 2019-12-09)
PROC: 5A09357 Assistance with Respiratory Ventilation, Less than 24 Consecutive Hours, Continuous Positive Airway Pressure (ICD-10-PCS; 2019-12-11)
PROC: 5A09357 Assistance with Respiratory Ventilation, Less than 24 Consecutive Hours, Continuous Positive Airway Pressure (ICD-10-PCS; 2019-12-12)
DX: K56.7 Ileus, unspecified (principal); E44.0 Moderate protein-calorie malnutrition; D68.59 Other primary thrombophilia; J96.11 Chronic respiratory failure with hypoxia; C81.90 Hodgkin lymphoma, unspecified, unspecified site; G20 Parkinson's disease; J44.9 Chronic obstructive pulmonary disease, unspecified; F02.80 Dementia in other diseases classified elsewhere, unspecified severity, without behavioral disturbance, psychotic disturbance, mood disturbance, and anxiety; M54.9 Dorsalgia, unspecified; I48.91 Unspecified atrial fibrillation; F41.1 Generalized anxiety disorder; R51 Headache; R30.0 Dysuria; I87.8 Other specified disorders of veins; G47.33 Obstructive sleep apnea (adult) (pediatric); K59.00 Constipation, unspecified; E05.90 Thyrotoxicosis, unspecified without thyrotoxic crisis or storm; K21.9 Gastro-esophageal reflux disease without esophagitis; E66.01 Morbid (severe) obesity due to excess calories; E88.09 Other disorders of plasma-protein metabolism, not elsewhere classified; M19.90 Unspecified osteoarthritis, unspecified site; R73.9 Hyperglycemia, unspecified; E55.9 Vitamin D deficiency, unspecified; G89.4 Chronic pain syndrome; N18.3 Chronic kidney disease, stage 3 (moderate); Z96.642 Presence of left artificial hip joint; Z96.641 Presence of right artificial hip joint; Z99.81 Dependence on supplemental oxygen; Z68.33 Body mass index [BMI] 33.0-33.9, adult; Z88.1 Allergy status to other antibiotic agents; Z88.8 Allergy status to other drugs, medicaments and biological substances; Z79.899 Other long term (current) drug therapy; Z87.891 Personal history of nicotine dependence; Z20.828 Contact with and (suspected) exposure to other viral communicable diseases

== ENCOUNTER 2020-05-11 17:19 | Emergency (ER) | payer OTHER, MEDICAID ==
[~2020-05-11] VITALS: Ht 177.8 cm; Wt 117.9 kg
[~2020-05-11 17:19] MED LIST changes: +BANOPHEN25 MG PO; +PAXIL40 MG PO; +PHENERGAN 25 MG25 M1 PO; +SYMBICORT160 MCG/4. PO
[2020-05-11] MEDS ORDERED: HYDROCODON-ACE1 EA12 PO (17:34)
[2020-05-11 18:06] LABS: ABSOLUTE EOSINOPHILS 0.2 thou/uL (0.0-0.7); ABSOLUTE LYMPHOCYTES 0.9 thou/uL (0.8-5.3); ABSOLUTE MONOCYTES 0.6 thou/uL (0.0-1.2); ABSOLUTE NEUTROPHILS 5.6 thou/uL (1.6-8.1); BASOPHILS 0.7 %; EOSINOPHILS 2.7 %; HEMOGLOBIN 10.6 gm/dL (12.0-15.0); LYMPHOCYTES 12.4 %; MCH 28.1 pg (26.0-34.0); MCV 87.9 fL (80.0-100.0); MONOCYTES 7.8 %; MPV 7.6 fl. (7.2-11.1); NUCLEATED RBCS 0 /100WBC; PLATELET COUNT* 216 thou/uL (150-400); POLYS 76.4 %; RBC 3.75 mil/uL (4.20-5.00); RDW-CV 15.7 % (10.5-14.5); WBC 7.4 thou/uL (4.0-11.0)
[2020-05-11 18:19] LABS: PROTIME 10.5 Seconds (9.20-11.50)
[2020-05-11 18:20] LABS: CALCIUM 8.8 mg/dL (8.5-10.1); POTASSIUM 4.9 mmol/L (3.5-5.1)
[2020-05-11 18:26] LABS: ALBUMIN 3.2 g/dL (3.4-5.0); TOTAL BILIRUBIN 0.4 mg/dL (<0.1-1.0); TOTAL PROTEIN 7.1 g/dL (6.4-8.2)
[2020-05-11 18:54] LABS: URINE BILIRUBIN NEGATIVE (Negative); URINE BLOOD NEGATIVE (Negative); URINE CLARITY CLEAR; URINE COLOR YELLOW; URINE GLUCOSE-RANDOM NEGATIVE (Negative); URINE KETONES NEGATIVE (Negative); URINE LEUKOCYTES-REFLEX NEGATIVE (Negative); URINE NITRITE-REFLEX NEGATIVE (Negative); URINE PROTEIN NEGATIVE (Negative); URINE SPECIFIC GRAVITY 1.015 (1.005-1.030); URINE UROBILINOGEN 0.2 E.U./dl (0.2-1.0)
[2020-05-11 21:01] VITALS: BP 144/72
== END 2020-05-11 21:03 | disposition home or self-care (01) ==
LOC: M.ERS 17:19
PROVIDERS: Nurse Practitioner Family
DX: R30.0 Dysuria (principal); J44.9 Chronic obstructive pulmonary disease, unspecified; I48.91 Unspecified atrial fibrillation; E03.9 Hypothyroidism, unspecified; Z79.899 Other long term (current) drug therapy; Z88.1 Allergy status to other antibiotic agents; Z20.828 Contact with and (suspected) exposure to other viral communicable diseases

== ENCOUNTER 2020-06-30 21:03 | Inpatient (IN) | payer OTHER, MEDICAID ==
[~2020-06-30] VITALS: Ht 177.8 cm; Wt 114.0 kg
--- NOTE | ~2020-06-30 | PROC ---
[address] [address] PROCEDURE REPORT Name: CORA MALDONADO Room: [address] IN M.R.#: [id number] Admission: 07/01/20 Attend Phys: Ana Cristina Fisher MD Discharge: 07/04/20 Date of : 52 Report #: [id number] THIS REPORT FOR: cc: Maylin Morillo Ahmad W. DO ~ [facility],Medical Records Staff For GI report, please see the Provation report in Perceptive 7 content. By: [id number] Records Staff [facility] /JACK
[~2020-06-30 21:03] MED LIST changes: +HYDROCODON-ACE1 EA12 PO
[2020-06-30 21:05] VITALS: BP 88/50
[2020-06-30] MEDS ORDERED: BLOOD PRESSURE (21:13)
[2020-06-30 21:48] LABS: HEMATOCRIT 40.3 % (37.0-47.0); HEMOGLOBIN 12.6 gm/dL (12.0-15.0); MCH 27.8 pg (26.0-34.0); MCHC 31.4 g/dL (28.0-37.0); MCV 88.6 fL (80.0-100.0); MPV 8.2 fl. (7.2-11.1); NUCLEATED RBCS 0 /100WBC; PLATELET COUNT* 234 thou/uL (150-400); RBC 4.55 mil/uL (4.20-5.00); RDW-CV 15.8 % (10.5-14.5); WBC 9.8 thou/uL (4.0-11.0)
[2020-06-30 21:55] LABS: CREATININE 1.2 mg/dL (0.6-1.3)
[2020-06-30 21:59] LABS: ALBUMIN 3.3 g/dL (3.4-5.0); TOTAL BILIRUBIN 0.4 mg/dL (<0.1-1.0); TOTAL PROTEIN 7.1 g/dL (6.4-8.2)
[2020-06-30 22:41] LABS: ABSOLUTE BASOPHILS 0.1 thou/uL (0.0-0.2); ABSOLUTE LYMPHOCYTES 0.2 thou/uL (0.8-5.3); ABSOLUTE MONOCYTES 0.2 thou/uL (0.0-1.2); ABSOLUTE NEUTROPHILS 9.3 thou/uL (1.6-8.1)
[2020-06-30 22:43] LABS: PLATELET ESTIMATE ADEQUATE
[2020-06-30] MEDS ORDERED: COZAAR 25 MG TA25 M1 PO (23:49)
[2020-06-30 23:56] LABS: URINE BILIRUBIN NEGATIVE (Negative); URINE BLOOD TRACE (Negative); URINE CLARITY CLEAR; URINE COLOR YELLOW; URINE GLUCOSE-RANDOM NEGATIVE (Negative); URINE KETONES NEGATIVE (Negative); URINE LEUKOCYTES-REFLEX TRACE (Negative); URINE PROTEIN NEGATIVE (Negative); URINE SPECIFIC GRAVITY <= 1.005 (1.005-1.030); URINE UROBILINOGEN 0.2 E.U./dl (0.2-1.0)
[2020-06-30 23:57] LABS: URINE NITRITE-REFLEX POSITIVE (Negative)
[2020-07-01 00:06] LABS: CASTS None Seen /LPF (None Seen); SQUAMOUS 4-10 Moderate /LPF (0-3)
[2020-07-01 00:07] LABS: BACTERIA-REFLEX >30 Many /HPF (None Seen); CRYSTALS None Seen /LPF (None Seen)
[2020-07-01 01:10] VITALS: BP 116/58
[2020-07-01 01:45] VITALS: BP 98/53
--- NOTE | 2020-07-01 05:34 | NUR ---
PATIENT IS RESTING IN BED. C/O GENERALIZED PAIN/DISCOMFORT, HYDROCODONE X1 GIVEN. IV FLUIDS INFUSING. ALL QUESTIONS AND CONCERNS ADDRESSED.
[2020-07-01 08:00] VITALS: BP 99/67
--- NOTE | 2020-07-01 10:22 | EKG ---
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1950 Requested By: Kelvin Winston Order Number: [id number] MD: Jose Shoemaker Measurements Intervals [place] Rate: 95 P: 24 CO: 164 QRS: 99 QRSD: 99 T: 45 QT: 355 QTc: 447 Interpretive Statements Sinus rhythm Right axis deviation Borderline repolarization abnormality Compared to ECG 12/01/2019 20:27:19 Ventricular premature complex(es) no longer present Possible ischemia no longer present Electronically Signed On 07-01-2020 10:22:11 AUTOMATIC QUILLING MACHINE OPERATOR by Jose Shoemaker [email or web address] <ELECTRONICALLY SIGNED> By: Jose Shoemaker MD, [facility] 07/01/20 1022 09 09 Jose Shoemaker MD, [facility] /EPI
[2020-07-01 15:14] LABS: CALCIUM 7.6 mg/dL (8.5-10.1); CREATININE 0.9 mg/dL (0.6-1.3); POTASSIUM 4.2 mmol/L (3.5-5.1)
[2020-07-01 15:16] LABS: PHOSPHORUS* 3.2 mg/dL (2.5-4.9)
--- NOTE | 2020-07-01 18:20 | NUR ---
PT RESTING ON BED UP TO THE BEDSIDE COMMODE WITH SBA. VSS AFEBRILE. IV FLUIDS INFUSING THROUH SALINE LOCK IN HER LEFT FOREARM. PT WAS NEEDING HER HOME MEDICATIONS AND THEY WERE GIVEN AT 1500, AFTER ORDERS PLACED. PT HAS STATED THAT SHE IS HAVING SOME BURNING ON URINATION, ENCOURAGED HER TO DRINK AND VOID SHE NEEDS TOO. PT DID DRINK CRANBERRY JUICE TO HELP WITH BURNING. WILL CONTINUE TO MONITOR PLAN OF CARE.
[2020-07-02 07:55] VITALS: BP 116/62
--- NOTE | 2020-07-02 08:29 | NUR ---
PATIENT HAS SLEPT WELL THROUGHOUT MOST OF THE NIGHT. VSS ON 3L 02 VIA NASAL CANNULA. MEDICATIONS GIVEN ORDERED AND CHARTED. PATIENT UP WITH SBA TO THE BATHROOM. IV IN LEFT FOREARM-NS @ 100ML/HR. PATIENT INSTRUCTED TO USE CALL LIGHT WHEN NEEDING ASSISTANCE. HOURLY ROUNDS MADE. WILL CONTINUE WITH PLAN OF CARE AND NURSING TO MONITOR.
[2020-07-02 16:16] VITALS: BP 127/76
--- NOTE | 2020-07-02 18:05 | NUR ---
PT DOING BOWEL PREP, FINALLY HAVING BOWEL MOVEMENTS. PT WITH SALINE LOCK IN LEFT FOREARM WITH IV FLUIDS INFUSING WITHOUT DIFFICULTY. VSS AFEBRILE. PT UP TO BSC WITH SBA. PT WILL HAVE EDG AND COLOOSCOPY ON Monday07/03/20. WILL CONTINUE TO MONITOR.
[2020-07-02 20:00] VITALS: BP 137/81
--- NOTE | 2020-07-03 04:32 | NUR ---
PT A&O X 4. ON 3L. MEDS GIVEN ORDERED. NO C/O NAUSEA. NPO SINCE MIDNIGHT. UP TO BSC WITH SBA. BOWEL PREP IN PROGRESS. STOOL ALMOST CLEAR. IVF INFUISING. CALL LIGHT WITHIN REACH. WILL CONTINUE TO MONITOR.
[2020-07-03 04:57] LABS: HEMATOCRIT 28.3 % (37.0-47.0); MCH 27.8 pg (26.0-34.0); MCHC 31.6 g/dL (28.0-37.0); MPV 7.8 fl. (7.2-11.1); RBC 3.22 mil/uL (4.20-5.00); RDW-CV 15.9 % (10.5-14.5); WBC 4.9 thou/uL (4.0-11.0)
[2020-07-03 05:10] LABS: ALBUMIN 2.4 g/dL (3.4-5.0); ALKALINE PHOSPHATASE 65 U/L (46-116); ANION GAP 4 mmol/L (7-16); BUN 7 mg/dL (7-18); CALCIUM 7.5 mg/dL (8.5-10.1); CHLORIDE 111 mmol/L (98-107); CO2 31 mmol/L (21-32); CREATININE 0.7 mg/dL (0.6-1.3); GLUCOSE 104 mg/dL (70-99); MAGNESIUM 1.9 mg/dL (1.8-2.4); POTASSIUM 3.7 mmol/L (3.5-5.1); SGOT 5 U/L (15-37); SGPT < 6 U/L (30-65); SODIUM 146 mmol/L (136-145); TOTAL BILIRUBIN 0.2 mg/dL (<0.1-1.0); TOTAL PROTEIN 5.4 g/dL (6.4-8.2)
[2020-07-03 08:00] VITALS: BP 138/74
[2020-07-03 15:52] VITALS: BP 131/68
--- NOTE | 2020-07-03 16:30 | NUR ---
SPOKE WITH PT. SHE LIVES WITH HER DAUGHTER,BEATRICE. BEATRICE DOES MOST OF THE GLUED WOOD TESTER. PT.HAS A WALKER,HOME O2 THROUGH [facility] AND A BATH BENCH. HAS A HX OF [facility] AND SNF AT [facility]. HAD ID CONSULT TODAY. AT DISCHARGE PER ID, SHE CAN GO HOME ON PO ANTIBIOTICS. MAY NEED HH AT DISCHARGE.
--- NOTE | 2020-07-03 18:44 | NUR ---
PT WAS TAken DOWN TO HAVE HER EGD AND COLONOSCOPE AT 1000. THIS AM PT BROUGHT BACK TO ROOM. VSS AFEBRILE. SALINE LOCK IN HER RIGHT HAND WITH ANTIBIOTICS INFUSING WITH OUT DIFFICULTY. PT UP TO BSC AND WAS BLADDERED SCAN AFTER WITH ONLY 135 LEFT IN HER BLADDER. WILL CONTINUE TO MONITOR PLAN OF CARE. POSSIBLE DISCHARGE TOMORROW.
[2020-07-03 21:08] VITALS: BP 108/53
[2020-07-04 00:44] VITALS: BP 91/46
[2020-07-04 04:13] VITALS: BP 109/64
[2020-07-04 04:37] LABS: HEMATOCRIT 27.5 % (37.0-47.0); HEMOGLOBIN 8.8 gm/dL (12.0-15.0); MCH 28.1 pg (26.0-34.0); MCV 87.9 fL (80.0-100.0); MPV 7.9 fl. (7.2-11.1); RBC 3.13 mil/uL (4.20-5.00); RDW-CV 15.6 % (10.5-14.5); WBC 4.4 thou/uL (4.0-11.0)
[2020-07-04 04:58] LABS: ALBUMIN 2.4 g/dL (3.4-5.0); ALKALINE PHOSPHATASE 63 U/L (46-116); ANION GAP 3 mmol/L (7-16); BUN 5 mg/dL (7-18); CALCIUM 8.2 mg/dL (8.5-10.1); CHLORIDE 108 mmol/L (98-107); CO2 32 mmol/L (21-32); CREATININE 0.9 mg/dL (0.6-1.3); GLUCOSE 101 mg/dL (70-99); MAGNESIUM 1.9 mg/dL (1.8-2.4); POTASSIUM 3.7 mmol/L (3.5-5.1); SGOT 5 U/L (15-37); SGPT < 6 U/L (30-65); SODIUM 143 mmol/L (136-145); TOTAL BILIRUBIN 0.3 mg/dL (<0.1-1.0); TOTAL PROTEIN 5.1 g/dL (6.4-8.2)
[2020-07-04 05:08] LABS: PREALBUMIN 14.8 mg/dL (18.0-35.7)
--- NOTE | 2020-07-04 05:35 | NUR ---
PT SLEPT FAIRLY WELL OVERNIGHT, UP TO BSC TO VOID. AOX4, ABLE TO USE CALL LITE AND MAKE NEEDS KNOWN. O2 3L PER HOME. RECEIVING SCHEDULED HYDROCODONE FOR BACK PAIN, BACLOFEN ONCE PRN. R FA SL IV, ABX GIVEN SCHEDULED. AM LABS.
[2020-07-04 08:00] VITALS: BP 133/68
[2020-07-04] MEDS ORDERED: MACROBID 100 M100 MG PO (08:35)
[2020-07-04 10:03] VITALS: BP 133/68
--- NOTE | 2020-07-04 10:16 | NUR ---
Pt discharging to home today, CM faxed HH orders to [facility].
[2020-07-04 13:36] VITALS: BP 133/68
--- NOTE | 2020-07-04 16:15 | NUR ---
PATIENT GIVEN DISCHARGE INSTRUCTIONS AND MEDICTIONS REVIEWED; ALSO GIVEN INFORMATION SHEETS ON MACROBID. PATIENT DENIES ANY QUESTIONS/CONCERNS PRIOR TO DISCHARGE. PATIENT LEFT UNIT VIA WHEELCHAIR WITH PERSONAL BELONGINGS, ACCOMPANIED BY NURSING STAFF, AT APPROX. 1615 TO MEET DAUGHTER AT ER ENTRANCE.
[2020-07-04 16:18] VITALS: BP 133/68
--- NOTE | 2020-07-08 12:07 | PATH ---
[address] [address] PATHOLOGY RPT PROCEDURE Name: ARACELY MALDONADO Room: [address] IN M.R.#: [id number] Admission: 07/01/20 Date of : 52 Discharge: 07/04/20 Report #: [id number] Path Case #: [id number] LCA Accession Number: [id number] . 01 Material submitted: . PART A: cecum - CECAL POLYP COLD SNARE PART B: colon - MID TRANSVERSE COLON POLYP X2 HOT SNARE. Modifiers: mid, transverse . 01 Clinical history: . EGD AND COLONOSCOPY . 02 Diagnosis: A. Cecal polyp (cold snare): - Hyperplastic polyp. . B. Mid transverse colon polyp x 2 (hot snare): - Multiple tubular adenomas, negative for high-grade dysplasia. (NARESH:pit 07/08/2020) QTP 07/08/2020 0956 Local . 02 Electronically signed: . Patrick Colmenares MD, Pathologist NPI- [id number] . 01 Gross description: . A. The specimen is received in formalin, labeled "Aracely Maldonado, cecal polyp". Received is a segment of pale dawson tissue measuring 0.3 cm in maximum dimensions. The specimen is submitted entirely in cassette A1. . B. The specimen is received in formalin, labeled "Aracely Maldonado, mid transverse colon polyp x2". Received are three segments of pale dawson tissue ranging in size from 0.4-1.0 cm in maximum dimensions. The specimen is submitted entirely in cassette B1. (CAA; 07/07/2020) QAC/QAC 07/07/2020 1120 Local . 02 Pathologist provided ICD-10: K63.5, D12.3 . 02 CPT . 353517, 684691 Specimen Comment: A courtesy copy of this report has been sent to [phone] Specimen Comment: Report sent to , / Performed at: [address] [facility], [place] [id number] MD Josue Pinto MD Phone: [phone] [place] [address] PATHOLOGY RPT PROCEDURE Name: ARACELY MALDONADO Room: [address] IN M.R.#: [id number] Admission: 07/01/20 Date of : 52 Discharge: 07/04/20 Report #: [id number] Path Case #: [id number] Performed at: 02 [facility] [address], [place] [id number] MD Patrick Colmenares MD Phone: [phone]
== END 2020-07-04 16:15 | disposition home health service (06) | DRG 372 ==
LOC: M.ERS 21:03 → M.TBA-ER 07-01 00:21 → M.3W 07-01 00:21
PROVIDERS: Family Medicine; Internal Medicine; Internal Medicine Gastroenterology; ADMIT Family Medicine; ATTEND Family Medicine
DX: A04.9 Bacterial intestinal infection, unspecified (principal); N39.0 Urinary tract infection, site not specified; K56.7 Ileus, unspecified; E87.1 Hypo-osmolality and hyponatremia; Z16.12 Extended spectrum beta lactamase (ESBL) resistance; E86.0 Dehydration; K21.9 Gastro-esophageal reflux disease without esophagitis; G89.29 Other chronic pain; M54.9 Dorsalgia, unspecified; J44.9 Chronic obstructive pulmonary disease, unspecified; E03.9 Hypothyroidism, unspecified; K44.9 Diaphragmatic hernia without obstruction or gangrene; K57.90 Diverticulosis of intestine, part unspecified, without perforation or abscess without bleeding; B96.20 Unspecified Escherichia coli [E. coli] as the cause of diseases classified elsewhere; G20 Parkinson's disease; D12.0 Benign neoplasm of cecum; K57.30 Diverticulosis of large intestine without perforation or abscess without bleeding; Z96.643 Presence of artificial hip joint, bilateral; Z20.822 Contact with and (suspected) exposure to COVID-19; Z98.891 History of uterine scar from previous surgery; Z90.49 Acquired absence of other specified parts of digestive tract; Z88.8 Allergy status to other drugs, medicaments and biological substances; Z79.899 Other long term (current) drug therapy; Z87.891 Personal history of nicotine dependence

== ENCOUNTER → 2020-08-03 | Outpatient (CLI) | payer OTHER, MEDICAID ==
[~2020-08-03] MED LIST changes: +BLOOD PRESSURE; +COZAAR 25 MG TA25 M1 PO; +MACROBID 100 M100 MG PO
[2020-08-03 09:17] LABS: ABSOLUTE EOSINOPHILS 0.1 thou/uL (0.0-0.7); ABSOLUTE LYMPHOCYTES 0.8 thou/uL (0.8-5.3); ABSOLUTE MONOCYTES 0.5 thou/uL (0.0-1.2); ABSOLUTE NEUTROPHILS 4.5 thou/uL (1.6-8.1); BASOPHILS 0.3 %; EOSINOPHILS 2.4 %; HEMATOCRIT 34.1 % (37.0-47.0); HEMOGLOBIN 10.9 gm/dL (12.0-15.0); LYMPHOCYTES 13.6 %; MCH 28.2 pg (26.0-34.0); MCV 88.2 fL (80.0-100.0); MONOCYTES 7.9 %; MPV 7.6 fl. (7.2-11.1); NUCLEATED RBCS 0 /100WBC; PLATELET COUNT* 186 thou/uL (150-400); POLYS 75.8 %; RBC 3.87 mil/uL (4.20-5.00); RDW-CV 16.4 % (10.5-14.5); WBC 5.9 thou/uL (4.0-11.0)
[2020-08-03 09:24] LABS: CALCIUM 8.7 mg/dL (8.5-10.1); CREATININE 0.8 mg/dL (0.6-1.3); POTASSIUM 3.9 mmol/L (3.5-5.1)
[2020-08-03 09:29] LABS: ALBUMIN 3.3 g/dL (3.4-5.0); TOTAL BILIRUBIN 0.3 mg/dL (<0.1-1.0); TOTAL PROTEIN 7.1 g/dL (6.4-8.2)
[2020-08-03 10:38] LABS: ESR (SEDRATE) 35 mm/hr (0-30)
== END ==
LOC: M.LAB 08:57 → M.CT 11:30
PROVIDERS: ATTEND Internal Medicine Gastroenterology
DX: N28.1 Cyst of kidney, acquired (principal); D50.9 Iron deficiency anemia, unspecified; R63.4 Abnormal weight loss; K57.30 Diverticulosis of large intestine without perforation or abscess without bleeding; R19.5 Other fecal abnormalities; M41.85 Other forms of scoliosis, thoracolumbar region

== ENCOUNTER 2020-10-29 14:59 | Inpatient (IN) | payer OTHER, MEDICAID ==
[~2020-10-29] VITALS: Ht 180.3 cm; Wt 110.0 kg
[2020-10-29 15:10] VITALS: BP 126/73
[2020-10-29] MEDS ORDERED: LASIX 40 MG TAB40 MG PO (15:57)
[2020-10-29] MEDS ORDERED: PROAIR HFA8.5 GM INH (15:58)
[2020-10-29] MEDS ORDERED: VENTOLIN HFA INH8 GM INH (15:58)
[2020-10-29 15:59] LABS: ABSOLUTE BASOPHILS 0.1 thou/uL (0.0-0.2); ABSOLUTE EOSINOPHILS 0.2 thou/uL (0.0-0.7); ABSOLUTE MONOCYTES 0.7 thou/uL (0.0-1.2); ABSOLUTE NEUTROPHILS 7.7 thou/uL (1.6-8.1); BASOPHILS 0.6 %; EOSINOPHILS 1.6 %; HEMATOCRIT 38.9 % (37.0-47.0); HEMOGLOBIN 12.4 gm/dL (12.0-15.0); LYMPHOCYTES 10.4 %; MCH 29.7 pg (26.0-34.0); MCV 92.9 fL (80.0-100.0); MONOCYTES 7.5 %; MPV 8.1 fl. (7.2-11.1); NUCLEATED RBCS 0 /100WBC; PLATELET COUNT* 196 thou/uL (150-400); POLYS 79.9 %; RBC 4.19 mil/uL (4.20-5.00); RDW-CV 15.5 % (10.5-14.5); WBC 9.7 thou/uL (4.0-11.0)
[2020-10-29 16:04] LABS: URINE BILIRUBIN NEGATIVE (Negative); URINE BLOOD NEGATIVE (Negative); URINE CLARITY CLEAR; URINE COLOR YELLOW; URINE GLUCOSE-RANDOM NEGATIVE (Negative); URINE KETONES NEGATIVE (Negative); URINE NITRITE-REFLEX NEGATIVE (Negative); URINE PROTEIN NEGATIVE (Negative); URINE SPECIFIC GRAVITY 1.025 (1.005-1.030); URINE UROBILINOGEN 0.2 E.U./dl (0.2-1.0)
[2020-10-29 16:05] LABS: URINE LEUKOCYTES-REFLEX 2+ (Negative)
[2020-10-29 16:15] LABS: CRYSTALS None Seen /LPF (None Seen); HYALINE CASTS 4-10 Moderate /LPF (None Seen); MUCUS 0-3 Light strn/LPF (None Seen); SQUAMOUS 0-3 Few /LPF (0-3); URINE RBC 0-2 Rare /HPF (0-2); URINE WBC-REFLEX >25 Many /HPF (0-5)
[2020-10-29 16:23] LABS: CALCIUM 8.6 mg/dL (8.5-10.1); CREATININE 1.1 mg/dL (0.6-1.3); POTASSIUM 3.9 mmol/L (3.5-5.1)
[2020-10-29 16:34] LABS: ALBUMIN 3.2 g/dL (3.4-5.0); TOTAL BILIRUBIN 0.3 mg/dL (<0.1-1.0)
[2020-10-29 19:36] VITALS: BP 104/64
[2020-10-29 20:00] VITALS: BP 105/68
[2020-10-30] VITALS: BP 103/51
--- NOTE | 2020-10-30 00:46 | NUR ---
PT ADMIT TO 232. ARRIVED TO FLOOR 1914. ALERT ORIENTED. PAIN MED AND HS MEDS GIVEN. PT IS ON HOME O2 AT 3 LITERS NC AND HERE ALSO. TREMORS NOTED. VEGETABLE HANDLER TRACING SR. FALL PRECAUTIONS IN PLACE,
[2020-10-30 05:08] VITALS: BP 105/54
[2020-10-30 08:00] VITALS: BP 95/58
--- NOTE | 2020-10-30 10:22 | EKG ---
[place] [address] ELECTROCARDIOGRAM REPORT Name: CORA MALDONADO Room: [address] IN ..#: [id number] Admission: 10/29/20 Attend Phys: Anisha Escobedo, Discharge: Date of : 52 Date of Service: 10/29/20 1549 Report #: [id number] THIS REPORT FOR: //name// [facility] ED Test Date: 2020-10-29 Test Time: 15:49:08 Pat Name: CORA MALDONADO Department: Room: [facility] Gender: F Complex Director: VINNIE : 1950 Requested By: Migel Lawson Order Number: [id number] MD: Jose Shoemaker Measurements Intervals [place] Rate: 76 P: 40 [place]: 175 QRS: 86 QRSD: 104 T: 23 QT: 402 QTc: 453 Interpretive Statements Sinus rhythm Borderline right axis deviation Borderline repolarization abnormality Compared to ECG 06/30/2020 21:10:54 No significant changes Electronically Signed On 10-30-2020 10:22:10 CDT by Jose Shoemaker [email or web address] <ELECTRONICALLY SIGNED> By: Jose Shoemaker MD, FAC 10/30/20 1022 1549 1549 Jose Shoemaker MD, [facility] /EPI
--- NOTE | 2020-10-30 10:38 | NUR ---
CM ASSESSMENT: PT A&O, AND NORMALLY INDEPENDENT WITH ADL'S. 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 PT USES A WALKER FOR MOBILITY. PT USES 3L O2 AT ALL TIMES AT BASELINE. PT HAS PAST HX OF HH WITH [facility]. PT HAS PAST HX OF SNF AT [facility]. CM WILL REMAIN AVAILABLE TO ASSIST AND FOLLOW NEEDED.
[2020-10-30 13:17] VITALS: BP 110/70
[2020-10-30 16:23] VITALS: BP 99/55
[2020-10-30 20:00] VITALS: BP 101/59
[2020-10-31] VITALS: BP 110/59
[2020-10-31 04:00] VITALS: BP 114/57
--- NOTE | 2020-10-31 07:01 | NUR ---
ASSUMED CARE OF PT AFTER REPORT AT 1930. PT A&OX4. VSS. PHYSICAL ASSESSMENT COMPLETED AND CHARTED. PT ON O2 AT 1LNC. PT TRACING SR/PVC ON TELE. PT UPSTANDBY TO BSC. PT COMPLAINED OF GENERALIZED BODY PAIN-MED GIVEN PER MAR. FALL PRECAUTIONS IN PLACE. CALL LIGHT WITHIN REACH.
[2020-10-31 08:00] VITALS: BP 89/48
[2020-10-31] MEDS ORDERED: METHENAMINE MAND1 G2 PO (08:14)
[2020-10-31 08:35] LABS: ABSOLUTE EOSINOPHILS 0.1 thou/uL (0.0-0.7); ABSOLUTE LYMPHOCYTES 1.1 thou/uL (0.8-5.3); ABSOLUTE MONOCYTES 0.3 thou/uL (0.0-1.2); ABSOLUTE NEUTROPHILS 3.6 thou/uL (1.6-8.1); BASOPHILS 0.8 %; EOSINOPHILS 2.4 %; LYMPHOCYTES 20.4 %; MCHC 32.5 g/dL (28.0-37.0); MCV 92.1 fL (80.0-100.0); MONOCYTES 6.7 %; MPV 8.2 fl. (7.2-11.1); NUCLEATED RBCS 0 /100WBC; PLATELET COUNT* 185 thou/uL (150-400); POLYS 69.7 %; RBC 4.34 mil/uL (4.20-5.00); RDW-CV 14.8 % (10.5-14.5); WBC 5.2 thou/uL (4.0-11.0)
[2020-10-31 08:49] LABS: CREATININE 0.8 mg/dL (0.6-1.3); POTASSIUM 3.6 mmol/L (3.5-5.1)
[2020-10-31] MEDS ORDERED: MACROBID 100 M100 MG PO (12:16)
[2020-10-31 13:25] VITALS: BP 89/48
[2020-10-31 13:27] VITALS: BP 112/58
== END 2020-10-31 16:46 | disposition home or self-care (01) | DRG 690 ==
LOC: M.ERS 14:59 → M.2W 17:05 → M.TBA-ER 17:05 → M.2W 20:09
PROVIDERS: Emergency Medicine Emergency Medical Services; Internal Medicine; ADMIT Internal Medicine; ATTEND Internal Medicine
DX: N39.0 Urinary tract infection, site not specified (principal); G20 Parkinson's disease; G89.29 Other chronic pain; M54.9 Dorsalgia, unspecified; J44.9 Chronic obstructive pulmonary disease, unspecified; E03.9 Hypothyroidism, unspecified; M19.90 Unspecified osteoarthritis, unspecified site; G47.30 Sleep apnea, unspecified; I48.91 Unspecified atrial fibrillation; G25.3 Myoclonus; I87.8 Other specified disorders of veins; Z96.643 Presence of artificial hip joint, bilateral; Z20.822 Contact with and (suspected) exposure to COVID-19; Z79.899 Other long term (current) drug therapy; Z88.1 Allergy status to other antibiotic agents; Z88.8 Allergy status to other drugs, medicaments and biological substances; Z87.891 Personal history of nicotine dependence

== ENCOUNTER 2021-02-24 15:32 | Inpatient (IN) | payer OTHER, MEDICAID ==
[~2021-02-24] VITALS: Ht 180.3 cm; Wt 97.5 kg
[~2021-02-24 15:32] MED LIST changes: +METHENAMINE MAND1 G2 PO; +VENTOLIN HFA INH8 GM INH
[2021-02-24 15:38] VITALS: BP 91/60
[2021-02-24 16:42] LABS: HEMATOCRIT 35.8 % (37.0-47.0); HEMOGLOBIN 11.6 gm/dL (12.0-15.0); MCH 29.9 pg (26.0-34.0); MCHC 32.3 g/dL (28.0-37.0); MCV 92.6 fL (80.0-100.0); MPV 7.9 fl. (7.2-11.1); NUCLEATED RBCS 0 /100WBC; PLATELET COUNT* 148 thou/uL (150-400); RBC 3.87 mil/uL (4.20-5.00); RDW-CV 14.9 % (10.5-14.5)
[2021-02-24 16:42] LABS: URINE BILIRUBIN NEGATIVE (Negative); URINE BLOOD NEGATIVE (Negative); URINE CLARITY CLEAR; URINE COLOR YELLOW; URINE GLUCOSE-RANDOM NEGATIVE (Negative); URINE KETONES TRACE (Negative); URINE LEUKOCYTES-REFLEX NEGATIVE (Negative); URINE NITRITE-REFLEX NEGATIVE (Negative); URINE PROTEIN NEGATIVE (Negative); URINE SPECIFIC GRAVITY 1.015 (1.005-1.030); URINE UROBILINOGEN 0.2 E.U./dl (0.2-1.0)
[2021-02-24 16:51] LABS: CALCIUM 8.1 mg/dL (8.5-10.1); CREATININE 0.9 mg/dL (0.6-1.3); POTASSIUM 3.5 mmol/L (3.5-5.1)
[2021-02-24 17:01] LABS: ALBUMIN 2.6 g/dL (3.4-5.0); TOTAL BILIRUBIN 0.7 mg/dL (<0.1-1.0); TOTAL PROTEIN 6.2 g/dL (6.4-8.2)
--- NOTE | 2021-02-24 17:16 | EKG ---
[place] [address] ELECTROCARDIOGRAM REPORT Name: MALDONADOCORA Room: [facility]#: [id number] Admission: 02/24/21 Attend Phys: Discharge: Date of : 52 Date of Service: 02/24/21 1620 Report #: [id number] THIS REPORT FOR: //name// [facility] ED Test Date: 2021-02-24 Test Time: 16:20:28 Pat Name: CORA MALDONADO Department: Room: Gender: F Patrol Man: KIRILL : 1950 Requested By: Kelvin Winston Order Number: [id number] MD: Jose Shoemaker Measurements Intervals [place] Rate: 75 P: 38 [place]: 167 QRS: 86 QRSD: 104 T: 52 QT: 401 QTc: 448 Interpretive Statements Sinus rhythm Borderline right axis deviation Abnormal T, consider ischemia, anterior leads Compared to ECG 10/29/2020 15:49:08 no change Electronically Signed On 02-24-2021 17:16:20 CDT by Jose Shoemaker [email or web address] <ELECTRONICALLY SIGNED> By: Jose Shoemaker MD, [facility] 02/24/21 1716 1620 1620 Jose Shoemaker MD, [facility] /EPI
[2021-02-24 17:29] LABS: ABSOLUTE LYMPHOCYTES 0.5 thou/uL (0.8-5.3); ABSOLUTE MONOCYTES 0.6 thou/uL (0.0-1.2); ABSOLUTE NEUTROPHILS 10.9 thou/uL (1.6-8.1); PLATELET ESTIMATE DECREASED
[2021-02-24 21:00] VITALS: BP 105/68
[2021-02-25 03:30] VITALS: BP 100/52
[2021-02-25 08:00] VITALS: BP 111/64
[2021-02-25 15:41] VITALS: BP 99/47
[2021-02-25 20:00] VITALS: BP 109/61
[2021-02-26 03:51] VITALS: BP 133/58
[2021-02-26 07:05] LABS: ABSOLUTE LYMPHOCYTES 0.6 thou/uL (0.8-5.3); ABSOLUTE MONOCYTES 0.6 thou/uL (0.0-1.2); ABSOLUTE NEUTROPHILS 4.1 thou/uL (1.6-8.1); BASOPHILS 0.4 %; EOSINOPHILS 0.3 %; HEMATOCRIT 36.8 % (37.0-47.0); HEMOGLOBIN 11.8 gm/dL (12.0-15.0); LYMPHOCYTES 10.7 %; MCH 29.3 pg (26.0-34.0); MCHC 32.1 g/dL (28.0-37.0); MCV 91.4 fL (80.0-100.0); MONOCYTES 11.6 %; MPV 7.8 fl. (7.2-11.1); NUCLEATED RBCS 0 /100WBC; PLATELET COUNT* 174 thou/uL (150-400); RBC 4.03 mil/uL (4.20-5.00); RDW-CV 14.4 % (10.5-14.5); WBC 5.3 thou/uL (4.0-11.0)
[2021-02-26 07:20] LABS: ALBUMIN 2.7 g/dL (3.4-5.0); CALCIUM 8.4 mg/dL (8.5-10.1); CREATININE 0.7 mg/dL (0.6-1.3); POTASSIUM 3.5 mmol/L (3.5-5.1); TOTAL BILIRUBIN 0.3 mg/dL (<0.1-1.0); TOTAL PROTEIN 6.6 g/dL (6.4-8.2)
[2021-02-26 08:00] VITALS: BP 113/66
[2021-02-26 20:00] VITALS: BP 106/67
[2021-02-27 08:15] VITALS: BP 114/64
[2021-02-27] MEDS ORDERED: PREDNISONE 10 M10 MG PO (08:42)
[2021-02-27] MEDS ORDERED: CEFDINIR300 MG PO (08:42)
[2021-02-27 12:08] VITALS: BP 114/64
[2021-02-27 15:52] VITALS: BP 109/60
== END 2021-02-27 17:00 | disposition home health service (06) | DRG 177 ==
LOC: M.ERS 15:32 → M.TBA-ER 17:46 → M.3W 17:46
PROVIDERS: Family Medicine; ADMIT Internal Medicine; ATTEND Internal Medicine
DX: J15.6 Pneumonia due to other Gram-negative bacteria (principal); J96.01 Acute respiratory failure with hypoxia; J44.1 Chronic obstructive pulmonary disease with (acute) exacerbation; E44.0 Moderate protein-calorie malnutrition; J44.0 Chronic obstructive pulmonary disease with (acute) lower respiratory infection; G89.29 Other chronic pain; M54.9 Dorsalgia, unspecified; G20 Parkinson's disease; J32.9 Chronic sinusitis, unspecified; G44.209 Tension-type headache, unspecified, not intractable; G47.00 Insomnia, unspecified; F02.80 Dementia in other diseases classified elsewhere, unspecified severity, without behavioral disturbance, psychotic disturbance, mood disturbance, and anxiety; I48.0 Paroxysmal atrial fibrillation; E03.9 Hypothyroidism, unspecified; M19.90 Unspecified osteoarthritis, unspecified site; Z96.643 Presence of artificial hip joint, bilateral; Z20.822 Contact with and (suspected) exposure to COVID-19; Z79.899 Other long term (current) drug therapy; Z88.8 Allergy status to other drugs, medicaments and biological substances; Z68.30 Body mass index [BMI] 30.0-30.9, adult